=== PATIENT | female | born 1945 | race Caucasian/White ===

== ENCOUNTER 2017-07-15 06:44 | Emergency (ER) | payer MEDICARE, OTHER, SELFPAY ==
[2017-07-15 06:45] VITALS: BP 135/79; PULSE 77; RESP 20; TEMP 36.5; O2SAT 97; BMI 26.4
--- NOTE | 2017-07-15 06:59 | RAD_ITS ---
STUDY: X-RAY CHEST REASON FOR EXAM: Female, 71 years old. Chest pain, cough, asthma attack TECHNIQUE: PA and lateral views of the chest. COMPARISON: 02/12/2017 FINDINGS: There are superimposed monitor leads. There is hyperinflation of the lungs consistent with chronic obstructive lung disease (COPD). Stable mild linear interstitial changes in the lung bases left greater than right. There is no focal parenchymal abnormality. There is no demonstrated pleural abnormality. Normal size heart. Normal mediastinum and leif. Normal visualized pulmonary arteries. There is atherosclerotic calcification of the aortic arch with tortuosity. There is demineralization of the osseous structures. Stable mild loss of vertebral body height lower thoracic spine. Normal visualized ribs, clavicles, and shoulders. There is no demonstrated abnormality of the visualized soft tissue structures of the upper abdomen. RAD/Chest PA and Lateral IMPRESSION: COPD, osteopenia and presumed scarring left base. No acute cardiopulmonary disease. No significant interval change. Electronically Signed: Jennifer Mota MD at 8:03 EDT , Service support ,
--- NOTE | 2017-07-15 06:59 | EKG12_ITS ---
Test Reason : SOB Blood Pressure : / mmHG Vent. Rate : 062 BPM Atrial Rate : 062 BPM P-R Int : 150 ms QRS Dur : 088 ms QT Int : 430 ms P-R-T Axes : 073 044 038 degrees QTc Int : 436 ms Normal sinus rhythm Normal ECG Confirmed by TAMMIE CLAYTON MD ([id number]), news editor CLIVE HICKEY ([id number] on 07/17/2017 12:55:04 PM Referred By: WESTLEY Confirmed By:TAMMIE CLAYTON MD
--- NOTE | 2017-07-15 07:09 | ED.VISSUMM ---
- ER Visit Summary Date of Service: 07/15/17 Chief Complaint: Cough History of Present Illness: The patient is a 71 F with a cough over the past week. The patient has a history of asthma and aspiration pneumonia. She saw her PCP and was started on prednisone. She is also taking rescue inhalers and albuterol nebulizer treatments at home, but she has a continued cough. The cough has been so severe that she had posttussive emesis, and she developed petechial rash around her head and neck after coughing. She has some chest discomfort but no other associated symptoms. Minimal sputum. She did have a fever several days ago. Physical Examination: Vital signs unremarkable. Oxygen 97% on room air. Patient is sitting upright and appears comfortable. She is speaking in full sentences. Head and neck shows a petechial rash. HEENT them otherwise normal. Heart regular rate and rhythm. Lungs clear with good air movement. Test Results: EKG, labs, influenza testing, and chest x-ray pending. Emergency Department Course and Treatment: Patient was treated with Solu-Medrol and DuoNeb while awaiting results. She was placed on a monitor. Chest x-ray showed chronic changes but nothing acute or different from previous. EKG showed sinus rhythm at a rate of 62. No sign of ischemia or infarction. CBC normal. Basic metabolic panel unremarkable. Troponin normal. Influenza test negative. On reassessment, patient is sitting comfortably. Vitals are stable. Vitals are normal. I believe the patient is appropriate for outpatient care. Given her medical history as well as duration of her symptoms, will prescribe doxycycline. Will also prescribe Tessalon Perles. She should continue her prednisone and albuterol treatment at home. Follow-up with her doctor. Call tomorrow. Return for new or worsening symptoms. Patient did request an ultrasound to rule out aspiration pneumonia. She said this was the only way it was diagnosed in the past. I advised her that the x-ray was sufficient at this time given her clinical picture. I do not find an indication for ultrasound. She can follow-up with her PCP or return if worse. Treatment Plan: As above Disposition: Discharged Impression: 1. Bronchitis This note was generated with Bilnaation software. It may contain incorrect words, spelling, and punctuation that were not noted in review of the chart prior to signing ED Disposition - Plan for ED Patient: Chief Complaint: Cough Referrals: Ciesa,Annetta [Primary Care Provider] -
--- NOTE | 2017-07-15 07:12 | ED.DCSUM_ITS ---
- ER Visit Summary Date of Service: 07/15/17 Chief Complaint: Cough History of Present Illness: The patient is a 71 F with a cough over the past week. The patient has a history of asthma and aspiration pneumonia. She saw her PCP and was started on prednisone. She is also taking rescue inhalers and albuterol nebulizer treatments at home, but she has a continued cough. The cough has been so severe that she had posttussive emesis, and she developed petechial rash around her head and neck after coughing. She has some chest discomfort but no other associated symptoms. Minimal sputum. She did have a fever several days ago. Physical Examination: Vital signs unremarkable. Oxygen 97% on room air. Patient is sitting upright and appears comfortable. She is speaking in full sentences. Head and neck shows a petechial rash. HEENT them otherwise normal. Heart regular rate and rhythm. Lungs clear with good air movement. Test Results: EKG, labs, influenza testing, and chest x-ray pending. Emergency Department Course and Treatment: Patient was treated with Solu-Medrol and DuoNeb while awaiting results. She was placed on a monitor. Chest x-ray showed chronic changes but nothing acute or different from previous. EKG showed sinus rhythm at a rate of 62. No sign of ischemia or infarction. CBC normal. Basic metabolic panel unremarkable. Troponin normal. Influenza test negative. On reassessment, patient is sitting comfortably. Vitals are stable. Vitals are normal. I believe the patient is appropriate for outpatient care. Given her medical history as well as duration of her symptoms, will prescribe doxycycline. Will also prescribe Tessalon Perles. She should continue her prednisone and albuterol treatment at home. Follow-up with her doctor. Call tomorrow. Return for new or worsening symptoms. Patient did request an ultrasound to rule out aspiration pneumonia. She said this was the only way it was diagnosed in the past. I advised her that the x- ray was sufficient at this time given her clinical picture. I do not find an indication for ultrasound. She can follow-up with her PCP or return if worse. Treatment Plan: As above Disposition: Discharged Impression: 1. Bronchitis This note was generated with aSmallWorldation software. It may contain incorrect words, spelling, and punctuation that were not noted in review of the chart prior to signing ED Disposition - Plan for ED Patient: Chief Complaint: Cough Referrals: Ciesa,Annetta [Primary Care Provider] -
[2017-07-15 07:15] VITALS: PULSE 68; RESP 20
[2017-07-15] MEDS: Ipratropium/Albuterol Sulfate 3 ML AMPUL.NEB INHALATION (07:17)
[2017-07-15] MEDS: MethylPREDNISolone 125 MG/2 ML Vial IV (07:17)
[2017-07-15 07:19] VITALS: O2SAT 98
[2017-07-15 07:19] LABS: Absolute Lymphocyte Count 2.29 X10^3/ul (0.83-4.51); Basophil# 0.02 X10^3/uL; Basophil% 0.2 % (0-1); Eosinophil# 0.01 X10^3/uL; Eosinophils% 0.1 % (0-5); Hematocrit 39.3 % (37-47); Lymphocyte # 2.29 X10^3/ul (4.0); Lymphocyte % 22.7 % (19-41); Mean Corp Hgb Conc 33.1 g/gl (32-36); Mean Corpuscular Hgb 30.2 pg (27.0-32.0); Mean Corpuscular Volume 91.4 fL (81-99); Mean Platelet Vol. 9.3 fl (6.2-12.0); Monocyte# 0.77 X10^3/uL; Monocyte% 7.6 % (0-10); Neutrophil # 6.95 X10^3/uL (2.7-7.7); POSITIVE COUNT NO; POSITIVE DIFFERENTIAL NO; POSITIVE MORPHOLOGY NO; Platelet Count 242 K/mm3 (150-450); RBC Distribution Width CV 12.8 % (11.6-14.6); RBC Distribution Width SD 42.3 fl (35.1-43.9); White Blood Count 10.1 K/mm3 (4.4-11.0)
[2017-07-15 07:35] LABS: Anion Gap 7 (5-15); BUN 15 mg/dL (7-18); BUN/Creat Ratio 15.3 RATIO (10-20); Calcium,Total 8.6 mg/dL (8.5-10.1); Chloride 105 mmol/L (98-107); Creatinine, Serum 0.98 mg/dL (0.55-1.02); EST Glomerular Filtration Rate 60 mL/min (>60); Est Glom Filt Rate - Afr Amer 72 mL/min (>60); Estimated Creatinine Clearance 46.13 ml/min; Glucose 139 mg/dL (74-106); Potassium 3.7 mmol/L (3.5-5.1); Sodium Level 140 mmol/L (136-145)
--- NOTE | 2017-07-15 08:21 | ED.DEP ---
ED Disposition - Plan for ED Patient: Chief Complaint: Cough Instructions: ED Bronchitis Asthmatic Prescriptions: Benzonatate [Tessalon Perle] 100 mg PO TID PRN PRN #20 cap PRN Reason: Cough Doxycycline Monohydrate 100 mg PO BID #20 cap Referrals: Annetta Anderson [Primary Care Provider] -
[2017-07-15 08:30] VITALS: BP 128/69; PULSE 54; RESP 18; O2SAT 97
== END 2017-07-15 08:30 | disposition home or self-care (01) ==
PROVIDERS: Emergency Provider Emergency Medicine; Family Provider Nurse Practitioner; PCP Nurse Practitioner
DX: J40 Bronchitis, not specified as acute or chronic (principal); R23.3 Spontaneous ecchymoses; J44.9 Chronic obstructive pulmonary disease, unspecified; K21.9 Gastro-esophageal reflux disease without esophagitis; Z87.01 Personal history of pneumonia (recurrent); Z91.09 Other allergy status, other than to drugs and biological substances; Z86.79 Personal history of other diseases of the circulatory system; Z87.891 Personal history of nicotine dependence; Z79.899 Other long term (current) drug therapy
CPT/HCPCS: 71046; 80048; 84484; 85025; 87804; 93005; 94640; 96374; 99284; A4216

== ENCOUNTER → 2017-07-17 14:09 | Outpatient (CLI) | payer MEDICARE, OTHER, SELFPAY ==
[2017-07-23 12:07] LABS: Clam <0.10 kU/L (Class 0); Codfish <0.10 kU/L (Class 0); Corn <0.10 kU/L (Class 0); Egg, White <0.10 kU/L (Class 0); Milk (Cow) <0.10 kU/L (Class 0); Peanut 0.12 kU/L (Class 0/I); SCALLOP <0.10 kU/L (Class 0); Shrimp <0.10 kU/L (Class 0); Soybean <0.10 kU/L (Class 0); Walnut, (Food) <0.10 kU/L (Class 0); Wheat <0.10 kU/L (Class 0)
[2017-07-24 16:14] LABS: SESAME SEED <0.10 kU/L (Class 0)
== END ==
PROVIDERS: Family Provider Nurse Practitioner; PCP Nurse Practitioner; Visit Provider Otolaryngology Otolaryngology/Facial Plastic Surgery
DX: T78.40XA Allergy, unspecified, initial encounter (principal); J45.909 Unspecified asthma, uncomplicated
CPT/HCPCS: 36415; 86003

== ENCOUNTER → 2017-07-25 09:42 | Outpatient (CLI) | payer MEDICARE, OTHER, SELFPAY ==
--- NOTE | 2017-07-25 09:50 | BD_ITS ---
STUDY: DUAL ENERGY X-RAY ABSORPTIOMETRY / DXA REASON FOR EXAM: Female, 71 years old. The patient is postmenopausal. Loss of height of 2 inches. TECHNIQUE: Bone Mineral Density (BMD) measurements of lumbar spine and bilateral hips were obtained. COMPARISON: Comparison is made with prior study dated July 13, 2015. FINDINGS: Lumbar Spine (L1-L4): g/cm2 (0.673) / T-score (-4.1) / Z-score (-2.5) Findings are suggestive of osteoporosis with a high fracture risk. Left Femur Total: g/cm2 (0.661) / T-score (-2.8) / Z-score (-1.3) Left Femoral Neck: g/cm2 (0.6-1) / T-score (-3.0) / Z-score (-1.3) Right Femur Total: g/cm2 (0.686) / T-score (-2.6) / Z-score (-1.1) Right Femoral Neck: g/cm2 (0.625) / T-score (-3.0) / Z-score (-1.3) The T-Scores on the most recent prior examination were: Lumbar Spine (L1-L4): There has been worsening of bone density since the previous examination. Left Femur Total: which represents a worsening of 8.2%. Right Femur Total: which represents a worsening of 5.1%. BD/Dexa Bone Density Study IMPRESSION: The patient is considered osteoporotic as outlined below according to World Shane Organization (WHO) criteria with a high fracture risk. There has been worsening of bone density since the previous examination. Reference Information: The T-score is the number of standard deviations above or below the standard which is normal for young adults at their peak bone mineral density. The World Health Organization (WHO) interprets the T-scores as follows: Above -1 Normal bone density Between -1 and -2.5 Osteopenia Equal to / or below -2.5 Osteoporosis As a practical clinical guideline, osteopenia may be graded as follows: Mild -1 through -1.5 Moderate -1.6 through -2.0 Severe -2.1 through -2.4 The Z-score is the number of standard deviations above or below age-matched controls. A Z-score of less than -1.5 would be considered abnormal. References: 1. NIH Osteoporosis and Related Bone Diseases http://www.osteo.org 2. International Society for Clinical Densitometry http://www.iscd.org 3. National Osteoporosis Foundation http://www.nof.org Electronically Signed: Ghassan Hercules MD at 11:19 EDT Tel [phone], Service support ,
== END ==
PROVIDERS: Family Provider Nurse Practitioner; PCP Nurse Practitioner; Visit Provider Nurse Practitioner
DX: Z78.0 Asymptomatic menopausal state (principal)
CPT/HCPCS: 77080

== ENCOUNTER 2017-08-03 11:10 | Emergency (ER) | payer MEDICARE, OTHER, SELFPAY ==
[2017-08-03 11:11] VITALS: BP 136/84; PULSE 87; RESP 28; TEMP 37.1; O2SAT 100; BMI 23.0
--- NOTE | 2017-08-03 11:35 | RAD_ITS ---
STUDY: X-RAY CHEST REASON FOR EXAM: Female, 71 years old. Weakness and syncope. TECHNIQUE: AP and lateral views of the chest. COMPARISON: Comparison is made with prior study dated July 15, 2017. FINDINGS: EKG electrodes are seen. Hyperinflation. Stable mild increased markings at the left lung base suggestive of linear atelectasis and/or scarring. There is no demonstrated pleural abnormality. Normal size heart. Normal mediastinum and leif. Normal visualized pulmonary arteries. There is atherosclerotic tortuosity of the aortic arch and descending thoracic aorta. There is demineralization of the osseous structures. Normal visualized ribs, clavicles, and shoulders. There is no demonstrated abnormality of the visualized soft tissue structures of the upper abdomen. RAD/Chest PA and Lateral IMPRESSION: Hyperinflation. No acute abnormality is seen. Electronically Signed: Ghassan Hercules MD at 12:34 EDT Tel [phone], Service support ,
--- NOTE | 2017-08-03 11:35 | EKG12_ITS ---
Test Reason : CP Blood Pressure : / mmHG Vent. Rate : 068 BPM Atrial Rate : 068 BPM P-R Int : 132 ms QRS Dur : 088 ms QT Int : 382 ms P-R-T Axes : 078 044 063 degrees QTc Int : 406 ms Normal sinus rhythm Normal ECG Confirmed by MATILDE WARD, TAMMIE ([id number]), pictures editor CLIVE HICKEY ([id number]) on 08/07/2017 1:49:41 PM Referred By: DORIS Confirmed By:TAMMIE CLAYTON MD
[2017-08-03] MEDS: 0.9% Normal Saline 1,000 ML 1000 ML IV (11:59)
[2017-08-03 12:15] LABS: Bacteria 0 SEEN /hpf (None Seen); Mucous, Urine 0 SEEN /hpf (<or=2+); Red Blood Cells-Urine 0 SEEN /hpf (0-5); Squamous Epithelial Cells - UA 0 SEEN /hpf (5-10); White Blood Cells 0 SEEN /hpf (0-5)
[2017-08-03 12:19] LABS: Absolute Lymphocyte Count 4.02 X10^3/ul (0.83-4.51); Absolute Neutrophil Count 6.3 X10^3/uL (2.0-7.7); Basophil# 0.03 X10^3/uL; Basophil% 0.3 % (0-1); Eosinophil# 0.18 X10^3/uL; Eosinophils% 1.5 % (0-5); Hemoglobin 14.1 g/dl (12.0-15.0); Lymphocyte # 4.02 X10^3/ul (4.0); Lymphocyte % 34.4 % (19-41); Mean Corp Hgb Conc 33.6 g/gl (32-36); Mean Corpuscular Volume 92.3 fL (81-99); Mean Platelet Vol. 9.7 fl (6.2-12.0); Monocyte# 1.11 X10^3/uL; Monocyte% 9.5 % (0-10); Neutrophil % 53.8 % (47-70); Platelet Count 224 K/mm3 (150-450); RBC Distribution Width CV 12.9 % (11.6-14.6); RBC Distribution Width SD 42.4 fl (35.1-43.9); Red Blood Count 4.55 M/mm3 (4.2-5.4); White Blood Count 11.7 K/mm3 (4.4-11.0)
[2017-08-03 12:24] LABS: POSITIVE COUNT NO; POSITIVE DIFFERENTIAL NO; POSITIVE MORPHOLOGY NO
[2017-08-03 12:34] LABS: Anion Gap 7 (5-15); BUN 17 mg/dL (7-18); BUN/Creat Ratio 15.9 RATIO (10-20); Chloride 106 mmol/L (98-107); Creatinine, Serum 1.07 mg/dL (0.55-1.02); EST Glomerular Filtration Rate 54 mL/min (>60); Est Glom Filt Rate - Afr Amer 65 mL/min (>60); Estimated Creatinine Clearance 40.47 ml/min; Glucose 85 mg/dL (74-106); Potassium 4.3 mmol/L (3.5-5.1); Sodium Level 143 mmol/L (136-145)
[2017-08-03 12:35] LABS: Color, Urine Yellow (Yellow); Glucose, Dipstick Normal (Normal); Ketone-Dipstick Negative (Negative); Leukocyte Esterase-Dipstick Negative /ul (Negative); Nitrite-Dipstick Negative (Negative); Occult Blood-Urine Negative /ul (Negative); Protein-Dipstick Negative (Negative); Specific Gravity, Urine 1.015 (1.002-1.030); Urine Bilirubin Dipstick Negative (Negative); Urine Clarity Sl. Cloudy (Clear); Urine Urobilinogen Normal (Normal)
--- NOTE | 2017-08-03 12:40 | ED.VISSUMM ---
- ER Visit Summary Date of Service: 08/03/17 Chief Complaint: Weakness History of Present Illness: The patient is a 71 F sees Annetta Anderson and Dr. Garibay. She reports that she has had gradually increasing weakness for the past 4 weeks. States that she has had a cough over the same timeframe. She reports that this is improving and is now productive clear sputum. She just finished doxycycline and prednisone. She reports that she does have shortness of breath that is worsened with walking and is unchanged with laying down. She reports the chest tightness with coughing only. She has no chest pain with exertion. Physical Examination: Vitals: Stable. Afebrile. General: Well-nourished and well-developed. Head: Normocephalic atraumatic. Neck: Supple, no lymphadenopathy. No JVD. Nontender. Cardiovascular: Regular rate and rhythm. No murmurs. Respiratory: No respiratory distress. Clear to auscultation bilaterally. Abdominal: Soft, nontender, nondistended, normal bowel sounds. No guarding, rebound, or peritoneal signs. Back: Nontender. Extremities: Nontender, no edema. Skin: Normal color, no rash. Neurologic: Alert and oriented ?3. Cranial nerves II through XII are intact. Normal strength and sensation. Psych: Depressed affect. Test Results: EKG is sinus at 60 with no acute changes. Troponin is negative. UA is normal. Chem-7 is more for creatinine 1.07. CBC is more for white count 11.7. Chest x-ray shows chronic changes with no infiltrate. Emergency Department Course and Treatment: Patient is resting comfortably and without complaint. Treatment Plan: This time I do not have an explanation for the patient's weakness. I feel that she is a suitable candidate for further outpatient evaluation. She will be discharged instructions to follow-up her primary care physician as soon as possible. Return to the emergency department for any worsening symptoms. Disposition: To home in improved and stable condition. Impression: 1. Weakness, uncertain cause. This note was generated with [employer] dictation software. It may contain incorrect words, spelling, and punctuation that were not noted in review of the chart prior to signing ED Disposition - Plan for ED Patient: Chief Complaint: Weakness Instructions: ED Weakness [facility] Referrals: Annetta Anderson [Primary Care Provider] - As soon as possible
[2017-08-03 13:06] VITALS: BP 138/62; PULSE 60; RESP 20; O2SAT 97
== END 2017-08-03 13:11 | disposition home or self-care (01) ==
PROVIDERS: Emergency Provider Emergency Medicine; Family Provider Nurse Practitioner; PCP Nurse Practitioner
DX: R53.1 Weakness (principal); R05 Cough; R06.00 Dyspnea, unspecified; R07.89 Other chest pain; R51 Headache; J45.909 Unspecified asthma, uncomplicated; K21.9 Gastro-esophageal reflux disease without esophagitis; F41.9 Anxiety disorder, unspecified; F32.9 Major depressive disorder, single episode, unspecified; Z90.49 Acquired absence of other specified parts of digestive tract; Z79.899 Other long term (current) drug therapy
CPT/HCPCS: 71046; 80048; 81001; 84484; 85025; 93005; 96360; 99283; J7030; A4216

== ENCOUNTER → 2018-02-19 10:18 | Outpatient (CLI) | payer MEDICARE, OTHER, SELFPAY ==
--- NOTE | 2018-02-19 10:20 | BI_ITS ---
MAMMOGRAPHY - BILATERAL SCREENING REASON FOR EXAM: Female, 72 years old. Routine annual screening examination. PERTINENT HISTORY: Non-contributory. TECHNIQUE: Digital bilateral breast lara (3D mammographic acquisition) in the CC and MLO projections. 2-D mediolateral oblique (MLO) and craniocaudad (CC) views of both breasts were obtained. CAD: Full Field Digital Mammography with Computer Added Detection was performed. COMPARISON: Comparison is made with prior study dated November 27, 2016 and July 13, 2015. FINDINGS: Breast Composition: There are scattered areas of fibroglandular density. There are no dominant masses or suspicious calcifications. No other significant abnormalities are identified. There has been no significant change since the prior study. BI/SCREENING MAMM (CAD), BILAT IMPRESSION: Stable bilateral screening mammogram. Yearly follow-up mammogram recommended. (A) ASSESSMENT CATEGORY: BIRADS Category 1: Negative. A letter regarding these results will be sent to the patient by the facility within 30 days. Approximately 10% of breast cancers are not detected by mammography. A normal mammogram should not delay biopsy of a clinically suspicious abnormality. [id number] Electronically Signed: Ghassan Hercules MD at 11:18 EDT Tel [phone], Service support ,
== END ==
PROVIDERS: Family Provider Nurse Practitioner; PCP Nurse Practitioner; Visit Provider Nurse Practitioner
DX: Z12.31 Encounter for screening mammogram for malignant neoplasm of breast (principal)
CPT/HCPCS: 77063; 77067

== ENCOUNTER → 2018-04-01 09:32 | Outpatient (CLI) | payer MEDICARE, OTHER, SELFPAY ==
--- NOTE | 2018-04-01 09:38 | VDLE_ITS ---
Reason For Study: LEG PAIN RIGHT LEFT CFV is compressible, spontaneous, phasic, GSV is normal. competent and demonstrates normal CFV is compressible, spontaneous, phasic, augmentation. competent, and demonstrates normal Procedure augmentation. Exam performed in department. FV is compressible, spontaneous, phasic, A preliminary report was called and/or faxed competent and demonstrates normal to Pankaj Anderson. augmentation. POP V is compressible, spontaneous, phasic, competent and demonstrates normal augmentation. T/P Trunk is compressible. PTV is compressible. LT PerV is compressible. Interpretation Summary Deep veins of the left lower extremity are patent and compressible segmentally. There is no evidence of left lower extremity deep vein thrombosis. Valvular competence appears intact within the proximal deep venous system on the left . The left greater saphenous vein appears patent and compressible segmentally. Ordering Physician: Annetta Anderson Referring Physician: Annetta Anderson Performed By: Lay Ramos RVT
== END ==
PROVIDERS: Family Provider Nurse Practitioner; PCP Nurse Practitioner; Referring Provider Nurse Practitioner; Visit Provider Nurse Practitioner
DX: M79.605 Pain in left leg (principal)
CPT/HCPCS: 93971

== ENCOUNTER → 2018-04-19 13:59 | Outpatient (CLI) | payer MEDICARE, OTHER, SELFPAY | PROVIDERS: Family Provider Nurse Practitioner; PCP Nurse Practitioner; Referring Provider Otolaryngology Otolaryngology/Facial Plastic Surgery; Visit Provider Otolaryngology Otolaryngology/Facial Plastic Surgery | DX: R05 Cough (principal) | CPT/HCPCS: 87070; 87077; 87205 ==

== ENCOUNTER → 2018-06-06 06:19 | Outpatient (CLI) | payer MEDICARE, OTHER, SELFPAY ==
--- NOTE | 2018-06-06 06:26 | ECHOD_ITS ---
Reason For Study: CHEST PAIN Procedure This was a 2D Doppler, Color Flow transthoracic echocardiogram. Exam performed in department. Left Ventricle Normal LV size. Left ventricular systolic function is normal. The estimated ejection fraction is 60 %. Stage 2 diastolic dysfunction. No regional wall motion abnormalities noted. Right Ventricle Normal RV size. Normal systolic function. Atria Normal left atrium. Normal right atrium. Mitral Valve Normal mitral valve. Trivial eccentric mitral valve insufficiency. Tricuspid Valve Normal tricuspid valve. Aortic Valve Normal aortic valve. Trisinus/trileaflet aortic valve. Pulmonic Valve Normal pulmonic valve. Great Vessels Normal aortic root. The pulmonary artery is normal size. Normal inferior vena cava. Pericardium/Pleural Trivial pericardial effusion. MMode/2D Measurements & Calculations LVIDd: 4.2 cm IVSd: 1.0 cm Ao root diam: 2.6 cm LVIDs: 2.9 cm LVPWd: 1.1 cm RVDd: 2.6 cm FS: 31.5 % LAV(MOD-bp): 39.2 ml LVAd ap4: 22.5 cm2 SV(MOD-sp4): 39.5 ml LAV(MOD-bp) Indexed: 24.0 ml/m2 EDV(MOD-sp4): 62.8 ml LAV(MOD-sp2): 40.2 ml EDV(sp4-el): 65.0 ml LAV(MOD-sp4): 37.7 ml LVAs ap4: 12.3 cm2 ESV(MOD-sp4): 23.3 ml ESV(sp4-el): 23.1 ml EF(MOD-sp4): 62.9 % EF(sp4-el): 64.5 % SV(sp4-el): 42.0 ml LA A4 area: 15.2 cm2 LA dimension(2D): 4.0 cm RA A4 area: 12.2 cm2 Time Measurements MV dec time: 0.26 sec Doppler Measurements & Calculations MV E max marv: 81.0 cm/sec Lat Peak E' Marv: 10.9 cm/sec Med Peak E' Marv: 7.3 cm/sec MV A max marv: 48.1 cm/sec E/E' lat: 7.4 E/E' med: 11.1 MV E/A: 1.7 Ao V2 max: 120.2 cm/sec LV V1 max: 103.2 cm/sec PA V2 max: 97.8 cm/sec Ao max P.8 mmHg LV V1 max P.3 mmHg TR max marv: 266.3 cm/sec TR max P.5 mmHg Interpretation Summary Normal LV size. Left ventricular systolic function is normal. The estimated ejection fraction is 60 %. Stage 2 diastolic dysfunction. Trivial pericardial effusion. The global longitudinal strain = -22.4 % (normal). Ordering Physician: Yesenia Tse Referring Physician: Yesenia Tse Performed By: Lina Jean RDCS
--- NOTE | 2018-06-06 08:58 | STRESSREP ---
Stress Test Report Exercise myocardial perfusion stress test. 72-year-old lady with a history of chest pain Stress protocol: Resting EKG demonstrates sinus bradycardia with a rate of 55 bpm normal intervals are noted resting blood pressure 120/70 mmHg. The patient exercised according to regular Manuel protocol for total duration of 7 minutes and 30 seconds patient completed 1 minute and 30 seconds of stage III of the Manuel protocol. The maximum heart rate attained was 127 bpm which was 85% of maximum predicted heart rate the maximum workload was 9.3 metabolic equivalents. Patient maintained sinus rhythm throughout the recording. At rest there were no ST or T wave changes noted suggest ischemia at peak exercise upsloping ST changes only were noted with normally the criteria for ischemia. No clinical angina was noted the test was terminated due to shortness of breath. Myocardial perfusion protocol. 11.0 mCi of technetium 99m sestamibi was injected at rest. Patient exercised according to regular Manuel protocol for 7 minutes and 30 seconds attaining 9.3 metabolic equivalents. At peak exercise 36.0 mCi of technetium 99m sestamibi was injected stress images were obtained stress and rest images were reconstructed and compared in the short axis vertical long horizontal long axis. Gated images were also obtained per Perfusion SPECT analysis: Review of the stress images demonstrate normal uptake of tracer noted in all areas of the myocardium. The resting images similarly demonstrate normal uptake of tracer noted in all areas of the myocardium. No areas of reversibility are noted suggest ischemia. Gated SPECT analysis: The gated ejection fraction is noted to be 82%. Conclusion: Normal exercise myocardial perfusion stress test at a high workload. Preserved ejection fraction. No clinical angina noted.
== END ==
PROVIDERS: Family Provider Nurse Practitioner; PCP Nurse Practitioner; Referring Provider Internal Medicine; Visit Provider Internal Medicine
DX: R07.89 Other chest pain (principal); R94.31 Abnormal electrocardiogram [ECG] [EKG]
CPT/HCPCS: 78452; 93017; 93306; A9500; A4216

== ENCOUNTER 2018-07-23 11:14 | Emergency (ER) | payer MEDICARE, OTHER, SELFPAY ==
[2018-07-23 11:16] VITALS: BP 100/36; PULSE 63; RESP 16; TEMP 37.2; O2SAT 97; BMI 25.2
[2018-07-23 11:24] VITALS: BP 108/51; PULSE 63; RESP 16; TEMP 37.2; O2SAT 97
[2018-07-23 11:30] VITALS: O2SAT 98
--- NOTE | 2018-07-23 11:41 | EKG12_ITS ---
Test Reason : SOB Blood Pressure : / mmHG Vent. Rate : 059 BPM Atrial Rate : 059 BPM P-R Int : 142 ms QRS Dur : 078 ms QT Int : 424 ms P-R-T Axes : 079 041 047 degrees QTc Int : 419 ms Sinus bradycardia Otherwise normal ECG Confirmed by DEBRA LAGUERRE ([id number]), editorial writer NINA SAMPSON ([id number]) on 07/26/2018 11:13:48 AM Referred By: PRISCA Confirmed By:DEBRA LAGUERRE
--- NOTE | 2018-07-23 11:42 | RAD_ITS ---
STUDY: X-RAY CHEST REASON FOR EXAM: Female, 72 years old. Shortness of breath. Cough and fever. Chest tightness. TECHNIQUE: PA and lateral views of the chest. COMPARISON: Comparison is made with prior study dated August 03, 2017. FINDINGS: EKG electrodes are seen. Hyperinflation. Scattered calcified granulomas. Blunting of the left costophrenic angle. There is no demonstrated pleural abnormality. Normal size heart. Normal mediastinum and leif. Normal visualized pulmonary arteries. There is atherosclerotic calcification of the aortic arch with tortuosity. There is demineralization of the osseous structures. Normal visualized ribs, clavicles, and shoulders. There is no demonstrated abnormality of the visualized soft tissue structures of the upper abdomen. RAD/Chest PA and Lateral IMPRESSION: Hyperinflation. Blunting of the left costophrenic angle. Electronically Signed: Ghassan Hercules, at 12:41 EDT , Service support ,
--- NOTE | 2018-07-23 11:43 | ED.VISSUMM ---
- ER Visit Summary Date of Service: 07/23/18 Chief Complaint: Shortness of breath History of Present Illness: The patient is a 72 F who presents with shortness of breath that has been getting worse over the past 4 days. Patient states she has a history of pneumonia and thinks she may be developing pneumonia again. Patient states she is coughing up some green sputum. Patient admits to a fever of 100.3 at home. Patient states her breathing is worse with any exertion. Patient states she has tightness in her chest as well. Patient denies any nausea or vomiting. Patient does admit to a sore throat. Physical Examination: Vital signs are stable. Patient is afebrile. Patient is in no acute distress. Oral mucosa is pink and moist. Neck is supple. Trachea is midline. There is no JVD noted. Heart was regular rate and rhythm. Lungs were diminished bilaterally. There is adequate respiratory effort. Abdomen is soft and nontender. Cranial nerves II through XII are intact. There are no focal motor or sensory deficits noted. Test Results: CBC and basic metabolic profile were within normal limits. EKG showed normal sinus rhythm with a rate of 59. There are no acute ST or T wave changes. Chest x-ray shows hyperinflation but no acute cardiopulmonary process. Emergency Department Course and Treatment: Patient has a history of frequent pneumonia and bronchitis. Patient was given a dose of Zithromax here. Patient was given a prescription for Zithromax. Patient was instructed to follow-up with her primary care physician in 5-7 days. Patient understood and was agreeable with the plan. All questions were answered. Disposition: Discharge home Impression: Acute bronchitis This note was generated with [employer] dictation software. It may contain incorrect words, spelling, and punctuation that were not noted in review of the chart prior to signing ED Disposition - Plan for ED Patient: Disposition: Home or Assisted Living Diagnosis: Bronchitis Instructions: ED Upper Resp Infec Abx Tx Prescriptions: Azithromycin [Zithromax] 250 mg PO DAILY #4 tab Referrals: Annetta Anderson, DENICE-C [Primary Care Provider] - 5-7 Days
[2018-07-23 11:59] VITALS: PULSE 64; RESP 22
[2018-07-23] MEDS: Ipratropium/Albuterol Sulfate 3 ML AMPUL.NEB INHALATION (11:59)
[2018-07-23 12:16] LABS: Absolute Lymphocyte Count 2.78 X10^3/ul (0.83-4.51); Absolute Neutrophil Count 4.2 X10^3/uL (2.0-7.7); Basophil# 0.02 X10^3/uL; Basophil% 0.3 % (0-1); Eosinophil# 0.05 X10^3/uL; Eosinophils% 0.6 % (0-5); Hematocrit 42.1 % (37-47); Lymphocyte # 2.78 X10^3/ul (4.0); Mean Corp Hgb Conc 33.3 g/gl (32-36); Mean Corpuscular Hgb 29.7 pg (27.0-32.0); Mean Corpuscular Volume 89.4 fL (81-99); Monocyte# 0.91 X10^3/uL; Monocyte% 11.4 % (0-10); Neutrophil # 4.17 X10^3/uL (2.7-7.7); Neutrophil % 52.4 % (47-70); Platelet Count 208 K/mm3 (150-450); RBC Distribution Width SD 42.5 fl (35.1-43.9); Red Blood Count 4.71 M/mm3 (4.2-5.4)
[2018-07-23 12:19] LABS: POSITIVE COUNT NO; POSITIVE DIFFERENTIAL NO; POSITIVE MORPHOLOGY NO
[2018-07-23 12:26] LABS: Anion Gap 5 (5-15); BUN 14 mg/dL (7-18); BUN/Creat Ratio 13.9 RATIO (10-20); Calcium,Total 8.7 mg/dL (8.5-10.1); Chloride 105 mmol/L (98-107); Creatinine, Serum 1.01 mg/dL (0.55-1.02); EST Glomerular Filtration Rate 57 mL/min (>60); Est Glom Filt Rate - Afr Amer 69 mL/min (>60); Estimated Creatinine Clearance 42.26 ml/min; Glucose 80 mg/dL (74-106); Potassium 4.2 mmol/L (3.5-5.1); Sodium Level 139 mmol/L (136-145)
[2018-07-23] MEDS: Azithromycin 250 MG Tablet 500 MG PO (14:34)
[2018-07-23 14:35] VITALS: BP 120/57; PULSE 70; RESP 14; O2SAT 96
== END 2018-07-23 14:36 | disposition home or self-care (01) ==
PROVIDERS: Emergency Provider Emergency Medicine; Family Provider Nurse Practitioner; PCP Nurse Practitioner
DX: J20.9 Acute bronchitis, unspecified (principal); J45.909 Unspecified asthma, uncomplicated; Z79.899 Other long term (current) drug therapy; Z87.01 Personal history of pneumonia (recurrent); Z87.891 Personal history of nicotine dependence
CPT/HCPCS: 71046; 80048; 85025; 93005; 94640; 99285; A4216

== ENCOUNTER → 2019-02-24 09:36 | Outpatient (CLI) | payer MEDICARE, OTHER, SELFPAY ==
--- NOTE | 2019-02-24 09:39 | BI_ITS ---
MAMMOGRAPHY - BILATERAL SCREENING REASON FOR EXAM: Female, 73 years old. Routine annual screening examination. PERTINENT HISTORY: Non-contributory. TECHNIQUE: Digital bilateral breast stephen (3D mammographic acquisition) in the CC and MLO projections. 2-D mediolateral oblique (MLO) and craniocaudad (CC) views of both breasts were obtained. CAD: Full Field Digital Mammography with Computer Added Detection was performed. COMPARISON: Comparison is made with prior study dated February 19, 2018 and November 27, 2016. FINDINGS: Breast Composition: There are scattered areas of fibroglandular density. There are no dominant masses or suspicious calcifications. No other significant abnormalities are identified. There has been no significant change since the prior study. BI/SCREEN MAMM (CAD) W/STEPHEN BILAT IMPRESSION: Stable bilateral screening mammogram. Yearly follow-up mammogram recommended. (A) ASSESSMENT CATEGORY: BIRADS Category 1: Negative. A letter regarding these results will be sent to the patient by the facility within 30 days. Approximately 10% of breast cancers are not detected by mammography. A normal mammogram should not delay biopsy of a clinically suspicious abnormality. [id number] Electronically Signed: Ghassan Hercules, at 11:08 EST , Service support ,
== END ==
PROVIDERS: Family Provider Nurse Practitioner; PCP Nurse Practitioner; Referring Provider Nurse Practitioner; Visit Provider Nurse Practitioner
DX: Z12.31 Encounter for screening mammogram for malignant neoplasm of breast (principal)
CPT/HCPCS: 77063; 77067

== ENCOUNTER → 2020-03-09 09:02 | Outpatient (CLI) | payer MEDICARE, OTHER, SELFPAY ==
--- NOTE | 2020-03-09 09:05 | BI_ITS ---
MAMMOGRAPHY - BILATERAL SCREENING REASON FOR EXAM: Female, 74 years old. Routine annual screening examination. PERTINENT HISTORY: Non-contributory. TECHNIQUE: Digital bilateral breast stephen (3D mammographic acquisition) in the CC and MLO projections. 2-D mediolateral oblique (MLO) and craniocaudad (CC) views of both breasts were obtained. CAD: Full Field Digital Mammography with Computer Added Detection was performed. COMPARISON: Comparison is made with prior study dated 02/24/2019 and 02/19/2018. FINDINGS: Breast Composition: There are scattered areas of fibroglandular density. There are no dominant masses or suspicious calcifications. Stable benign-appearing bilateral axillary lymph nodes. No other significant abnormalities are identified. There has been no significant change since the prior study. BI/SCREEN MAMM (CAD) W/STEPHEN BILAT IMPRESSION: Stable bilateral screening mammogram. Yearly follow-up mammogram recommended. (A) ASSESSMENT CATEGORY: BIRADS Category 2: Benign. A letter regarding these results will be sent to the patient by the facility within 30 days. Approximately 10% of breast cancers are not detected by mammography. A normal mammogram should not delay biopsy of a clinically suspicious abnormality. [id number] Electronically Signed: Ghassan Hercules, at 10:17 EST , Service support ,
--- NOTE | 2020-03-09 09:21 | BD_ITS ---
STUDY: DUAL ENERGY X-RAY ABSORPTIOMETRY / DXA REASON FOR EXAM: Female, 74 years old. 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 COMPARISON: Comparison is made with prior study dated 07/25/2017. FINDINGS: Lumbar Spine (L1-L4): g/cm2 (0.608) / T-score (-4.6) / Z-score (-2.9) Findings are suggestive of osteoporosis with a high fracture risk. Left Femur Total: g/cm2 (0.662) / T-score (-2.7) / Z-score (-1.1) Left Femoral Neck: g/cm2 (0.608) / T-score (-3.1) / Z-score (-1.3) Right Femur Total: g/cm2 (0.684) / T-score (-2.6) / Z-score (-0.9) Right Femoral Neck: g/cm2 (0.695) / T-score (-2.5) / Z-score (-0.6) The T-Scores on the most recent prior examination were: Lumbar Spine (L1-L4): There has been worsening of bone density since the previous examination. Left Femur Total: which represents an improvement of 0.2%. Right Femur Total: which represents a worsening of 0.3%. BD/Dexa Bone Density Study IMPRESSION: The patient is considered osteoporotic as outlined below according to World Shane Organization (WHO) criteria with a high fracture risk. There has been worsening of bone density since the previous examination. Reference Information: The T-score is the number of standard deviations above or below the standard which is normal for young adults at their peak bone mineral density. The World Health Organization (WHO) interprets the T-scores as follows: Above -1 Normal bone density Between -1 and -2.5 Osteopenia Equal to / or below -2.5 Osteoporosis As a practical clinical guideline, osteopenia may be graded as follows: Mild -1 through -1.5 Moderate -1.6 through -2.0 Severe -2.1 through -2.4 The Z-score is the number of standard deviations above or below age-matched controls. A Z-score of less than -1.5 would be considered abnormal. References: 1. NIH Osteoporosis and Related Bone Diseases www osteo.org 2. International Society for Clinical Densitometry www iscd.org 3. National Osteoporosis Foundation www nof.org Electronically Signed: Ghassan Hercules, at 10:57 EST , Service support ,
== END ==
PROVIDERS: PCP Nurse Practitioner; Referring Provider Nurse Practitioner; Visit Provider Nurse Practitioner
DX: Z12.31 Encounter for screening mammogram for malignant neoplasm of breast (principal); Z78.0 Asymptomatic menopausal state
CPT/HCPCS: 77063; 77067; 77080

== ENCOUNTER → 2020-06-21 09:56 | Outpatient (CLI) | payer MEDICARE, OTHER, SELFPAY ==
--- NOTE | 2020-06-21 10:04 | MRI_ITS ---
STUDY: MRI ORBITS WITH AND WITHOUT CONTRAST REASON FOR EXAM: Female, 74 years old. LEFT 4TH NERVE PALSY -- ATTN ORBITS TECHNIQUE: Standardized fat and water weighted pulse sequences were obtained in all 3 orthogonal planes, pre-and post contrast administration. IV DOTAREM 13ML was administered for the contrast portion of the examination. COMPARISON: 08/09/2011 FINDINGS: Normal bilateral globes. Normal bilateral optic nerve sheath complexes and optic nerves. Normal bilateral intraconal and extraconal spaces. Normal bilateral extraocular muscles. Normal optic chiasm and post-chiasmatic tracts. Normal sella turcica, pituitary gland, infundibular stalk, and hypothalamus. Normal bilateral cavernous sinuses. Normal tectal plate and pineal gland. Normal flow voids within the major intracranial circulation suggesting patency by spin echo criteria. Normal size of the ventricles and extra-axial spaces for the patient''s age. There are a limited number of small white matter hyperintensities, distributed throughout the deep white matter tracts of the cerebral hemispheres, consistent with mild chronic white matter ischemic changes. Normal bilateral basal ganglia. Normal thalami. There is no extra-axial fluid accumulation. Normal midbrain, bharath and medulla. Normal cerebellum. Normal basal cisterns. MRI/Brain W/WO Contrast IMPRESSION: No acute intracranial abnormality or masses. Unremarkable orbits. Electronically Signed: Luis Angel Blue MD at 15:59 EST Tel , Service support ,
[2020-06-21 10:26] LABS: CREATININE FINGERSTICK 0.9 mg/dL (0.55-1.02)
== END ==
PROVIDERS: PCP Nurse Practitioner; Referring Provider Ophthalmology; Visit Provider Ophthalmology
DX: H49.12 Fourth [trochlear] nerve palsy, left eye (principal)
CPT/HCPCS: 70553; A9575

== ENCOUNTER → 2020-07-09 09:47 | Outpatient (CLI) | payer MEDICARE, OTHER, SELFPAY | PROVIDERS: PCP Nurse Practitioner; Visit Provider Ophthalmology | DX: H57.813 Brow ptosis, bilateral (principal); H53.2 Diplopia | CPT/HCPCS: 36415 ==

== ENCOUNTER 2020-07-16 14:29 | Outpatient (RCR) | payer MEDICARE, OTHER, SELFPAY | END 2020-09-28 23:59 | LOC: IMMUN 14:29 | PROVIDERS: PCP Nurse Practitioner; Referring Provider Family Medicine; Visit Provider Family Medicine | DX: Z23 Encounter for immunization (principal) | CPT/HCPCS: 0001A; 0002A; 91300 ==

== ENCOUNTER → 2021-02-02 16:51 | Outpatient (CLI) | payer MEDICARE, OTHER, SELFPAY ==
--- NOTE | 2021-02-02 16:52 | RAD_ITS ---
STUDY: X-RAY CHEST REASON FOR EXAM: Female, 75 years old. cough TECHNIQUE: PA and lateral COMPARISON: 07/23/2018 FINDINGS: The lungs are clear and expanded. There is a subtle nodule or nodular airspace opacity in the right midlung field measuring approximately 9 mm in size likely within the superior segment of the right lower lobe not visualized on prior study.. There is no demonstrated pleural abnormality. Normal size heart. Normal mediastinum and leif. Normal visualized pulmonary arteries. Mildly calcified aortic arch and descending thoracic aorta. Dorsal spine demonstrates mild degenerative change. Normal visualized ribs, clavicles, and shoulders. There is no demonstrated abnormality of the visualized soft tissue structures of the upper abdomen. RAD/Chest PA and Lateral IMPRESSION: Small parenchymal nodule or nodular airspace opacity in the right midlung field. CT recommended to exclude parenchymal nodule. Electronically Signed: Fidel Gerard MD at 17:21 EDT , Service support ,
== END ==
PROVIDERS: PCP Nurse Practitioner; Referring Provider Physician Assistant; Visit Provider Physician Assistant
DX: R05.9 Cough, unspecified (principal)
CPT/HCPCS: 71046

== ENCOUNTER → 2021-02-03 11:17 | Outpatient (CLI) | payer MEDICARE, OTHER, SELFPAY ==
--- NOTE | 2021-02-03 11:22 | CT_ITS ---
STUDY: CT CHEST WITH CONTRAST REASON FOR EXAM: Female, 75 years old. 9mm RML lung nodule RADIATION DOSAGE (If Supplied By Facility): CTDIvol = ( 9.60 ) mGy, DLP = ( 209.80 ) mGycm TECHNIQUE: Transaxial imaging was performed following intravenous administration of IV 100mL Isovue-370. Multiplanar coronal and sagittal images were reformatted. Individualized dose optimization techniques were used for this CT. COMPARISON: None. FINDINGS: Increased linear markings at the lung bases slightly more prominent on the left side suggestive of atelectasis and/or scarring. There is no demonstrated pleural abnormality. Normal heart and pericardium. Normal mediastinum. Normal hilar regions. Normal enhanced pulmonary arteries. There is atherosclerotic calcification of the aortic arch . There are multi-level degenerative changes of the thoracic spine. Healed right rib fractures. There is no demonstrated abnormality of the visualized upper abdomen. CT/Chest WITH Contrast IMPRESSION: Findings suggestive of linear atelectasis and/or scarring at the lung bases. Electronically Signed: Ghassan Hercules MD at 12:09 EDT , Service support ,
[2021-02-03 11:36] LABS: CREATININE FINGERSTICK 0.8 mg/dL (0.55-1.02); EGFR FINGERSTICK > 60.0000 mL/min (>60)
== END ==
PROVIDERS: PCP Nurse Practitioner; Referring Provider Physician Assistant; Visit Provider Physician Assistant
DX: R91.1 Solitary pulmonary nodule (principal)
CPT/HCPCS: 71260; Q9967

== ENCOUNTER 2021-03-24 09:54 | Emergency (ER) | payer MEDICARE, OTHER, SELFPAY ==
[2021-03-24 09:56] VITALS: BP 119/52; PULSE 65; RESP 26; TEMP 35.8; O2SAT 94; BMI 24.9
--- NOTE | 2021-03-24 11:31 | ED.VIS.DYS ---
HPI History of Present Illness Chief Complaint: Shortness of Breath Informant: patient Narrative Narrative: 75-year-old female with a history of asthma presenting to the emergency department with cough and shortness of breath. Patient states that she fell ill approximately 11 days ago. She saw urgent care over the weekend and was prescribed azithromycin. She had taken 3 days of prednisone that she had leftover from prior prescription. She sees Dr. Garibay for pulmonary. She states that her doctors were unable to see her today and they recommended her coming to emergency. She is concerned about pneumonia [facility] Medical History (Updated 03/24/21 @ 14:[address] Ludwig Hodges DO) Asthma GERD (gastroesophageal reflux disease) Nodule of middle lobe of right lung PVD (peripheral vascular disease) Home Medications albuterol sulfate [ProAir HFA] 1 - 2 puff INHALATION Q4H PRN PRN 09/09/13 [History Last Taken 11/04/14 08:00 1 PUFF] buspirone 5 mg PO DAILY PRN PRN 09/09/13 [History Last Taken 11/04/14 17:00 5 MG] escitalopram oxalate [Lexapro] 5 mg PO DAILY 04/22/15 [History Last Taken Unknown] famotidine 20 mg PO BID #30 tab 09/30/16 [Rx Last Taken Unknown] fluticasone furoate-vilanterol [Breo Ellipta Inhaler] 1 ea IH DAILY 08/03/17 [History Last Taken Unknown] amoxicillin-pot clavulanate 875 mg PO Q12H #20 tablet 03/24/21 [Rx Last Taken Unknown] doxycycline monohydrate 100 mg PO BID #20 capsule 03/24/21 [Rx Last Taken Unknown] Allergy/AdvReac Type Severity Reaction Status Date / Time lansoprazole [From Prevacid] Allergy Swelling Verified 03/24/21 09:55 Surgical History History of cholecystectomy Social History (Updated 03/24/21 @ 11:[address] Ludwig Hodges DO) Smoking Status: Former smoker substance use type: does not use ROS ROS ED Constitutional Constitutional ED: Reports fever(s); Denies chills or weight loss Eyes Eyes: Denies change in vision or diplopia ENT ENT ED: Reports rhinorrhea; Denies ear pain or sore throat Cardiovascular Cardiovascular: Denies chest pain, orthopnea, palpitations or racing heartbeat Respiratory/Chest Respiratory/Chest: Reports cough, dyspnea, dyspnea on exertion and sputum; Denies orthopnea Gastrointestinal Gastrointestinal: Denies abdominal pain, diarrhea, nausea or vomiting Genitourinary Genitourinary ED: Denies dysuria, hematuria or urinary frequency Musculoskeletal Musculoskeletal: Denies arthralgias or myalgias Integumentary Denies abscess or rash Neurologic Neurologic: Denies headache(s) or weakness Psychiatric Psychiatric: Denies anxiety, depression, suicidal ideation or suicidal thoughts Endocrine Endocrinology: Denies polydipsia, polyphagia or polyuria Allergic/Immunologic Allergic/Immunologic ED: Denies mouth swelling, tongue swelling or urticaria EXAM Physical Exam Const Vital Signs: 03/24/21 09:56 03/24/21 11:43 03/24/21 11:55 Temperature 96.5 F L 98.4 F Temperature Source Temporal Temporal Pulse Rate 65 64 65 Respiratory Rate 26 H 16 16 Respiratory Effort Short of Breath Respiratory Depth Normal Respiratory Pattern Normal Normal Blood Pressure 119/52 L 107/55 L Blood Pressure Mean 74 72 Pulse Ox 94 95 Oxygen Delivery Method Room Air Room Air 03/24/21 13:27 Temperature Temperature Source Pulse Rate 74 Respiratory Rate 18 Respiratory Effort Respiratory Depth Respiratory Pattern Blood Pressure 105/47 L Blood Pressure Mean 66 Pulse Ox 93 Oxygen Delivery Method Room Air Positive well nourished and well developed General Appearance ED: well developed HEENT Reports normocephalic, head/scalp atraumatic, TM's clear and moist mucous membranes atraumatic Tympanic Membrane ED: Yes TM's clear Eyes PERRL and EOMs intact bilaterally Neck no lymphadenopathy, supple and no JVD Resp normal respiratory effort Resp Narrative: Patient has rhonchi and expiratory wheezes bilaterally Auscultation: diminished lung sounds Cardio regular rate, regular rhythm and no murmurs GI normal to inspection, nondistended, normoactive bowel sounds and non-tender Palpation: soft Back/Spine no CVA tenderness, normal ROM and normal to inspection Extremity normal to inspection General Extremety ED: Negative for edema General Extremity: Negative for edema Neuro oriented x3 and CN's II-XII intact bilaterally Sensorium / Orientation: alert Motor Exam: strength 5/5 throughout Psych mental status grossly normal Mood & Affect: Negative for depressed or tearful Skin no rashes or lesions noted and no wounds MDM MDM MDM Narrative Medical decision making narrative: Patient's white count was slightly elevated at 11.3. My interpretation of the chest x-ray is right sided infiltrate. Patient is not requiring any supplemental oxygen. Patient will be started on Augmentin and doxycycline. She should continue her home nebulizers every 4 hours. Follow-up with primary care if not improving return if worsening or concerns Lab Data Attestation: I reviewed the patient's lab results. Labs: Laboratory Results - last 24 hr 03/24/21 03/24/21 10:05 10:05 WBC 11.3 H RBC 4.23 Hgb 12.6 Hct 38.4 MCV 90.8 MCH 29.8 MCHC 32.8 RDW Std Deviation 43.0 RDW Coeff of Corinne 12.9 Plt Count 272 MPV 10.2 Immature Gran % (Auto) 0.900 Neut % (Auto) 59.4 Lymph % (Auto) 26.0 Ross % (Auto) 12.4 H Eos % (Auto) 0.9 Baso % (Auto) 0.4 Absolute Neuts (auto) 6.7 Absolute Lymphs (auto) 2.93 Nucleated RBC % 0 Sodium 138 Potassium 4.0 Chloride 105 Carbon Dioxide 28.0 Anion Gap 5 BUN 13 Creatinine 0.99 Estim Creat Clear Calc 44.86 Est GFR (MDRD) Af Amer 70 Est GFR (MDRD) Non-Af 58 L BUN/Creatinine Ratio 13.1 Glucose 83 Calcium 9.0 Radiography Diagnostic Testing: Clinical Impression(s) from Imaging Studies Chest X-Ray 03/24/21 11:47 IMPRESSION: Patchy bibasilar infiltrates worse at the right lung base. Electronically Signed: Ghassan Hercules MD at 12:17 EST , Service support , EKG Initial EKG: Attestation: I personally reviewed and interpreted this EKG as follows: Comments: Normal sinus rhythm with a ventricular rate of 65 bpm Discharge Plan Triage Chief Complaint: Shortness of Breath ED Provider: Ludwig Hodges Dx/Rx/DC Orders Clinical Impression: Pneumonia Instructions: ED Pneumonia (Adult) Prescriptions: New doxycycline monohydrate 100 MG capsule 100 mg PO BID Qty: 20 RF: 0 amoxicillin-pot clavulanate [amoxicillin-pot clavulanate] 875 MG tablet 875 mg PO Q12H Qty: 20 RF: 0 No Action buspirone 5 MG tablet 5 mg PO DAILY PRN PRN (Reason: Anxiety) RF: 0 albuterol sulfate [ProAir HFA] 1 PUFF inhaler 1 - 2 puff inhalation Q4H PRN PRN (Reason: Wheezing) RF: 0 escitalopram oxalate [Lexapro] 5 MG tablet 5 mg PO DAILY RF: 0 famotidine 20 MG tablet 20 mg PO BID Qty: 30 RF: 0 Breo Ellipta 1 EACH blister with device 1 ea IH DAILY RF: 0 Primary Care Provider: Annetta Anderson NP Referrals: Annetta Anderson [employer], [employer] [Primary Care Provider] - 3-5 Days if not improving Disposition Disposition: Home, Self Care
[2021-03-24] MEDS: MethylPREDNISolone 125 MG/2 ML Vial IV (11:42)
[2021-03-24 11:43] VITALS: BP 107/55; PULSE 64; RESP 16; TEMP 36.9; O2SAT 95
[2021-03-24 11:44] LABS: Absolute Lymphocyte Count 2.93 X10^3/uL (0.83-4.51); Absolute Neutrophil Count 6.7 X10^3/uL (2.0-7.7); Basophil# 0.04 X10^3/uL; Basophil% 0.4 % (0-1); Eosinophils% 0.9 % (0-5); Hematocrit 38.4 % (37-47); Hemoglobin 12.6 g/dL (12.0-15.0); Lymphocyte # 2.93 X10^3/ul (0.83-4.51); Mean Corp Hgb Conc 32.8 g/dL (32-36); Mean Corpuscular Hgb 29.8 pg (27.0-32.0); Mean Corpuscular Volume 90.8 fL (81-99); Mean Platelet Vol. 10.2 fl (6.2-12.0); Monocyte% 12.4 % (0-10); NRBC Flagged by Analyzer 0 % (0-5); Neutrophil % 59.4 % (47-70); Platelet Count 272 K/mm3 (150-450); RBC Distribution Width CV 12.9 % (11.6-14.6); Red Blood Count 4.23 M/mm3 (4.2-5.4); White Blood Count 11.3 K/mm3 (4.4-11.0)
--- NOTE | 2021-03-24 11:47 | RAD_ITS ---
STUDY: X-RAY CHEST REASON FOR EXAM: Female, 75 years old. One week history of shortness of breath and productive cough. TECHNIQUE: Single AP portable view of the chest. COMPARISON: Comparison is made with prior study dated 02/02/2021. FINDINGS: EKG electrodes are seen. Patchy bibasilar infiltrates likely worse on the right side. There is no demonstrated pleural abnormality. Normal size heart. Normal mediastinum and leif. Normal visualized pulmonary arteries. There is atherosclerotic calcification of the aortic arch with tortuosity. Normal visualized thoracic spine. Normal visualized ribs, clavicles, and shoulders. There is no demonstrated abnormality of the visualized soft tissue structures of the upper abdomen. RAD/Chest 1 View (Portable) IMPRESSION: Patchy bibasilar infiltrates worse at the right lung base. Electronically Signed: Ghassan Hercules MD at 12:17 EST , Service support ,
[2021-03-24] MEDS: Ipratropium/Albuterol Sulfate 3 ML AMPUL.NEB INHALATION (11:54)
[2021-03-24] MEDS: Albuterol 2.5 MG/3 ML VIAL.NEB. INHALATION (11:54)
[2021-03-24 11:55] VITALS: PULSE 65; RESP 16
[2021-03-24 11:57] LABS: Anion Gap 5 (5-15); BUN 13 mg/dL (7-18); BUN/Creat Ratio 13.1 RATIO (10-20); Chloride 105 mmol/L (98-107); Creatinine, Serum 0.99 mg/dL (0.55-1.02); EST Glomerular Filtration Rate 58 mL/min (>60); Est Glom Filt Rate - Afr Amer 70 mL/min (>60); Estimated Creatinine Clearance 44.86 ml/min; Glucose 83 mg/dL (74-106); Sodium Level 138 mmol/L (136-145)
[2021-03-24 13:27] VITALS: BP 105/47; PULSE 74; RESP 18; O2SAT 93
== END 2021-03-24 14:14 | disposition home or self-care (01) ==
PROVIDERS: Emergency Provider Emergency Medicine; PCP Nurse Practitioner
DX: J18.9 Pneumonia, unspecified organism (principal); I73.9 Peripheral vascular disease, unspecified; K21.9 Gastro-esophageal reflux disease without esophagitis; J45.909 Unspecified asthma, uncomplicated; Z79.899 Other long term (current) drug therapy; Z87.891 Personal history of nicotine dependence
CPT/HCPCS: 71045; 80048; 85025; 87426; 87804; 93005; 94640; 96374; 99285

== ENCOUNTER 2021-05-06 03:36 | Emergency (ER) | payer MEDICARE, OTHER, SELFPAY ==
[2021-05-06 03:37] VITALS: BP 134/60; PULSE 60; PULSE 61; RESP 16; RESP 18; TEMP 36.3; O2SAT 98; O2SAT 99; BMI 23.3
--- NOTE | 2021-05-06 03:42 | EKG12_ITS ---
Test Reason : SYNCOPE Blood Pressure : / mmHG Vent. Rate : 060 BPM Atrial Rate : 060 BPM P-R Int : 144 ms QRS Dur : 086 ms QT Int : 398 ms P-R-T Axes : 074 029 052 degrees QTc Int : 398 ms Normal sinus rhythm Low voltage QRS Confirmed by MARISSA WARD, MARJAN ([id number]), design editor NINA SAMPSON ([id number]) on 05/09/2021 11:32:45 AM Referred By: TAMIKO Confirmed By:MARJAN ANN MD
--- NOTE | 2021-05-06 04:04 | CT_ITS ---
HISTORY: head injury seen to be, neck pain TECHNIQUE: Helically acquired images were obtained of the cervical spine. 2-D reformatted images were reviewed. A radiation dose optimization technique was used for the scan. # of images incl. paperwork: [id number]. IV contrast dosage and agent: None. COMPARISON: None. FINDINGS: VERTEBRAE: No fracture identified. Vertebral body heights are maintained. No suspicious osseous lesion identified. ALIGNMENT: No significant anterior or posterior subluxation. Slight straightening of cervical lordosis likely chronic and/or positional in nature. INTERVERTEBRAL DISCS: Mild degenerative disc space narrowing at C3-4 and C5-6. No significant spinal canal stenosis. SOFT TISSUES: No prevertebral soft tissue thickening. Small amount of scattered intravenous gas likely secondary to recent line placement and/or venous cannulation. LUNG APICES: No acute findings. CT/Spine Cervical without Contras IMPRESSION: No evidence of acute cervical spinal injury. Individualized dose optimization techniques were used for this CT. at 0526 Reported and signed by: Yoan Pope MD Electronically Signed: Yoan Pope MD at 5:25 EST Tel , Service support ,
--- NOTE | 2021-05-06 04:04 | CT_ITS ---
HISTORY: Head injury, syncope, hit forehead, abrasions EXAMINATION: CT Head or Brain W/O Contrast Injection TECHNIQUE: Multiple axial images were obtained of the brain without intravenous contrast. A radiation dose optimization technique was used for this scan. IV Contrast dosage and agent: None. COMPARISON: Brain MRI from 06/21/20 FINDINGS: BRAIN PARENCHYMA: No intra- or extra-axial hemorrhage. No evidence of acute major territorial infarct. No intracranial mass or mass effect. There is mild, chronic hypoattenuation of the deep cerebral white matter. Chronic cerebral involutional changes also noted. CSF SPACES: Prominent cerebral sulci secondary to involutional changes. No hydrocephalus. Basal cisterns are patent. Intracranial atherosclerotic calcifications. CALVARIUM, SKULL BASE, PARANASAL SINUSES AND MASTOID AIR CELLS: Left frontal scalp swelling. No calvarial fracture. No acute findings within paranasal sinuses. Mastoid air cells are well pneumatized. ORBITS: No acute findings. CT/Brain/Head without Contrast IMPRESSION: Left frontal scalp swelling with no calvarial fracture or acute intracranial abnormality. Chronic involutional and white matter changes. Individualized dose optimization techniques were used for this CT. at 0529 Reported and signed by: Yoan Pope MD Electronically Signed: Yoan Pope MD at 5:28 EST Tel , Service support ,
[2021-05-06 04:12] LABS: Absolute Lymphocyte Count 3.85 X10^3/uL (0.83-4.51); Absolute Neutrophil Count 6.7 X10^3/uL (2.0-7.7); Basophil# 0.04 X10^3/uL; Basophil% 0.3 % (0-1); Eosinophil# 0.18 X10^3/uL; Eosinophils% 1.4 % (0-5); Hematocrit 38.8 % (37-47); Hemoglobin 12.6 g/dL (12.0-15.0); Lymphocyte # 3.85 X10^3/ul (0.83-4.51); Lymphocyte % 30.4 % (19-41); Mean Corp Hgb Conc 32.5 g/dL (32-36); Mean Corpuscular Hgb 29.7 pg (27.0-32.0); Mean Corpuscular Volume 91.5 fL (81-99); Mean Platelet Vol. 10.2 fl (6.2-12.0); Monocyte# 1.74 X10^3/uL; Monocyte% 13.7 % (0-10); NRBC Flagged by Analyzer 0 % (0-5); Neutrophil # 6.66 X10^3/uL (2.7-7.7); Neutrophil % 52.7 % (47-70); POSITIVE DIFFERENTIAL YES; Platelet Count 237 K/mm3 (150-450); RBC Distribution Width CV 13.7 % (11.6-14.6); RBC Distribution Width SD 46.4 fl (35.1-43.9); Red Blood Count 4.24 M/mm3 (4.2-5.4); White Blood Count 12.7 K/mm3 (4.4-11.0)
--- NOTE | 2021-05-06 04:13 | EDS_ITS ---
HPI History of Present Illness Chief Complaint: Syncope Narrative Narrative: Patient is a 71-year-old female who had pneumonia with a collapsed lung back at the end of February and early March. She has been at home and states that over the last 1 to 2 days she has been having increased generalized weakness and fatigue with mild cough. She states this evening she was in her recliner when she got up to go to the bathroom and then the next thing she remembers is waking up on the floor. She denied any chest pain or palpitations prior to the presumed syncopal event. She denies any blood thinner use. She denies any fevers chills diarrhea dysuria or abdominal pain. Patient does state that her tested positive for COVID just 4 days ago. [facility] Medical History Asthma GERD (gastroesophageal reflux disease) Nodule of middle lobe of right lung PVD (peripheral vascular disease) Home Medications albuterol sulfate [ProAir HFA] 1 - 2 puff INHALATION Q4H PRN PRN 09/09/13 [History Last Taken 11/04/14 08:00 1 PUFF] buspirone 5 mg PO DAILY PRN PRN 09/09/13 [History Last Taken 11/04/14 17:00 5 MG] escitalopram oxalate [Lexapro] 5 mg PO DAILY 04/22/15 [History Last Taken Unknown] famotidine 20 mg PO BID #30 tab 09/30/16 [Rx Last Taken Unknown] fluticasone furoate-vilanterol [Breo Ellipta Inhaler] 1 ea IH DAILY 08/03/17 [History Last Taken Unknown] Allergy/AdvReac Type Severity Reaction Status Date / Time lansoprazole [From Prevacid] Allergy Swelling Verified 03/24/21 09:55 Surgical History History of cholecystectomy Social History (Updated 03/24/21 @ 11:[address] Ludwig Hodges DO) Smoking Status: Former smoker substance use type: does not use ROS ROS ED Constitutional Constitutional ED: Denies chills or fever(s) ENT ENT ED: Reports rhinorrhea; Denies sore throat Cardiovascular Cardiovascular: Denies chest pain or palpitations Respiratory/Chest Respiratory/Chest: Reports cough; Denies dyspnea Gastrointestinal Gastrointestinal: Denies abdominal pain, diarrhea, nausea or vomiting Genitourinary Genitourinary ED: Denies dysuria Musculoskeletal Musculoskeletal: Reports myalgias Integumentary Denies Abrasions or rash Neurologic Neurologic: Reports weakness; Denies headache(s) Hematologic/Lymphatic Hematologic/Lymphatic: Denies easy bleeding or easy bruising EXAM Physical Exam Const Vital Signs: 05/06/21 03:37 05/06/21 03:42 05/06/21 05:01 Temperature 97.3 F L Temperature Source Temporal Pulse Rate 61 68 Respiratory Rate 16 14 Respiratory Pattern Normal Blood Pressure 134/60 H 124/57 H Blood Pressure Mean 84 79 Pulse Ox 98 98 Oxygen Delivery Method Room Air Room Air 05/06/21 06:19 Temperature Temperature Source Pulse Rate 70 Respiratory Rate 14 Respiratory Pattern Blood Pressure 110/56 L Blood Pressure Mean 74 Pulse Ox 93 Oxygen Delivery Method Room Air Positive well nourished and well developed General Appearance ED: well developed HEENT Reports dry mucous membranes HEENT Narrative: Cobblestoning the posterior pharynx consistent with sinus drainage but no airway edema or compromise. There is a 1 x 2 area of ecchymosis/hematoma to the left frontal portion of the scalp consistent with fall. However no signs of depressed or basilar skull fracture Mouth ED: Yes dry mucous membranes Mouth: dry mucous membranes Eyes PERRL and EOMs intact bilaterally Eyes Narrative: No hyphema Neck Neck Narrative: C-collar in place there is no bony deformity or step-off of the cervical spine but there is mild midline pain with palpation Chest Wall palpation of chest normal Chest Narrative: No bony deformity or crepitance Resp normal respiratory effort and clear to auscultation bilaterally Resp Narrative: Breath sounds are diminished throughout but overall clear to auscultation with no signs of distress Cardio regular rate and regular rhythm Rate: other Other Details: Radial pulses are plus 2 out of 4 bilaterally are equal and symmetric GI normal to inspection, nondistended, normoactive bowel sounds, non-tender, non- distended and no masses GI Narrative: No voluntary guarding or rigidity no pulsatile mass Auscultation: normoactive bowel sounds Palpation: soft Back/Spine Back/Spine Narrative: No bony deformity or step-off of the thoracic or lumbar spine no midline pain with palpation Extremity normal to inspection Extremity Narrative: Pelvis is stable there is no shortening or external rotation of either lower extremity. Patient is able to lift both arms and legs without difficulty/pain Neuro oriented x3 and CN's II-XII intact bilaterally Sensorium / Orientation: alert Psych Psych Narrative: Patient has a depressed/flat affect Skin Skin Narrative: There is increased and there is the ecchymosis/hematoma to the left frontal portion of the scalp as documented above MDM MDM MDM Narrative Medical decision making narrative: Patient presented to the ER with reports of what sounds like a syncopal event most likely orthostatic in nature. On arrival vitals are stable she has no respiratory distress and she does have signs of trauma but no obvious depressed or basilar skull fracture changes or focal neurologic event. Based on her syncopal event and weakness as well as COVID exposure a basic work-up was obtained. Patient's white count is elevated but she just finished a prednisone taper and otherwise her COVID test is positive consistent with exposure but the remainder of the labs display no clinically significant findings. The patient's images of her head spine chest and pelvis revealed no acute traumatic changes. There is questionable lung mass but patient knows of this and is scheduled to have a CT scan in a few days to further differentiate what that lesion is and therefore I do not feel there is need for an emergent CT scan or further imaging studies this evening. The patient was ambulated and is able to walk with a steady gait and as she is not hypoxic or having signs of cardiac damage or acute kidney injury there is no need for admission and she can be discharged home. Lab Data Attestation: I reviewed the patient's lab results. Labs: Laboratory Results - last 24 hr 05/06/21 05/06/21 05/06/21 03:40 03:40 05:45 WBC 12.7 H RBC 4.24 Hgb 12.6 Hct 38.8 MCV 91.5 MCH 29.7 MCHC 32.5 RDW Std Deviation 46.4 H RDW Coeff of Corinne 13.7 Plt Count 237 MPV 10.2 Immature Gran % (Auto) 1.500 H Neut % (Auto) 52.7 Lymph % (Auto) 30.4 [place] % (Auto) 13.7 H Eos % (Auto) 1.4 Baso % (Auto) 0.3 Absolute Neuts (auto) 6.7 Absolute Lymphs (auto) 3.85 Nucleated RBC % 0 Diff Path Review May foll Sodium 138 Potassium 3.6 Chloride 104 Carbon Dioxide 26.0 Anion Gap 8 BUN 17 Creatinine 1.05 H Estim Creat Clear Calc 42.30 Est GFR (MDRD) Af Amer 66 Est GFR (MDRD) Non-Af 54 L BUN/Creatinine Ratio 16.2 Glucose 97 Calcium 8.6 Magnesium 2.2 Troponin I High Sens 8 Urine Color Yellow Urine Clarity Clear Urine pH 7.0 Ur Specific [place] 1.010 Urine Protein Negative Urine Glucose (UA) Normal Urine Ketones Negative Urine Occult Blood Negative Urine Nitrite Negative Urine Bilirubin Negative Urine Urobilinogen Normal Ur Leukocyte Esterase Negative Urine RBC 0 SEEN Urine WBC 0 SEEN Ur Squamous Epith Cells 0 SEEN Urine Bacteria 0 SEEN Urine Mucus 0 SEEN Radiography Diagnostic Testing: Clinical Impression(s) from Imaging Studies Brain CT 05/06/21 04:04 IMPRESSION: Left frontal scalp swelling with no calvarial fracture or acute intracranial abnormality. Chronic involutional and white matter changes. Individualized dose optimization techniques were used for this CT. at 0529 Reported and signed by: Yoan Pope MD Electronically Signed: Yoan Pope MD at 5:28 EST Tel , Service support , Cervical Spine CT 05/06/21 04:04 IMPRESSION: No evidence of acute cervical spinal injury. Individualized dose optimization techniques were used for this CT. at 0526 Reported and signed by: Yoan Pope MD Electronically Signed: Yoan Pope MD at 5:25 EST Tel , Service support , Chest X-Ray 05/06/21 04:50 IMPRESSION: Bibasilar linear scarring and/or atelectasis. Possible small patchy airspace opacity within left lower lung. Differential includes infiltrate/pneumonia, pulmonary contusion, scarring, small neoplasm. Recommend follow-up PA and lateral chest x-ray in a few weeks to reassess. at 0537 Reported and signed by: Yoan Pope MD Electronically Signed: Yoan Pope MD at 5:36 EST Tel , Service support , Pelvis X-Ray 05/06/21 04:50 IMPRESSION: No acute findings in the pelvis. Electronically Signed: Memo Ronquillo MD at 5:36 EST Tel , Service support , Discharge Plan Triage Chief Complaint: Syncope ED Provider: Edward Rainey Dx/Rx/DC Orders Clinical Impression: COVID-19, Syncope, Closed head injury Instructions: Coronavirus Disease 2019 (COVID-19): Caring for Yourself or Others, What Is Syncope? Prescriptions: No Action buspirone 5 MG tablet 5 mg PO DAILY PRN PRN (Reason: Anxiety) RF: 0 albuterol sulfate [ProAir HFA] 1 PUFF inhaler 1 - 2 puff inhalation Q4H PRN PRN (Reason: Wheezing) RF: 0 escitalopram oxalate [Lexapro] 5 MG tablet 5 mg PO DAILY RF: 0 famotidine 20 MG tablet 20 mg PO BID Qty: 30 RF: 0 Breo Ellipta 1 EACH blister with device 1 ea IH DAILY RF: 0 Primary Care Provider: Annetta Anderson NP Referrals: Annetta Anderson DIESEL SERVICE APPRENTICE, DIESEL SERVICE APPRENTICE-C [Primary Care Provider] - Activity Restrictions/Additional Instructions: Please turn to the hospital for your monoclonal antibody infusion as directed Disposition Disposition: Home, Self Care
[2021-05-06] MEDS: dexAMETHasone 10 MG/ML Vial IV (04:17)
[2021-05-06 04:26] LABS: Anion Gap 8 (5-15); BUN 17 mg/dL (7-18); BUN/Creat Ratio 16.2 RATIO (10-20); Calcium,Total 8.6 mg/dL (8.5-10.1); Chloride 104 mmol/L (98-107); Creatinine, Serum 1.05 mg/dL (0.55-1.02); EST Glomerular Filtration Rate 54 mL/min (>60); Est Glom Filt Rate - Afr Amer 66 mL/min (>60); Glucose 97 mg/dL (74-106); Magnesium 2.2 mg/dL (1.6-2.6); Potassium 3.6 mmol/L (3.5-5.1); Sodium Level 138 mmol/L (136-145); Troponin-I HS 8 pg/mL (3.0-54.0)
[2021-05-06] MEDS: Ondansetron 4 MG/2 ML Vial IV (04:29)
[2021-05-06 04:30] LABS: Differential Indicated SCAN CRITERIA MET
--- NOTE | 2021-05-06 04:50 | RAD_ITS ---
HISTORY: cough, syncope, status post fall EXAMINATION/TECHNIQUE: XR Chest 1 View AP view COMPARISON: AP chest x-ray from 03/24/21 FINDINGS: LINES/DEVICES: traffic monitor specialist leads. LUNGS: No pulmonary edema. Linear opacities within bilateral lower lungs. Small hazy patchy opacity within lateral lingular region and left lower lung. No sizable pleural effusion. No pneumothorax detected. MEDIASTINUM AND CARDIOVASCULAR STRUCTURES: Heart size within normal limits for imaging technique. Atherosclerotic calcifications along the aorta. BONES AND SOFT TISSUES: Skeletal degenerative changes. RAD/Chest 1 View (Portable) IMPRESSION: Bibasilar linear scarring and/or atelectasis. Possible small patchy airspace opacity within left lower lung. Differential includes infiltrate/pneumonia, pulmonary contusion, scarring, small neoplasm. Recommend follow-up PA and lateral chest x-ray in a few weeks to reassess. at 0537 Reported and signed by: Yoan Pope MD Electronically Signed: Yoan Pope MD at 5:36 EST Tel , Service support ,
--- NOTE | 2021-05-06 04:50 | RAD_ITS ---
EXAM: XR Pelvis, 1 or 2 Views CLINICAL INDICATION: 75 years old, Female; fall TECHNIQUE: Frontal view of the pelvis. This report was created using [employer] report generation technology. COMPARISON: None. FINDINGS: Bones/joints: Unremarkable. No displaced fracture. No destructive or sclerotic lesions. Note that overlapping bowel shadows may however obscure fine detail. Sacroiliac joints are unremarkable. No widening of the pubic symphysis. The articular structures are unremarkable. Soft tissues: Surgical clips left pelvis. No soft tissue swelling or gas. RAD/Pelvis 1 or 2 Views IMPRESSION: No acute findings in the pelvis. Electronically Signed: Memo Ronquillo MD at 5:36 EST Tel , Service support ,
[2021-05-06 05:01] VITALS: BP 124/57; PULSE 68; RESP 14; O2SAT 98
[2021-05-06 05:59] LABS: Bacteria 0 SEEN /hpf (None Seen); Mucous, Urine 0 SEEN /hpf (<or=2+); Red Blood Cells-Urine 0 SEEN /hpf (0-5); Squamous Epithelial Cells - UA 0 SEEN /hpf (5-10); White Blood Cells 0 SEEN /hpf (0-5)
[2021-05-06 06:07] LABS: Color, Urine Yellow (Yellow); Glucose, Dipstick Normal (Normal); Ketone-Dipstick Negative (Negative); Leukocyte Esterase-Dipstick Negative /ul (Negative); Nitrite-Dipstick Negative (Negative); Occult Blood-Urine Negative /ul (Negative); Protein-Dipstick Negative (Negative); Urine Bilirubin Dipstick Negative (Negative); Urine Clarity Clear (Clear); Urine Urobilinogen Normal (Normal)
[2021-05-06 06:19] VITALS: BP 110/56; PULSE 70; RESP 14; O2SAT 93
[2021-05-06 06:50] VITALS: BP 110/56; PULSE 70; RESP 14; O2SAT 96
[2021-05-06 13:09] LABS: Pathologist Review Reviewed
== END 2021-05-06 08:38 | disposition home or self-care (01) ==
PROVIDERS: Emergency Provider Emergency Medicine; PCP Nurse Practitioner; Visit Provider Emergency Medicine
DX: U07.1 COVID-19 (principal); R55 Syncope and collapse; S09.90XA Unspecified injury of head, initial encounter; F32.A Depression, unspecified; K21.9 Gastro-esophageal reflux disease without esophagitis; Z87.891 Personal history of nicotine dependence; X58.XXXA Exposure to other specified factors, initial encounter; Z79.899 Other long term (current) drug therapy
CPT/HCPCS: 70450; 71045; 72125; 72170; 80048; 81001; 83735; 84484; 85025; 87426; 93005; 96361; 96374; 96375; 99285; J7040; A4216; J2405

== ENCOUNTER 2021-05-14 09:23 | Outpatient (CLI) | payer MEDICARE, OTHER, SELFPAY ==
[2021-05-14 09:49] VITALS: BP 128/54; PULSE 71; RESP 16; TEMP 36.9; O2SAT 100; BMI 23.3
[2021-05-14] MEDS: 0.9% Saline Lock 10 ML Syringe IV (09:52)
[2021-05-14 10:24] VITALS: BP 125/50; PULSE 59; RESP 16; TEMP 37; O2SAT 100
[2021-05-14 11:20] VITALS: BP 114/52; PULSE 58; RESP 16; TEMP 36.9; O2SAT 99
== END 2021-05-14 23:59 | disposition home or self-care (01) ==
LOC: MS3OUT 09:23 → MS3 09:24
PROVIDERS: PCP Nurse Practitioner; Referring Provider Emergency Medicine; Visit Provider Emergency Medicine
DX: Z23 Encounter for immunization (principal); U07.1 COVID-19
CPT/HCPCS: J7050; M0245; Q0245; A4216

== ENCOUNTER 2021-05-16 15:10 | Outpatient (CLI) | payer MEDICARE, OTHER, SELFPAY ==
--- NOTE | 2021-05-16 15:18 | CT_ITS ---
STUDY: CT CHEST WITHOUT CONTRAST REASON FOR EXAM: Female, 75 years old. Pulmonary nodule RADIATION DOSAGE (If Supplied By Facility): CTDIvol = ( 7.14 ) mGy, DLP = ( 228.38 ) mGycm TECHNIQUE: Transaxial imaging was performed without the administration of intravenous contrast material. Multiplanar coronal and sagittal images were reformatted. Individualized dose optimization techniques were used for this CT. COMPARISON: 02/03/2021 FINDINGS: Lung windows show the lungs to be mildly hyperexpanded. Previously described linear atelectasis/scarring in the left lower lobe is unchanged. However, since the previous study, there is been development of multiple areas of air space opacifications in both lung anderson, predominantly in the periphery without evidence of effusions. These findings are suggestive of Covid pneumonia, but could also be seen with multifocal pneumonitis. Soft tissue windows show normal-appearing thyroid gland. No suspicious adenopathy. No pleural or pericardial effusions. There are punctate coronary artery calcifications. Bony structures show degenerative change. Limited cuts through the upper abdomen do not show a suspicious solid organ abnormality. CT/Chest without Contrast IMPRESSION: Stable atelectasis/fibrotic scarring in the left lung base. New scattered airspace opacifications predominately in the periphery of both lung anderson, differential as described above. No demonstrated effusions Calcified coronary vessels No suspicious adenopathy Degenerative bony changes Electronically Signed: Cortes Aguilar MD at 15:56 EST , Service support ,
--- NOTE | 2021-05-16 15:43 | BI_ITS ---
MAMMOGRAPHY - BILATERAL SCREENING REASON FOR EXAM: Female, 75 years old. Routine annual screening examination. PERTINENT HISTORY: Non-contributory. TECHNIQUE: Digital bilateral breast stephen (3D mammographic acquisition) in the CC and MLO projections. 2-D mediolateral oblique (MLO) and craniocaudad (CC) views of both breasts were obtained. CAD: Full Field Digital Mammography with Computer Added Detection was performed. COMPARISON: Comparison is made with prior study dated 03/09/2020 and 02/24/2019. FINDINGS: Breast Composition: There are scattered areas of fibroglandular density. There are no dominant masses or suspicious calcifications. No other significant abnormalities are identified. There has been no significant change since the prior study. BI/SCRN MAMM (CAD)W/STEPHEN BILAT IMPRESSION: Stable bilateral screening mammogram. Yearly follow-up mammogram recommended. (A) ASSESSMENT CATEGORY: BIRADS Category 1: Negative. A letter regarding these results will be sent to the patient by the facility within 30 days. Approximately 10% of breast cancers are not detected by mammography. A normal mammogram should not delay biopsy of a clinically suspicious abnormality. [id number] Electronically Signed: Ghassan Hercules MD at 20:32 EST , Service support ,
== END 2021-05-16 23:59 | disposition short-term general hospital (02) ==
LOC: CT 15:14
PROVIDERS: PCP Nurse Practitioner; Referring Provider Nurse Practitioner; Visit Provider Nurse Practitioner
DX: Z12.31 Encounter for screening mammogram for malignant neoplasm of breast (principal); R91.1 Solitary pulmonary nodule
CPT/HCPCS: 71250; 77063; 77067

== ENCOUNTER → 2021-08-15 | Outpatient (CLI) | payer MEDICARE, OTHER, SELFPAY ==
--- NOTE | 2021-08-15 11:49 | RAD_ITS ---
INDICATION: mild persistent asthma, cough variant asthma EXAMINATION/TECHNIQUE: X-RAY - XR Chest 2 Views COMPARISON: Chest radiograph from 05/06/2021, 03/24/2021. FINDINGS: LINES/DEVICES: None. Mildly hyperinflated lungs. Streaky perihilar opacities and peribronchial cuffing. No focal consolidations, sizable pleural effusion, or sizable pneumothorax. Heart size is normal. Stable multilevel degenerative changes with mild height loss of lower thoracic vertebral bodies. No acute findings in the bones or soft tissues. RAD/Chest PA and Lateral IMPRESSION: Findings suggestive of small airways disease. Otherwise, no focal consolidations, sizable pleural effusion, or sizable pneumothorax. Electronically Signed: Baljinder Alvarez, at 12:27 EDT ,
== END | disposition home or self-care (01) ==
PROVIDERS: Referring Provider Internal Medicine Pulmonary Disease; Visit Provider Internal Medicine Pulmonary Disease
DX: J45.30 Mild persistent asthma, uncomplicated (principal); J45.991 Cough variant asthma
CPT/HCPCS: 71046

== ENCOUNTER → 2021-10-07 | Outpatient (CLI) | payer MEDICARE, OTHER, SELFPAY ==
--- NOTE | 2021-10-07 | BON_PTH ---
PATIENT: TIFFANY URIBE LOC: [facility] U#:[id number] AGE/SX: 75/F ROOM: RE10/07/[address]: Dr. Fidel Ramos DO : 1945 BED: DIS: 10/07/2021 SPEC #: [id number] RECD: 10/07/21 14:59 STATUS: JOSE REFeng #: [id number] CECILE: 10/07/21 00:[address]: Fidel Ramos DEPT: SURGICAL PATHOLOGY RECD BY: Myke Carias ENTERED: 10/10/21 08:48 SP TYPE: Bone OTHR DR: No Primary Care Phys [facility] Tissues: Vertebra, NOS Procedures: Decalcification bone/plaque Surgery Specimen Level V HEADER OPERATION: L5 kyphoplasty PRE-OP DIAGNOSIS: Wedge compression fracture left T11-12, spinal stenosis lumbar region, deformity L5 vertebral body TISSUE SUBMITTED: L5 vertebral body MICROSCOPIC DIAGNOSIS L5 vertebral body, bone core biopsy: Consistent with organizing fracture site. AM:del 10/11/2021 MICROSCOPIC DESCRIPTION Slides are reviewed. GROSS DESCRIPTION Received in fixative is one container labeled with the patient's name and designated L5 vertebral body. The specimen consists of an elongated piece of bone measuring 1 cm in length and 0.2 cm in diameter. The specimen is totally submitted in one cassette after decalcification. / SJ:del TC:5 CPT: 09036, [id number]
== END | disposition home or self-care (01) ==
LOC: LABSPEC 15:19
PROVIDERS: Referring Provider Orthopaedic Surgery; Visit Provider Orthopaedic Surgery
DX: S22.080A Wedge compression fracture of T11-T12 vertebra, initial encounter for closed fracture (principal); M48.061 Spinal stenosis, lumbar region without neurogenic claudication
CPT/HCPCS: 88305; 88307; 88311

== ENCOUNTER 2021-10-28 15:11 | Emergency (ER) | payer MEDICARE, OTHER, SELFPAY ==
[2021-10-28 15:13] VITALS: BP 120/55; PULSE 73; RESP 18; TEMP 36.8; O2SAT 98; BMI 24.7
[2021-10-28 15:34] LABS: Bacteria 0 SEEN /hpf (None Seen); Mucous, Urine 0 SEEN /hpf (<or=2+); Red Blood Cells-Urine 0 SEEN /hpf (0-5); Squamous Epithelial Cells - UA 0 SEEN /hpf (5-10); White Blood Cells 0 SEEN /hpf (0-5)
[2021-10-28 15:42] LABS: Absolute Lymphocyte Count 3.69 X10^3/uL (0.83-4.51); Absolute Neutrophil Count 7.8 X10^3/uL (2.0-7.7); Basophil# 0.06 X10^3/uL; Basophil% 0.5 % (0-1); Eosinophil# 0.07 X10^3/uL; Eosinophils% 0.6 % (0-5); Hemoglobin 13.6 g/dL (12.0-15.0); Lymphocyte # 3.69 X10^3/ul (0.83-4.51); Lymphocyte % 29.1 % (19-41); Mean Corpuscular Hgb 31.2 pg (27.0-32.0); Mean Corpuscular Volume 91.7 fL (81-99); Mean Platelet Vol. 10.2 fl (6.2-12.0); Monocyte# 1.03 X10^3/uL; Monocyte% 8.1 % (0-10); NRBC Flagged by Analyzer 0 % (0-5); Neutrophil # 7.77 X10^3/uL (2.7-7.7); Neutrophil % 61.2 % (47-70); Platelet Count 266 K/mm3 (150-450); RBC Distribution Width CV 12.8 % (11.6-14.6); RBC Distribution Width SD 43.2 fl (35.1-43.9); Red Blood Count 4.36 M/mm3 (4.2-5.4); White Blood Count 12.7 K/mm3 (4.4-11.0)
[2021-10-28 15:46] LABS: Color, Urine Yellow (Yellow); Glucose, Dipstick Normal (Normal); Ketone-Dipstick Negative (Negative); Leukocyte Esterase-Dipstick Negative /ul (Negative); Nitrite-Dipstick Negative (Negative); Occult Blood-Urine Negative /ul (Negative); Protein-Dipstick Negative (Negative); Specific Gravity, Urine 1.005 (1.002-1.030); Urine Bilirubin Dipstick Negative (Negative); Urine Clarity Sl. Cloudy (Clear); Urine Urobilinogen Normal (Normal); Urine pH 6.5 (5.0 - 8.0)
[2021-10-28 15:52] LABS: Anion Gap 9 (5-15); BUN 16 mg/dL (7-18); Calcium,Total 9.5 mg/dL (8.5-10.1); Chloride 100 mmol/L (98-107); Creatinine, Serum 1.07 mg/dL (0.55-1.02); EST Glomerular Filtration Rate 53 mL/min (>60); Est Glom Filt Rate - Afr Amer 64 mL/min (>60); Estimated Creatinine Clearance 38.16 ml/min; Glucose 116 mg/dL (74-106); Potassium 3.8 mmol/L (3.5-5.1); Sodium Level 135 mmol/L (136-145)
--- NOTE | 2021-10-28 16:04 | CT_ITS ---
EXAM: CT ABDOMEN AND PELVIS WITH INTRAVENOUS CONTRAST CLINICAL INDICATION: lower abdominal pain, constipation TECHNIQUE: Helically acquired images were obtained of the abdomen and pelvis with intravenous contrast. This CT exam was performed using one or more of the following dose reduction techniques: automated exposure control, adjustment of the mA and/or kV according to patient size, and/or use of iterative reconstruction technique. This report was created using [employer] report generation technology. CONTRAST: IV 100mL [id number]-300 COMPARISON: 09/26/2016 FINDINGS: LOWER THORAX: Unremarkable. Lung bases are clear. No cardiomegaly. No significant pericardial effusion. ABDOMEN: LIVER: Unremarkable. Homogeneous. No focal mass. GALLBLADDER AND BILE DUCTS: Patient is status post cholecystectomy. No intra- or extrahepatic biliary ductal dilation. PANCREAS: Unremarkable. No focal cystic or solid mass. SPLEEN: Unremarkable. Normal size without focal cystic or solid mass. ADRENALS: Unremarkable. No nodules. KIDNEYS AND URETERS: There is a simple cyst in the right kidney. No follow-up imaging is necessary. Normal renal size and position. No hydronephrosis. STOMACH AND BOWEL: There is moderate stool in proximal colon may represent early constipation. No stomach or bowel distention. No focal inflammatory change. PELVIS: APPENDIX: No evidence of acute appendicitis. BLADDER: Unremarkable. REPRODUCTIVE: Unremarkable as visualized. No mass. ABDOMEN and PELVIS: INTRAPERITONEAL SPACE: There are surgical clips in the left hemipelvis. No ascites or other fluid collection. No free air. BONES/JOINTS: Unremarkable. No suspicious lytic or blastic abnormality. SOFT TISSUES: Unremarkable. No discrete abdominal or pelvic wall hernia. VASCULATURE: Unremarkable. Abdominal aorta is non-dilated. LYMPH NODES: Unremarkable. No enlarged lymph nodes. CT/Abdomen/Pelvis W IV Cont ONLY IMPRESSION: Moderate stool proximal colon which may represent early constipation. No other abnormalities are identified. Electronically Signed: Wayne Lawrence MD at 16:53 EDT ,
--- NOTE | 2021-10-28 16:05 | ED.VIS.GI ---
HPI HPI - GI History of Present Illness Chief Complaint: Abd Pain Narrative Narrative: 75-year-old female past medical history of diverticulosis/diverticulitis, depression and anxiety, presents with lower abdominal pain and constipation that she has had since Sunday. She states she usually has a bowel movement daily. Her symptoms began Sunday, 4 days ago, when she has not had a bowel movement and she is having pain that is dull and achy along with sharp and stabbing in the bilateral lower quadrants. She states that she feels bloated. She denies any prior past abdominal surgeries. She may be slightly nauseated but no vomiting. She states she is belching more. She has tried laxatives and suppositories. She states suppositories usually work for her, but she has not had a bowel movement. Her primary care physician wrote her for Shelley. She was taking tramadol which she thinks constipated her more. She presents via EMS because of the continued lower quadrant abdominal pain and constipation. [facility] Medical History Asthma GERD (gastroesophageal reflux disease) Nodule of middle lobe of right lung PVD (peripheral vascular disease) Home Medications albuterol sulfate 90 mcg/actuation aerosol inhaler (ProAir HFA) 1 - 2 puff inhalation Q4H PRN PRN Wheezing 09/09/13 [History Last Taken 11/04/14 08:00 1 PUFF] buspirone 5 mg tablet 5 mg PO DAILY PRN PRN Anxiety 09/09/13 [History Last Taken 11/04/14 17:00 5 MG] escitalopram oxalate 5 mg tablet (Lexapro) 5 mg PO DAILY 04/22/15 [History Last Taken Unknown] famotidine 20 mg tablet 20 mg PO BID #30 tabs 09/30/16 [Rx Last Taken Unknown] fluticasone furoate 100 mcg-vilanterol 25 mcg/dose inhalation powder (Breo Ellipta) 1 ea IH DAILY 08/03/17 [History Last Taken Unknown] Allergy/AdvReac Type Severity Reaction Status Date / Time lansoprazole [From Prevacid] Allergy Swelling Verified 10/28/21 15:15 Surgical History History of cholecystectomy Social History Smoking Status: Former smoker substance use type: does not use ROS ROS ED ROS Narrative Constitutional: No fever, no chills. HEENT: No sore throat. No neck pain. No loss of vision. No rhinorrhea. Cardiovascular: No chest pain. No palpitations. No pedal edema. Respiratory: No cough, no shortness of breath. Abdominal: Bilateral lower quadrant abdominal pain. Mild nausea. No vomiting. Belching more. Constipation. Abdominal bloating. Genitourinary: No dysuria. No hematuria. Musculoskeletal: No myalgias. No arthralgias. Neurologic: No headaches. No dizziness. No lightheadedness. Skin: No rash. No change in color. Psychiatric: History of depression. None currently. No anxiety. EXAM Physical Exam Narrative Exam Narrative: Afebrile. Vital signs noted. HEENT: Normocephalic. Atraumatic. PERRL, EOMI. Neck soft and supple. No point tenderness or step off. Cardiovascular: Regular rate and rhythm. No murmurs, rubs, or gallops appreciated. Respiratory: No tachypnea. Lungs clear to auscultation bilaterally. Gastrointestinal: Abdomen soft, with mild tenderness to palpation bilateral lower quadrants with normoactive bowel sounds. No rebound or guarding. Neurological: Awake. Alert. Nonfocal, nonlateralizing. Skin: No rash. Normal color. No pallor. Musculoskeletal: No pedal edema. Full range of motion extremities. Const Vital Signs: 10/28/21 15:13 Temperature 98.3 F Temperature Source Temporal Pulse Rate 73 Respiratory Rate 18 Blood Pressure 120/55 L Blood Pressure Mean 76 Pulse Ox 98 Oxygen Delivery Method Room Air MDM MDM MDM Narrative Medical decision making narrative: Nursing protocol started in triage. She has slightly elevated white count of 12.7, but this appears to be her baseline leukocytosis. Hemoglobin normal at 13.6 with hematocrit normal at 40. Platelet count normal at 266. BMP shows sodium of 135 and a creatinine of 1.07. Urinalysis is negative for infection or ketones. With suspicion of diverticulitis, CT of the abdomen pelvis with IV contrast will be obtained. She was also bolused normal saline 1 L intravenously. CBC shows elevated white count of 12.7 which I think is nonspecific and appears to have been elevated in the past at 12.7 and 11. Hemoglobin stable at 13.6. Sodium slightly low at 135, creatinine of 1.07 with a BUN of 16. Urinalysis negative for ketones or infection even on microanalysis. CT of the abdomen and pelvis shows a moderate amount of stool in the proximal colon but no evidence of inflammatory change. At this point in time, I do feel that she can be discharged safely home. She was told to take meae-zxb-cwnbiph MiraLAX as needed for her constipation. I do not want her to be written for Bentyl or anything that would slow down her transit of stool as she is already having constipation. Return instructions to the emergency department were reviewed. Disposition is discharged home in stable condition. Lab Data Attestation: I reviewed the patient's lab results. Labs: Laboratory Results - last 24 hr 10/28/21 10/28/21 10/28/21 12:52 15:05 15:05 WBC 12.7 H RBC 4.36 Hgb 13.6 Hct 40.0 MCV 91.7 MCH 31.2 MCHC 34.0 RDW Std Deviation 43.2 RDW Coeff of Corinne 12.8 Plt Count 266 MPV 10.2 Immature Gran % (Auto) 0.500 Neut % (Auto) 61.2 Lymph % (Auto) 29.1 [place] % (Auto) 8.1 Eos % (Auto) 0.6 Baso % (Auto) 0.5 Absolute Neuts (auto) 7.8 H Absolute Lymphs (auto) 3.69 Nucleated RBC % 0 Sodium 135 L Potassium 3.8 Chloride 100 Carbon Dioxide 26.0 Anion Gap 9 BUN 16 Creatinine 1.07 H Estim Creat Clear Calc 38.16 Est GFR (MDRD) Af Amer 64 Est GFR (MDRD) Non-Af 53 L BUN/Creatinine Ratio 15.0 Glucose 116 H Calcium 9.5 Urine Color Yellow Urine Clarity Sl. Cloudy Urine pH 6.5 Ur Specific [place] 1.005 Urine Protein Negative Urine Glucose (UA) Normal Urine Ketones Negative Urine Occult Blood Negative Urine Nitrite Negative Urine Bilirubin Negative Urine Urobilinogen Normal Ur Leukocyte Esterase Negative Urine RBC 0 SEEN Urine WBC 0 SEEN Ur Squamous Epith Cells 0 SEEN Urine Bacteria 0 SEEN Urine Mucus 0 SEEN Radiography Diagnostic Testing: Clinical Impression(s) from Imaging Studies Abdomen/Pelvis CT 10/28/21 16:04 IMPRESSION: Moderate stool proximal colon which may represent early constipation. No other abnormalities are identified. Electronically Signed: Wayne Lawrence MD at 16:53 EDT , Discharge Plan Triage Chief Complaint: Abd Pain ED Provider: Enrique Carreon Dx/Rx/DC Orders Clinical Impression: Constipation, Abdominal pain Instructions: ED Abdominal Pain Unkn Cause Fem, ED Constipation (Adult) Prescriptions: No Action buspirone 5 MG tablet 5 mg PO DAILY PRN PRN (Reason: Anxiety) Label Comments: depression albuterol sulfate [ProAir HFA] 1 PUFF inhaler 1 - 2 puff inhalation Q4H PRN PRN (Reason: Wheezing) Label Comments: breathing escitalopram oxalate [Lexapro] 5 MG tablet 5 mg PO DAILY Label Comments: mental health famotidine 20 MG tablet 20 mg PO BID Qty: 30 0RF Label Comments: acid reflux Breo Ellipta 1 EACH blister with device 1 ea IH DAILY Primary Care Provider: Elma White Referrals: Care Physician,No Primary [NON-STAFF] - Activity Restrictions/Additional Instructions: Your CT scan shows a moderate stool burden and early constipation. Take MiraLAX as directed as a gentle laxative. Follow-up with your primary care physician as soon as possible. Disposition Disposition: Home, Self Care
[2021-10-28] MEDS: 0.9% Normal Saline 1,000 ML 1000 ML IV (16:35)
[2021-10-28 17:56] VITALS: BP 141/74; PULSE 71; RESP 16; O2SAT 98
== END 2021-10-28 17:58 | disposition home or self-care (01) ==
PROVIDERS: Emergency Provider Emergency Medicine; PCP Nurse Practitioner Family; Visit Provider Emergency Medicine
DX: K59.00 Constipation, unspecified (principal); I73.9 Peripheral vascular disease, unspecified; F41.9 Anxiety disorder, unspecified; Z87.891 Personal history of nicotine dependence; J45.909 Unspecified asthma, uncomplicated; Z79.899 Other long term (current) drug therapy; K21.9 Gastro-esophageal reflux disease without esophagitis; Z87.19 Personal history of other diseases of the digestive system; F32.A Depression, unspecified
CPT/HCPCS: 74177; 80048; 81001; 85025; 96360; 99285; J7030; Q9967

== ENCOUNTER 2021-10-30 13:31 | Emergency (ER) | payer MEDICARE, OTHER, SELFPAY ==
[2021-10-30 13:32] VITALS: BP 130/57; PULSE 71; RESP 16; TEMP 36.8; O2SAT 99; BMI 24.5
--- NOTE | 2021-10-30 13:46 | RAD_ITS ---
STUDY: XR Abdomen 1 View 10/30/2021 1:52 PM REASON FOR EXAM: Female, 76 years old. ABDOMINAL PAIN constipation TECHNIQUE: XR Abdomen 1 View COMPARISON: CT done [address] chest of 05/16/2021 FINDINGS: Kyphoplasty changes at L5. Stable compression deformity of L5, L4, L3, L2, T11 and T12. However, these deformities are new since the prior CT chest. There is an unremarkable bowel gas pattern. There is no demonstrated free abdominal air. The visualized liver, spleen and kidneys are grossly normal in size and morphology. Normal soft tissue structures. Normal visualized osseous structures. RAD/Abdomen Single View IMPRESSION: There are no acute findings. Stable compression deformity of L5, L4, L3, L2, T11 and T12. However, these deformities are new since the prior CT chest. Electronically Signed: Connor Gifford MD at 14:22 EDT ,
[2021-10-30] MEDS: Ondansetron ODT 4 MG Tablet PO (14:10)
[2021-10-30 14:29] VITALS: RESP 16
--- NOTE | 2021-10-30 14:29 | EX.ED.DYSGE1 ---
HPI History of Present Illness Chief Complaint: Constipation Informant: patient and spouse/S.O. Narrative Narrative: 76-year-old female presenting to the emergency department with constipation. Patient states her last bowel movement was Sunday. She has tried numerous wryq-atw-btytjtn medicines including Colace MiraLAX a bottle of mag citrate enemas and suppositories and nothing has seemed to work. She was seen in the emergency department on Sunday night had a CT scan that showed that most of her stool was in the proximal bowel. She states that she is still having flatus. Her notes that he hears her stomach gurgling. No fevers. The patient recently underwent kyphoplasty. She was taking tramadol but is no longer. 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 PVD (peripheral vascular disease) Home Medications albuterol sulfate 90 mcg/actuation aerosol inhaler (ProAir HFA) 1 - 2 puff inhalation Q4H PRN PRN Wheezing 09/09/13 [History Last Taken 11/04/14 08:00 1 PUFF] buspirone 5 mg tablet 5 mg PO DAILY PRN PRN Anxiety 09/09/13 [History Last Taken 11/04/14 17:00 5 MG] escitalopram oxalate 5 mg tablet (Lexapro) 5 mg PO DAILY 04/22/15 [History Last Taken Unknown] famotidine 20 mg tablet 20 mg PO BID #30 tabs 09/30/16 [Rx Last Taken Unknown] fluticasone furoate 100 mcg-vilanterol 25 mcg/dose inhalation powder (Breo Ellipta) 1 ea IH DAILY 08/03/17 [History Last Taken Unknown] Allergy/AdvReac Type Severity Reaction Status Date / Time lansoprazole [From Prevacid] Allergy Swelling Verified 10/30/21 13:31 Surgical History History of cholecystectomy Social History Smoking Status: Former smoker substance use type: does not use ROS ROS ED Constitutional Constitutional ED: Denies chills or weight loss Eyes Eyes: Denies change in vision or diplopia ENT ENT ED: Denies ear pain, rhinorrhea or sore throat Cardiovascular Cardiovascular: Denies chest pain, orthopnea, palpitations or racing heartbeat Respiratory/Chest Respiratory/Chest: Denies cough, dyspnea or orthopnea Gastrointestinal Gastrointestinal: Reports constipation; Denies abdominal pain, diarrhea, nausea or vomiting Genitourinary Genitourinary ED: Denies dysuria, hematuria or urinary frequency Musculoskeletal Musculoskeletal: Denies arthralgias or myalgias Integumentary Denies abscess or rash Neurologic Neurologic: Denies headache(s) or weakness Psychiatric Psychiatric: Denies anxiety, depression, suicidal ideation or suicidal thoughts Endocrine Endocrinology: Denies polydipsia, polyphagia or polyuria Allergic/Immunologic Allergic/Immunologic ED: Denies mouth swelling, tongue swelling or urticaria EXAM Physical Exam Const Vital Signs: 10/30/21 13:32 Temperature 98.2 F Temperature Source Temporal Pulse Rate 71 Respiratory Rate 16 Blood Pressure 130/57 H Blood Pressure Mean 81 Pulse Ox 99 Oxygen Delivery Method Room Air Positive well nourished and well developed General Appearance ED: well developed HEENT Reports normocephalic, head/scalp atraumatic and moist mucous membranes Eyes PERRL and EOMs intact bilaterally Neck no lymphadenopathy, supple and no JVD Resp normal respiratory effort and clear to auscultation bilaterally Cardio regular rate, regular rhythm and no murmurs GI GI Narrative: Diffuse tenderness to palpation. The abdomen feels mildly distended. Normal active bowel sounds. Inspection: abdominal distention Auscultation: normoactive bowel sounds Palpation: soft Back/Spine no CVA tenderness and normal ROM Extremity normal to inspection General Extremety ED: Negative for edema General Extremity: Negative for edema Neuro oriented x3 and CN's II-XII intact bilaterally Sensorium / Orientation: alert Motor Exam: strength 5/5 throughout Psych mental status grossly normal Mood & Affect: Negative for depressed or tearful Skin no rashes or lesions noted and no wounds MDM MDM MDM Narrative Medical decision making narrative: My impression of the KUB is nonobstructive gas pattern. Moderate stool in the left descending colon. Patient took 1 bottle of magnesium citrate today and came in. I recommend that she drink another bottle and possibly a third bottle tomorrow she still has not yet gone. We talked about massage walking water intake and heat. Return if worsening or concerns Radiography Diagnostic Testing: Clinical Impression(s) from Imaging Studies KUB X-Ray 10/30/21 13:46 IMPRESSION: There are no acute findings. Stable compression deformity of L5, L4, L3, L2, T11 and T12. However, these deformities are new since the prior CT chest. Electronically Signed: Connor Gifford MD at 14:22 EDT Reading Location ID and State: [facility] / [place] , Service support , Discharge Plan Triage Chief Complaint: Constipation ED Provider: Ludwig Hodges Dx/Rx/DC Orders Prescriptions: No Action buspirone 5 MG tablet 5 mg PO DAILY PRN PRN (Reason: Anxiety) Label Comments: depression albuterol sulfate [ProAir HFA] 1 PUFF inhaler 1 - 2 puff inhalation Q4H PRN PRN (Reason: Wheezing) Label Comments: breathing escitalopram oxalate [Lexapro] 5 MG tablet 5 mg PO DAILY Label Comments: mental health famotidine 20 MG tablet 20 mg PO BID Qty: 30 0RF Label Comments: acid reflux Breo Ellipta 1 EACH blister with device 1 ea IH DAILY Primary Care Provider: Elma White Referrals: Elma White, [employer] [Primary Care Provider] -
== END 2021-10-30 14:40 | disposition home or self-care (01) ==
PROVIDERS: Emergency Provider Emergency Medicine; PCP Nurse Practitioner Family; Visit Provider Emergency Medicine
DX: K59.00 Constipation, unspecified (principal); I73.9 Peripheral vascular disease, unspecified; Z87.891 Personal history of nicotine dependence; K21.9 Gastro-esophageal reflux disease without esophagitis; J45.909 Unspecified asthma, uncomplicated; Z79.899 Other long term (current) drug therapy
CPT/HCPCS: 74018; 99283

== ENCOUNTER 2021-12-01 19:23 | Emergency (ER) | payer MEDICARE, OTHER, SELFPAY ==
[2021-12-01 19:23] VITALS: BP 108/79; PULSE 83; RESP 15; TEMP 37.9; O2SAT 96; BMI 23.9
--- NOTE | 2021-12-01 19:39 | EX.ED.DYSGE1 ---
HPI History of Present Illness Chief Complaint: Cold Sx Informant: patient Onset/Context/Timing Onset: Days Context: Gradual Onset Current Severity: Moderate Maximum Severity: Moderate Narrative Narrative: Patient presents secondary to URI symptoms and fever. She states that Sunday, Sunday, and Sunday of this week she had mild URI symptoms. Last evening, Sunday evening, patient had worsening of her symptoms. Today she is had significant congestion with mild cough productive of clear sputum. T-max is 102. She called her ENT to be evaluated and they told her she needed a COVID test before they would see her. 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 PVD (peripheral vascular disease) Home Medications albuterol sulfate 90 mcg/actuation aerosol inhaler (ProAir HFA) 1 - 2 puff inhalation Q4H PRN PRN Wheezing 09/09/13 [History Last Taken 11/04/14 08:00 1 PUFF] buspirone 5 mg tablet 5 mg PO DAILY PRN PRN Anxiety 09/09/13 [History Last Taken 11/04/14 17:00 5 MG] escitalopram oxalate 5 mg tablet (Lexapro) 5 mg PO DAILY 04/22/15 [History Last Taken Unknown] famotidine 20 mg tablet 20 mg PO BID #30 tabs 09/30/16 [Rx Last Taken Unknown] fluticasone furoate 100 mcg-vilanterol 25 mcg/dose inhalation powder (Breo Ellipta) 1 ea IH DAILY 08/03/17 [History Last Taken Unknown] nirmatrelvir 300 mg (150 mg x2)-ritonavir 100 mg tablet,dose pack(EUA) (Paxlovid) See Rx Instructions PO .COMPLEX #30 tabs 12/01/21 [Rx Last Taken Unknown] Allergy/AdvReac Type Severity Reaction Status Date / Time lansoprazole [From Prevacid] Allergy Swelling Verified 10/30/21 13:31 Surgical History History of cholecystectomy Social History Smoking Status: Former smoker substance use type: does not use ROS ROS ED Constitutional Constitutional ED: Reports fever(s); Denies chills Eyes Eyes: Denies change in vision or discharge from eye(s) ENT ENT ED: Denies discharge from eye(s), rhinorrhea or sore throat Cardiovascular Cardiovascular: Denies chest pain or palpitations Respiratory/Chest Respiratory/Chest: Denies cough or dyspnea Gastrointestinal Gastrointestinal: Denies abdominal pain, diarrhea, nausea or vomiting Genitourinary Genitourinary ED: Denies difficulty urinating or dysuria Musculoskeletal Musculoskeletal: Reports myalgias; Denies back pain or extremity pain Integumentary Denies Abrasions or rash Neurologic Neurologic: Denies headache(s) or weakness Psychiatric Psychiatric: Denies anxiety or depression Allergic/Immunologic Allergic/Immunologic ED: Denies lip swelling or urticaria EXAM Physical Exam Const Vital Signs: 12/01/21 19:23 12/01/21 19:44 Temperature 100.3 F H Temperature Source Temporal Pulse Rate 83 Respiratory Rate 15 Respiratory Effort Normal Non-Labored Respiratory Pattern Normal Blood Pressure 108/79 Blood Pressure Mean 88 Pulse Ox 96 Oxygen Delivery Method Room Air Positive well nourished and well developed General Appearance ED: well developed HEENT Reports normocephalic and head/scalp atraumatic Eyes PERRL and EOMs intact bilaterally Neck supple Chest Wall inspection of chest normal and palpation of chest normal Resp normal respiratory effort and clear to auscultation bilaterally Cardio regular rate and regular rhythm GI normal to inspection, nondistended, normoactive bowel sounds Palpation: soft Extremity normal to inspection Neuro oriented x3 and no sensory deficits noted Sensorium / Orientation: alert Motor Exam: strength 5/5 throughout Psych mental status grossly normal Skin no rashes or lesions noted MDM MDM MDM Narrative Medical decision making narrative: Patient given Tylenol. Chest x-ray obtained along with lab work and swab for COVID/influenza. Lab Data Attestation: I reviewed the patient's lab results. Labs: Laboratory Results - last 24 hr 12/01/21 12/01/21 19:45 19:45 WBC 11.7 H RBC 4.32 Hgb 13.2 Hct 40.4 MCV 93.5 MCH 30.6 MCHC 32.7 RDW Std Deviation 44.0 H RDW Coeff of Corinne 12.8 Plt Count 232 MPV 9.5 Immature Gran % (Auto) 0.500 Neut % (Auto) 72.8 H Lymph % (Auto) 13.5 L [place] % (Auto) 11.8 H Eos % (Auto) 1.0 Baso % (Auto) 0.4 Absolute Neuts (auto) 8.5 H Absolute Lymphs (auto) 1.58 Nucleated RBC % 0 Sodium 140 Potassium 3.8 Chloride 107 Carbon Dioxide 27.0 Anion Gap 6 BUN 17 Creatinine 0.94 Estim Creat Clear Calc 42.78 Est GFR (MDRD) Af Amer 75 Est GFR (MDRD) Non-Af 62 BUN/Creatinine Ratio 18.1 Glucose 127 H Calcium 8.9 Influenza: Negative COVID: Positive Radiography Chest X-Ray - ED: 1 View, Read by ED Physician and - (Questional lower lobe infiltrate versus scar tissue.) Diagnostic Testing: Clinical Impression(s) from Imaging Studies Chest X-Ray 12/01/21 19:50 IMPRESSION: 1. Left lower lobe linear opacities most likely representing pneumonia with similar appearance compared with 10/28/2021. Pneumonia cannot be completely excluded. Follow-up imaging to document resolution is recommended. Electronically Signed: Ryan Espinoza DO at 20:22 EDT , Treatment and Re-Evaluation Narrative: On repeat evaluation patient resting comfortably. Test results discussed with her. Lab work reveals a mild leukocytosis of 11.7 with no left shift. Chemistry studies unremarkable. COVID test is positive. Chest x-ray reveals lower lobe linear opacities which may represent pneumonia, however this is similar in appearance compared to 1 month ago. At the patient does have a mild pneumonia here this is likely viral. With the fact that it is not changed over the last month this may be scar tissue from her last round of COVID. Patient will be written for Paxlovid. Return instructions provided. She has a pulse ox monitor at home to watch her oxygen levels. Discharge Plan Triage Chief Complaint: Cold Sx ED Provider: Jamila Torres Dx/Rx/DC Orders Clinical Impression: COVID-19 Instructions: Coronavirus Disease 2019 (COVID-19): Overview, Coronavirus Disease 2019 (COVID-19): Caring for Yourself or Others Prescriptions: New Paxlovid (EUA) 300 mg (150 mg x 2)-100 mg tablets,dose pack See Rx Instructions .ROUTE .COMPLEX Qty: 30 0RF Rx Instructions: take TWO 150 mg tablets of nirmatrelvir with ONE 100 mg tablet of ritonavir twice daily for 5 days No Action buspirone 5 MG tablet 5 mg PO DAILY PRN PRN (Reason: Anxiety) Label Comments: depression albuterol sulfate [ProAir HFA] 1 PUFF inhaler 1 - 2 puff inhalation Q4H PRN PRN (Reason: Wheezing) Label Comments: breathing escitalopram oxalate [Lexapro] 5 MG tablet 5 mg PO DAILY Label Comments: mental health famotidine 20 MG tablet 20 mg PO BID Qty: 30 0RF Label Comments: acid reflux fluticasone furoate-vilanterol [Breo Ellipta] 1 EACH blister with device 1 ea IH DAILY Primary Care Provider: Elma White Referrals: Elma White, [employer] [Primary Care Provider] - 1-2 Weeks Disposition Disposition: Home, Self Care
[2021-12-01] MEDS: Acetaminophen 500 MG Tablet 1000 MG PO (19:47)
--- NOTE | 2021-12-01 19:50 | RAD_ITS ---
INDICATION: cough,fever EXAMINATION/TECHNIQUE: X-RAY - XR Chest 1 View COMPARISON: CT abdomen and pelvis 11/09/2021. FINDINGS: LINES/DEVICES: None. LUNGS: Symmetric normal lung volumes. Linear opacity left lung base appears similar to comparison CT abdomen and most likely representing atelectasis however airspace-filling process such as pneumonia is not completely excluded. Recommend follow-up following treatment to ensure resolution. No nodule or mass. No pleural effusion or pneumothorax. MEDIASTINUM AND CARDIOVASCULAR STRUCTURES: Normal size and contour of the cardiomediastinal silhouette. No evidence of pulmonary vascular congestion. BONES AND SOFT TISSUES: No fracture or focal osseous lesion. RAD/Chest 1 View (Portable) IMPRESSION: 1. Left lower lobe linear opacities most likely representing pneumonia with similar appearance compared with 10/28/2021. Pneumonia cannot be completely excluded. Follow-up imaging to document resolution is recommended. Electronically Signed: Ryan Espinoza DO at 20:22 EDT ,
[2021-12-01 19:58] LABS: Absolute Lymphocyte Count 1.58 X10^3/uL (0.83-4.51); Absolute Neutrophil Count 8.5 X10^3/uL (2.0-7.7); Basophil# 0.05 X10^3/uL; Basophil% 0.4 % (0-1); Eosinophil# 0.12 X10^3/uL; Hematocrit 40.4 % (37-47); Hemoglobin 13.2 g/dL (12.0-15.0); Lymphocyte # 1.58 X10^3/ul (0.83-4.51); Lymphocyte % 13.5 % (19-41); Mean Corp Hgb Conc 32.7 g/dL (32-36); Mean Corpuscular Hgb 30.6 pg (27.0-32.0); Mean Corpuscular Volume 93.5 fL (81-99); Mean Platelet Vol. 9.5 fl (6.2-12.0); Monocyte# 1.38 X10^3/uL; Monocyte% 11.8 % (0-10); NRBC Flagged by Analyzer 0 % (0-5); Neutrophil # 8.54 X10^3/uL (2.7-7.7); Neutrophil % 72.8 % (47-70); Platelet Count 232 K/mm3 (150-450); RBC Distribution Width CV 12.8 % (11.6-14.6); Red Blood Count 4.32 M/mm3 (4.2-5.4); White Blood Count 11.7 K/mm3 (4.4-11.0)
[2021-12-01 20:12] LABS: Anion Gap 6 (5-15); BUN 17 mg/dL (7-18); BUN/Creat Ratio 18.1 RATIO (10-20); Calcium,Total 8.9 mg/dL (8.5-10.1); Chloride 107 mmol/L (98-107); Creatinine, Serum 0.94 mg/dL (0.55-1.02); EST Glomerular Filtration Rate 62 mL/min (>60); Est Glom Filt Rate - Afr Amer 75 mL/min (>60); Estimated Creatinine Clearance 42.78 ml/min; Glucose 127 mg/dL (74-106); Potassium 3.8 mmol/L (3.5-5.1); Sodium Level 140 mmol/L (136-145)
[2021-12-01 20:42] VITALS: PULSE 99; RESP 15; O2SAT 97
== END 2021-12-01 20:43 | disposition home or self-care (01) ==
PROVIDERS: Emergency Provider Emergency Medicine; PCP Nurse Practitioner Family; Visit Provider Emergency Medicine
DX: U07.1 COVID-19 (principal); I73.9 Peripheral vascular disease, unspecified; Z87.891 Personal history of nicotine dependence; J45.909 Unspecified asthma, uncomplicated; K21.9 Gastro-esophageal reflux disease without esophagitis; Z79.899 Other long term (current) drug therapy
CPT/HCPCS: 71045; 80048; 85025; 87428; 99283; A4216

== ENCOUNTER 2022-03-01 13:19 | Emergency (ER) | payer MEDICARE, OTHER, SELFPAY ==
[2022-03-01] VITALS (7 sets, daily range): BP systolic 115–141; BP diastolic 72–79; PULSE 63–78; RESP 14–17; TEMP 37.2; O2SAT 96–99; BMI 24.7
--- NOTE | 2022-03-01 14:39 | EKG12_ITS ---
Test Reason : CP Blood Pressure : / mmHG Vent. Rate : 071 BPM Atrial Rate : 071 BPM P-R Int : 154 ms QRS Dur : 076 ms QT Int : 380 ms P-R-T Axes : 069 002 029 degrees QTc Int : 412 ms Normal sinus rhythm Normal ECG Confirmed by LUIS ALBERTO WARD, BRENDAN ([id number]), pictures editor NINA SAMPSON ([id number]) on 03/07/2022 9:31:40 A M Referred By: MADISON Confirmed By:ALEXANDER SAHU MD
--- NOTE | 2022-03-01 14:41 | RAD_ITS ---
STUDY: X-RAY CHEST REASON FOR EXAM: Female, 76 years old. Chest pain TECHNIQUE: Single AP portable view of the chest. COMPARISON: Comparison is made with prior study 12/01/2021. FINDINGS: EKG electrodes are seen. Hyperinflation. Persistent increased markings at the lung bases worse at the left lung base suggestive of a scarring and/or atelectasis. There is no demonstrated pleural abnormality. Normal size heart. Normal mediastinum and leif. Normal visualized pulmonary arteries. There is atherosclerotic tortuosity of the aortic arch and descending thoracic aorta. There are diffuse degenerative changes of the visualized thoracic spine. Normal visualized ribs, clavicles, and shoulders. There is no demonstrated abnormality of the visualized soft tissue structures of the upper abdomen. RAD/Chest 1 View (Portable) IMPRESSION: Persistent increased markings at the lung bases worse at the left lung base suggestive of bibasilar atelectasis. Electronically Signed: Ghassan Hercules MD at 15:02 EST ,
[2022-03-01 14:51] LABS: Absolute Lymphocyte Count 3.84 X10^3/uL (0.83-4.51); Absolute Neutrophil Count 6.2 X10^3/uL (2.0-7.7); Basophil# 0.04 X10^3/uL; Basophil% 0.3 % (0-1); Eosinophil# 0.14 X10^3/uL; Eosinophils% 1.2 % (0-5); Hemoglobin 13.4 g/dL (12.0-15.0); Lymphocyte # 3.84 X10^3/ul (0.83-4.51); Lymphocyte % 33.6 % (19-41); Mean Corp Hgb Conc 31.9 g/dL (32-36); Mean Corpuscular Hgb 29.8 pg (27.0-32.0); Mean Corpuscular Volume 93.5 fL (81-99); Mean Platelet Vol. 10.5 fl (6.2-12.0); Monocyte# 1.17 X10^3/uL; Monocyte% 10.2 % (0-10); NRBC Flagged by Analyzer 0 % (0-5); Neutrophil # 6.19 X10^3/uL (2.7-7.7); Neutrophil % 54.3 % (47-70); Platelet Count 310 K/mm3 (150-450); RBC Distribution Width CV 13.2 % (11.6-14.6); RBC Distribution Width SD 45.4 fl (35.1-43.9); Red Blood Count 4.49 M/mm3 (4.2-5.4); White Blood Count 11.4 K/mm3 (4.4-11.0)
--- NOTE | 2022-03-01 15:01 | EDS_ITS ---
HPI History of Present Illness Chief Complaint: Chest Pain Detail of Chief Complaint: Bilateral rib cage pain wrapping around and radiating to the front. Informant: patient Onset/Context/Timing Onset: Days Activity at onset: gradual Timing: Continuous Quality: Positive for Aching and Pain; Negative for Indigestion, Pressure, Sharp, Stabbing or Tightness Location: Right Chest and Left Chest Current Severity: Mild Maximum Severity: Mild Worsened By: Movement of Arm and Movement of Torso; Not Worsened By Nothing, Exertion, Eating, Palpation, Breathing or Coughing Relieved By: Remaining Still Associated Symptoms: Negative for Nausea, Vomiting, Diaphoresis, Dyspnea, Cough, Fever, Lightheadedness, Acid Reflux or Palpitations Narrative Narrative: 76-year-old female history of prior TIA, osteoporosis, compression fracture movement, asthma. No history of DVT or PE risk factors. States on Sunday morning she awoke and noticed that she had pain radiating from both red lateral rib cages into the front of her chest. It comes and goes. It is worse with movement or movement of her arms. She denies being short of breath. No radiation to her neck or jaw. No nausea or diaphoresis. Its not exertional. She denies any falls or trauma. No hemoptysis. No leg pain or swelling. 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 PVD (peripheral vascular disease) Home Medications albuterol sulfate 90 mcg/actuation aerosol inhaler (ProAir HFA) 1 - 2 puff inhalation Q4H PRN PRN Wheezing 09/09/13 [History Last Taken 11/04/14 08:00 1 PUFF] buspirone 5 mg tablet 5 mg PO DAILY PRN PRN Anxiety 09/09/13 [History Last Taken 11/04/14 17:00 5 MG] escitalopram oxalate 5 mg tablet (Lexapro) 5 mg PO DAILY 04/22/15 [History Last Taken Unknown] famotidine 20 mg tablet 20 mg PO BID #30 tabs 09/30/16 [Rx Last Taken Unknown] fluticasone furoate 100 mcg-vilanterol 25 mcg/dose inhalation powder (Breo Ellipta) 1 ea IH DAILY 08/03/17 [History Last Taken Unknown] nirmatrelvir 300 mg (150 mg x2)-ritonavir 100 mg tablet,dose pack(EUA) (Paxlovid) See Rx Instructions PO .COMPLEX #30 tabs 12/01/21 [Rx Last Taken Unknown] Allergy/AdvReac Type Severity Reaction Status Date / Time lansoprazole [From Prevacid] Allergy Swelling Verified 03/01/22 13:20 Surgical History History of cholecystectomy Social History Smoking Status: Former smoker substance use type: does not use ROS ROS ED ROS Narrative Denies recent illness. Review of Systems ROS Unobtainable: Denies due to encephalopathy Constitutional Constitutional ED: Denies chills, fever(s) or subjective Eyes Eyes: Reports none; Denies blurry vision or change in vision ENT ENT ED: Denies ear pain or rhinorrhea Cardiovascular Cardiovascular: Reports as per HPI and chest pain; Denies palpitations or racing heartbeat Respiratory/Chest Respiratory/Chest: Denies cough, dyspnea or dyspnea on exertion Gastrointestinal Gastrointestinal: Denies abdominal pain, constipation, diarrhea or melena Genitourinary Genitourinary ED: Denies dysuria or hematuria Musculoskeletal Musculoskeletal: Reports back pain; Denies arthralgias Integumentary Denies abscess or Abrasions Neurologic Neurologic: Denies headache(s) Psychiatric Psychiatric: Denies anxiety Endocrine Endocrinology: Denies cold intolerance Hematologic/Lymphatic Hematologic/Lymphatic: Denies easy bleeding or easy bruising Allergic/Immunologic Allergic/Immunologic ED: Denies mouth swelling or tongue swelling EXAM Physical Exam Narrative Exam Narrative: 26 female no acute distress vital signs stable afebrile. Exam unremarkable. H EENT exam unremarkable. Lungs clear. Heart regular rate and rhythm no murmur. Chest wall mild discomfort. Worse if she rotates around her rib cage or lifts her arms. No ecchymosis or bruising. No subcu air or crepitance. This does appear to be musculoskeletal. Abdomen soft nontender. Moving all 4 extremities. 5/5 laboratory engineer strength. Dorsi plantarflexion intact. Calves are nontender without edema. Equal symmetrical radial pulses. She has mild reproducible tenderness to her upper back. Neurologically she is awake alert with no focal motor deficits. Const Vital Signs: 03/01/22 13:20 03/01/22 13:34 03/01/22 13:34 Temperature 98.9 F Temperature Source Temporal Pulse Rate 78 69 Respiratory Rate 16 16 Respiratory Effort Normal Blood Pressure 128/79 H Blood Pressure Mean 95 Pulse Ox 99 98 Oxygen Delivery Method Room Air Room Air 03/01/22 14:53 03/01/22 15:46 03/01/22 16:45 Temperature Temperature Source Pulse Rate 63 66 73 Respiratory Rate 16 17 14 Respiratory Effort Blood Pressure 138/75 H 141/72 H Blood Pressure Mean 96 95 Pulse Ox 98 96 97 Oxygen Delivery Method Room Air Room Air Room Air 03/01/22 17:31 Temperature Temperature Source Pulse Rate 72 Respiratory Rate 15 Respiratory Effort Blood Pressure Blood Pressure Mean Pulse Ox 98 Oxygen Delivery Method Room Air Positive well nourished and well developed; Negative for obese, cachectic, contractures or unkempt General Appearance ED: well developed and NAD; Negative for unkempt, cachectic, contractures or pallor Nutritional Appearance: Negative for cachectic or obese HEENT Reports moist mucous membranes; Denies dry mucous membranes normocephalic and atraumatic; Negative for trauma or tenderness Mouth ED: No dry mucous membranes Mouth: No dry mucous membranes Eyes PERRL and EOMs intact bilaterally General Eye ED: Negative for pale conjunctiva, scleral icterus or other Neck no lymphadenopathy, supple and no JVD General: Negative for tenderness Chest Wall inspection of chest normal and palpation of chest normal Chest: Negative for tenderness or other Resp normal respiratory effort and clear to auscultation bilaterally Effort and Inspection: Negative for respiratory distress Auscultation: Negative for rales, rhonchi or wheezes Cardio regular rate, regular rhythm, S1 normal heart sound, S2 normal heart sound and no murmurs Rate: Negative for bradycardia or tachycardic Rhythm: Negative for abnormal rhythm Peripheral Pulses: pulses 2+ throughout GI normal to inspection, nondistended, normoactive bowel sounds, soft to palpation, non-tender, non-distended and no masses; Negative for hepatosplenomegaly Auscultation: Negative for hyperactive bowel sounds Palpation: Negative for splenomegaly, mass or other Back/Spine no CVA tenderness and no thoracic nor lumbar tenderness General Back: Negative for CVA tenderness Cervical Spine: Negative for cervical spine tenderness Extremity normal to inspection General Extremety ED: Negative for edema, pulses abnormal or tenderness General Extremity: Negative for edema or pulses abnormal Neuro oriented x3 and CN's II-XII intact bilaterally Sensorium / Orientation: awake, alert, oriented to person and oriented to place; Negative for oriented to time, confused, lethargic or stuporous Motor Exam: strength 5/5 throughout; Negative for general weakness or strength abnormal Psych mental status grossly normal Appearance: Negative for unkempt Attitude: No agitated Mood & Affect: Negative for depressed, anxious or tearful Skin no rashes or lesions noted and no wounds General Skin Exam: Negative for jaundice or pallor Rashes: No rashes noted Trauma: Negative for abrasion or laceration MDM MDM MDM Narrative Medical decision making narrative: 76-year-old female with reproducible what appears to be musculoskeletal pain. Nonexertional. She has no shortness of breath. It is worse with palpation or movement of her torso is her upper arms. No reason of a DVT or PE or risk factors. She will undergo cardiac work-up. Clinically considered musculoskeletal etiology. She took Tylenol at home and does not want a thing else for pain. Repeat exam patient doing well at 630. We went over all of her test results. Her and her are comfortable with her being discharged home. Clinically this is noncardiac I do not think she needs a second troponin. Lab Data Attestation: I reviewed the patient's lab results. Lab results narrative: CBC shows white count 1.4. H&H 13.4 and 42. Chemistries unremarkable gap of 2 normal BUN and creatinine. Glucose 86. Troponin 5. Chest x-ray shows chronic changes no acute process. Labs: Laboratory Results - last 24 hr 03/01/22 03/01/22 13:21 13:21 WBC 11.4 H RBC 4.49 Hgb 13.4 Hct 42.0 MCV 93.5 MCH 29.8 MCHC 31.9 L RDW Std Deviation 45.4 H RDW Coeff of Corinne 13.2 Plt Count 310 MPV 10.5 Immature Gran % (Auto) 0.400 Neut % (Auto) 54.3 Lymph % (Auto) 33.6 [place] % (Auto) 10.2 H Eos % (Auto) 1.2 Baso % (Auto) 0.3 Absolute Neuts (auto) 6.2 Absolute Lymphs (auto) 3.84 Nucleated RBC % 0 Sodium 142 Potassium 4.1 Chloride 107 Carbon Dioxide 33.0 H Anion Gap 2 L BUN 12 Creatinine 0.98 Estim Creat Clear Calc 41.03 Est GFR (MDRD) Af Amer 71 Est GFR (MDRD) Non-Af 59 L BUN/Creatinine Ratio 12.2 Glucose 86 Calcium 9.5 Troponin I High Sens 5 Radiography Chest X-Ray - ED: 1 View, Read by ED Physician, Heart, Lungs, Mediastinum, Bony Structures, No Acute Disease and Chronic Changes Diagnostic Testing: Clinical Impression(s) from Imaging Studies Chest X-Ray 03/01/22 14:41 IMPRESSION: Persistent increased markings at the lung bases worse at the left lung base suggestive of bibasilar atelectasis. Electronically Signed: Ghassan Hercules MD at 15:02 EST , Chest x-ray, portable, single view has densities both lower lungs which is most likely atelectasis because this was seen on prior chest x-ray. She is absent Mariann no pneumonia symptoms. There is no fractured ribs seen. Normal cardiac silhouette mediastinum. No pneumothoraces. Interpreted by myself. Rhythm Strip Rhythm Strip: Sinus Rhythm Rate: 71 Ectopy: None EKG Initial EKG: Attestation: I personally reviewed and interpreted this EKG as follows: Interpretation: Sinus Rhythm, No Acute Injury Pattern, Sinus Bradycardia and Sinus Tachycardia Comments: Normal sinus rhythm rate of 71 no acute signs of WI or ischemia. Unchanged from prior EKG from April. Prior EKG tracings: available for review Prior: Unchanged Discharge Plan Triage Chief Complaint: Chest Pain ED Provider: Hamlet Nieves Dx/Rx/DC Orders Clinical Impression: Acute chest wall pain, History of TIAs, History of vertebral compression fracture Instructions: ED Chest Wall Strain Prescriptions: No Action buspirone 5 MG tablet 5 mg PO DAILY PRN PRN (Reason: Anxiety) Label Comments: depression albuterol sulfate [ProAir HFA] 1 PUFF inhaler 1 - 2 puff inhalation Q4H PRN PRN (Reason: Wheezing) Label Comments: breathing escitalopram oxalate [Lexapro] 5 MG tablet 5 mg PO DAILY Label Comments: mental health famotidine 20 MG tablet 20 mg PO BID Qty: 30 0RF Label Comments: acid reflux fluticasone furoate-vilanterol [Breo Ellipta] 1 EACH blister with device 1 ea IH DAILY Paxlovid (EUA) 300 mg (150 mg x 2)-100 mg tablets,dose pack See Rx Instructions .ROUTE .COMPLEX Qty: 30 0RF Rx Instructions: take TWO 150 mg tablets of nirmatrelvir with ONE 100 mg tablet of ritonavir twice daily for 5 days Primary Care Provider: Elma White Referrals: Elma White, [employer] CLAIMS ASSISTANT-C [Primary Care Provider] - 10-14 Days if not better Activity Restrictions/Additional Instructions: Motrin or ibuprofen and Tylenol for pain. This should progressively start feeling better. Follow-up if not improving. Disposition Disposition: Home, Self Care
[2022-03-01 15:06] LABS: Anion Gap 2 (5-15); BUN 12 mg/dL (7-18); BUN/Creat Ratio 12.2 RATIO (10-20); Calcium,Total 9.5 mg/dL (8.5-10.1); Chloride 107 mmol/L (98-107); Creatinine, Serum 0.98 mg/dL (0.55-1.02); EST Glomerular Filtration Rate 59 mL/min (>60); Est Glom Filt Rate - Afr Amer 71 mL/min (>60); Estimated Creatinine Clearance 41.03 ml/min; Glucose 86 mg/dL (74-106); Potassium 4.1 mmol/L (3.5-5.1); Sodium Level 142 mmol/L (136-145); Troponin-I HS 5 pg/mL (3.0-54.0)
== END 2022-03-01 18:46 | disposition home or self-care (01) ==
PROVIDERS: Emergency Provider Emergency Medicine; PCP Nurse Practitioner Family; Visit Provider Emergency Medicine
DX: R07.89 Other chest pain (principal); R07.81 Pleurodynia; Z86.73 Personal history of transient ischemic attack (TIA), and cerebral infarction without residual deficits; Z87.891 Personal history of nicotine dependence
CPT/HCPCS: 71045; 80048; 84484; 85025; 93005; 99284

== ENCOUNTER 2022-03-20 10:10 | Emergency (ER) | payer MEDICARE, OTHER, SELFPAY ==
[2022-03-20 10:11] VITALS: BP 116/49; PULSE 85; RESP 18; TEMP 36.9; O2SAT 95; BMI 25.3
--- NOTE | 2022-03-20 10:22 | EDS_ITS ---
HPI History of Present Illness Chief Complaint: Cold Sx Informant: patient Onset/Context/Timing Onset: Days (3 days) Context: Gradual Onset Current Severity: Mild Maximum Severity: Moderate Narrative Narrative: Patient presents with URI symptoms for the past 3 days. She states Sunday morning she got sick with mild cold symptoms. Overnight symptoms seem to have settled into her chest. She had temperature of 100 this morning. She reports nausea but no vomiting or diarrhea. No abdominal pain. No urinary symptoms. She is bringing up sputum but has not checked the color. 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 PVD (peripheral vascular disease) Home Medications albuterol sulfate 90 mcg/actuation aerosol inhaler (ProAir HFA) 1 - 2 puff inhalation Q4H PRN PRN Wheezing 09/09/13 [History Last Taken 11/04/14 08:00 1 PUFF] buspirone 5 mg tablet 5 mg PO DAILY PRN PRN Anxiety 09/09/13 [History Last Taken 11/04/14 17:00 5 MG] escitalopram oxalate 5 mg tablet (Lexapro) 5 mg PO DAILY 04/22/15 [History Last Taken Unknown] famotidine 20 mg tablet 20 mg PO BID #30 tabs 09/30/16 [Rx Last Taken Unknown] fluticasone furoate 100 mcg-vilanterol 25 mcg/dose inhalation powder (Breo Ellipta) 1 ea IH DAILY 08/03/17 [History Last Taken Unknown] nirmatrelvir 300 mg (150 mg x2)-ritonavir 100 mg tablet,dose pack(EUA) (Paxlovid) See Rx Instructions PO .COMPLEX #30 tabs 12/01/21 [Rx Last Taken Unknown] oseltamivir 75 mg capsule (Tamiflu) 75 mg PO BID 5 days #10 caps 03/20/22 [Rx Last Taken Unknown] Allergy/AdvReac Type Severity Reaction Status Date / Time lansoprazole [From Prevacid] Allergy Swelling Verified 03/20/22 10:13 meloxicam AdvReac Other Verified 03/20/22 10:13 Surgical History History of cholecystectomy Social History Smoking Status: Former smoker substance use type: does not use ROS ROS ED Constitutional Constitutional ED: Reports fever(s); Denies chills Eyes Eyes: Denies change in vision or discharge from eye(s) ENT ENT ED: Reports sore throat and other Details: Congestion ; Denies discharge from eye(s) or rhinorrhea Cardiovascular Cardiovascular: Denies chest pain or palpitations Respiratory/Chest Respiratory/Chest: Reports cough Gastrointestinal Gastrointestinal: Reports nausea; Denies abdominal pain, diarrhea or vomiting Genitourinary Genitourinary ED: Denies difficulty urinating or dysuria Musculoskeletal Musculoskeletal: Reports myalgias; Denies back pain or extremity pain Integumentary Denies Abrasions or rash Neurologic Neurologic: Denies headache(s) or weakness Allergic/Immunologic Allergic/Immunologic ED: Denies lip swelling or urticaria EXAM Physical Exam Const Vital Signs: 03/20/22 10:11 03/20/22 10:31 Temperature 98.4 F Temperature Source Temporal Pulse Rate 85 Respiratory Rate 18 Respiratory Effort Normal Blood Pressure 116/49 L Blood Pressure Mean 71 Pulse Ox 95 Oxygen Delivery Method Room Air Positive well nourished and well developed General Appearance ED: well developed HEENT Reports normocephalic and head/scalp atraumatic HEENT Narrative: 2+ tonsils, symmetric. Uvula midline Eyes PERRL and EOMs intact bilaterally Neck supple Chest Wall inspection of chest normal and palpation of chest normal Resp normal respiratory effort and clear to auscultation bilaterally Cardio regular rate and regular rhythm GI normal to inspection, nondistended, normoactive bowel sounds and non-tender Palpation: soft Extremity normal to inspection Neuro oriented x3 and no sensory deficits noted Sensorium / Orientation: alert Motor Exam: strength 5/5 throughout Psych mental status grossly normal Skin no rashes or lesions noted MDM MDM MDM Narrative Medical decision making narrative: Lab for COVID and influenza sent. Portable chest x-ray obtained. Radiography Chest X-Ray - ED: 1 View, Read by ED Physician and Chronic Changes (Mild atelectasis left lung base. No focal infiltrate.) Diagnostic Testing: Clinical Impression(s) from Imaging Studies Chest X-Ray 03/20/22 10:35 IMPRESSION: Mild degree of persistent increased markings at the lung bases as described. Further follow-up recommended. Electronically Signed: Ghassan Hercules MD at 11:11 EST , Treatment and Re-Evaluation Narrative: Chest x-ray per my interpretation reveals mild atelectasis at the left base but no infiltrate. Radiology interpretation is reviewed. COVID test is negative. Flu test returns positive for influenza A. Test results are discussed with the patient. I will write her for Tamiflu. Return instructions provided. Discharge Plan Triage Chief Complaint: Cold Sx Other Complaint: Fever ED Provider: Jamila Torres Dx/Rx/DC Orders Clinical Impression: Influenza A Instructions: ED Influenza (Adult) Prescriptions: New oseltamivir [Tamiflu] 75 mg capsule 75 mg PO BID 5 Days Qty: 10 0RF No Action buspirone 5 MG tablet 5 mg PO DAILY PRN PRN (Reason: Anxiety) Label Comments: depression albuterol sulfate [ProAir HFA] 1 PUFF inhaler 1 - 2 puff inhalation Q4H PRN PRN (Reason: Wheezing) Label Comments: breathing escitalopram oxalate [Lexapro] 5 MG tablet 5 mg PO DAILY Label Comments: mental health famotidine 20 MG tablet 20 mg PO BID Qty: 30 0RF Label Comments: acid reflux fluticasone furoate-vilanterol [Breo Ellipta] 1 EACH blister with device 1 ea IH DAILY Paxlovid (EUA) 300 mg (150 mg x 2)-100 mg tablets,dose pack See Rx Instructions .ROUTE .COMPLEX Qty: 30 0RF Rx Instructions: take TWO 150 mg tablets of nirmatrelvir with ONE 100 mg tablet of ritonavir twice daily for 5 days Primary Care Provider: Elma White Referrals: Elma White, DENICE-C [Primary Care Provider] - 1-2 Weeks Disposition Disposition: Home, Self Care
--- NOTE | 2022-03-20 10:35 | RAD_ITS ---
STUDY: X-RAY CHEST REASON FOR EXAM: Female, 76 years old. Cough and chest congestion for 2 days. Fever. TECHNIQUE: Single AP portable view of the chest. COMPARISON: Comparison is made with prior study dated 03/01/2022. FINDINGS: Persistent increased markings at the lung bases worse on the left side as compared to prior study although there has been mild improvement. There is no demonstrated pleural abnormality. Normal size heart. Normal mediastinum and leif. Normal visualized pulmonary arteries. There is atherosclerotic calcification of the aortic arch with tortuosity. There are degenerative changes of the visualized thoracic spine. Normal visualized ribs, clavicles, and shoulders. There is no demonstrated abnormality of the visualized soft tissue structures of the upper abdomen. RAD/Chest 1 View (Portable) IMPRESSION: Mild degree of persistent increased markings at the lung bases as described. Further follow-up recommended. Electronically Signed: Ghassan Hercules MD at 11:11 [facility] ,
[2022-03-20 11:23] VITALS: BP 139/81; PULSE 79; RESP 16; O2SAT 95
== END 2022-03-20 11:24 | disposition home or self-care (01) ==
PROVIDERS: Emergency Provider Emergency Medicine; PCP Nurse Practitioner Family; Visit Provider Emergency Medicine
DX: J10.1 Influenza due to other identified influenza virus with other respiratory manifestations (principal); Z87.891 Personal history of nicotine dependence
CPT/HCPCS: 71045; 87428; 99282

== ENCOUNTER 2022-04-06 09:30 | Outpatient (RCR) | payer MEDICARE, OTHER, SELFPAY ==
--- NOTE | 2022-03-07 11:44 | HP.PTEVAL_ITS ---
Patient's Visit Information MANOLO URIBE is a 76 year old F referred to Physical Therapy by Dr. Fidel Orozco MD with a diagnosis of LUMBOSACRAL SPONDYLOSIS, STENOSIS, RADICULITIS AND DDD. Date of Evaluation: 03/07/22 Physical Therapist: Kylah Jones, PT, Cert MDT - Visit Plan Frequency: 2-3x /Week Duration: 4-6 Weeks Plan: AQUATIC THERAPY FOR PAIN RELEIF, POSTURE CORRECTION/STRENGTHENING, INSTRUCTION IN APPROPRIATE BODY MECHANICS AND ACTIVITY MODIFICATIONS. UPPER BODY STRENGTHENING. DLS STARTING WITH A NEUTRAL SPINE PROGRESSING ROM TOLERATED. JODIE LE ROM, STRETCHING AND STRENGTHENING. HEP INSTRUCTION. - Subjective Work/Leisure: RETIRED. LIVES WITH WHOM IS IN GOOD HEALTH. Present symptoms: UPPER, MID AND LOW BACK PAIN. L GREAT TOE NUMBNESS. RIB PAIN JODIE. Present since: SPRING 2021. Pain Scale: WORST 4/10, LEAST 2-3/10. Currently: 2/10. Is it getting better, worse or staying the same: GETTING BETTER WITH THE SHOTS. Commenced as a result of: LIFTING ITEMS IN THE SPRING CAUSED A FRACTURE IN L5. Symptoms at onset: LOW BACK PAIN. Worse: BENDING OVER, MAKING THE BED, ANY KIND OF LIFTING. Better: HEATING PAD, ICE, ANTI- INFLAMMATORY. Disturbed sleep: YES. Previous history/Previous treatment: CHIROPRACTIC IN THE PAST. NO BACK SURGERY. NO BACK INJECTIONS PRIOR TO 2021. Treatment this episode: PRESCRIPTION MEDICATION, VERTEBRAL PLASTY L5 BY DR. HOLGUIN SUMMER 2021. KAILASH X 1 SINCE THE VERTEBRALPLASTY AND MULTIPLE JODIE HIP INJECTIONS. Coughing/sneezing/straining: NEGATIVE. Gait: PRETTY GOOD. MORE STRAIGHT UP SINCE INJECTIONS. NO AD'S. NO LIMPING. BEING CAREFUL. Bowel or Bladder Dysfunction: NO. Accidents: NO. Unexplained weight loss: NO. Imaging: NONE SINCE PROCEEDURES. PMH/Recent major surgery: OSTEOPOROSIS, ASTHMA, ALLERGIES, R ROTATOR REPAIR, DEPRESSION, REFLUX. - Objective Sitting/Standing Posture: POOR. FH. RSH'S. INCREASED KYPHOSIS. NO RELEVENT LATERAL SHIFT. Active Correction of posture: WORSE. Other Observations: INDEP GAIT INTO PT WITHOUT AD OR LOB. INDEP SIT TO STAND WITHOUT UE ASSIST. Sensory deficit: JODIE LE LIGHT TOUCH SENSATION IS GROSSLY INTACT AND SYMMETRICAL. ROM deficit: JODIE HIP FLEXOR, HS AND CALF TIGHTNESS. JODIE UE ROM WFL BUT ABOUT 25% DEFICIT JODIE SHLD ER. Motor deficit: JODIE UE'S AND LE'S WFL BUT SHLDS GRADED 4-/5 AND HIPS 4/5. Dural Signs: POSITIVE JODIE LE'S. Lumbar mvmt loss: flex - MIN. ext - JAISON. R SG - JAISON. L SG - JAISON. PATIENT C/O INCRASED PAIN IN UPPER AND LOWER BACK WITH LUMBAR ROM TESTING INTO EXT AND JODIE SG. THORACIC MVMT LOSS: R ROT- JAISON. L ROT - JAISON. PATIENT C/O INCREASED MID BACK PAIN WITH JODIE THORACIC ROTATION TESTING. Core strength: POOR. Palpation: TENDERNESS WITH PALPATION OF LUMBAR SPINE AND JODIE HIPS. PATIENT DENIES INCREASED PAIN WITH PALPATION OF TH ORACIC SPINE OR RIB AREAS BUT THESE ARE AREAS SHE DOES HAVE PAIN. TREATMENT: NEUROMUSCULAR REEDUCATION - RETRAINING OF MVMT AND POSTURE FOR SITTING, LYING AND STANDING ACTIVITIES. - Balance/Special Test Scores Oswestry Low Back Score: 11 - Goals Goal 1:: DECREASE C/O SPINE AND RIB PAIN. Goal Time Frame: 4-6 Weeks Goal 2:: IMPROVE LIFTING, STANDING, TRAVEL AND HOMEMAKING FUNCTION. Goal Time Frame: 4-6 Weeks Goal 3:: INSTRUCT IN PROPHYLAXIS Goal Time Frame: 4-6 Weeks - Anticipated Interventions Patient/Client Instruction: Educate patient on: Condition, Plan of Care, Risk Factors For the Purpose of:: To improve self management Therapeutic Exercise to Include: Strength training, Body mechanics, Postural training, Flexibilty training, Neuromotor development, In an aquatic setting, Dynamic Lumbar Stabilization, Scapular Strength/Stabilization For the Purpose of:: To decrease pain, To increase ROM, To improve muscle performance and motor function, To increase tolerance to activity/condition/position, To improve ability of physical actions for home/community/work/leisure Thank you for the opportunity to evaluate your patient. For Medicare and Medicare HMO plans, please review the plan of care and approve it. It will need to be FAXED BACK to us at [phone] for Medicare purposes. For Medicare only, by signing this I certify the plan of care. Please let me know if there are questions or concerns regarding this plan of care. Physician Signature: Date:
--- NOTE | 2022-04-06 10:01 | HP.PTDCSUM ---
It has been my pleasure to treat MANOLO URIBE referred by Dr. Fidel Orozco MD, with the diagnosis of LUMBOSACRAL SPONDYLOSIS, STENOSIS, RADICULITIS AND DDD for a total of 4 visit(s). Discharge Date: Please see the following information for a summary of their discharge status. Subjective: PATIENT REPORTS SHE HAS HAD TO MISS THERAPY DUE TO DEALING WITH THE FLU. SHE REPORTS HER BACK FEELS GOOD AFTER THE SHOTS AND THE WATER EX SESSIONS. PATIENT REPORTS SHE CANCELLED HER FOLLOW UP WITH DR. GREEN BECAUSE OF HER BUSY HOLIDAY SEASON AND SHE PLANS TO FOLLOW UP WITH HIM SOMETIME IN THE NEW YEAR. SHE REPORTS HER UPPER BACK AND RIB PAIN IS GONE. STATES SHE JUST HAS SOME BACK TIGHTNESS IN GENERAL WITH DAILY ACTIVITIES AND IT IS GETTING BETTER. STATES SHE REALLY LIKES THE WATER EX BUT WANTS TO STOP DUE TO THE WEATHER AND ILLNESS. PATIENT REPORTS SHE PULLED A MUSCLE IN HER RIGHT RIB AREA SUNDAY COUGHING AND IT IS GETTING BETTER. STATES IT HAS HAPPENED BEFORE. low back Pain Intensity (Out of 10): 2 % Improvement: 80 Objective/Function: PATIENT WAS SEEN TODAY FOR RE-ASSESSMENT OF PROGRESS TOWARD THE SET PT GOALS AND THE NEED FOR FURTHER PHYSICAL THERAPY VS READINESS FOR DISCHARGE. UPON EXAM TODAY: Dural Signs: POSITIVE JODIE LE'S. Lumbar mvmt loss: flex - NIL. ext - MOD TO JAISON. R SG - MOD. L SG - MOD TO JAISON. PATIENT DENIES INCRASED PAIN IN UPPER, MIDDLE AND LOWER BACK WITH LUMBAR ROM TESTING ALL PLANES TODAY. THORACIC MVMT LOSS: R ROT- MOD. L ROT - MOD. PATIENT DENIES INCREASED MID BACK PAIN WITH JODIE THORACIC ROTATION TESTING. PALPATION: NO ACUTE SPINE OR RIB TENDERNESS WITH PALPATION TODAY. INSTRUCTED PATIENT IN GENTLE JODIE LE SUPINE SKTC AND LTR X 10, 2-3 TIMES A DAY TOLERATED. ALSO INSTRUCTED PATIENT TO CONTACT HER DOCTOR IF HER R RIB PAIN DOESN'T GET BETTER OR GETS WORSE. Goal 1:: DECREASE C/O SPINE AND RIB PAIN. Goal Progress: Goal Met Goal 2:: IMPROVE LIFTING, STANDING, TRAVEL AND HOMEMAKING FUNCTION. Goal Progress: Goal Met Goal 3:: INSTRUCT IN PROPHYLAXIS Goal Progress: Goal Met Plan: D/C TO [facility]. PATIENT AGREEABLE. If there are questions or concerns regarding this patient's physical therapy, please feel free to call me at [phone]. Thank you for the referral of this patient. Sincerely, Kylah Jones, PT, Cert MDT Balance/Gait/Functional tests - Balance/Special Test Scores Oswestry Low Back Score: 6
== END 2022-04-06 10:51 | disposition home or self-care (01) ==
LOC: PT 09:30
PROVIDERS: PCP Nurse Practitioner Family; Referring Provider Anesthesiology Pain Medicine; Visit Provider Anesthesiology Pain Medicine
DX: M51.37 Other intervertebral disc degeneration, lumbosacral region (principal); M54.17 Radiculopathy, lumbosacral region; M48.07 Spinal stenosis, lumbosacral region; M47.817 Spondylosis without myelopathy or radiculopathy, lumbosacral region
CPT/HCPCS: 97110; 97112; 97113; 97162; 97164

== ENCOUNTER → 2022-04-12 | Outpatient (CLI) | payer MEDICARE, OTHER, SELFPAY ==
--- NOTE | 2022-04-12 08:56 | RAD_ITS ---
STUDY: X-RAY - THORACIC SPINE REASON FOR EXAM: Female, 76 years old. BACK PAIN TECHNIQUE: XR Spine Thoracic Min 4 Views COMPARISON: None FINDINGS: Normal kyphosis of the thoracic spine. There is no substantial scoliosis. There is demineralization of the thoracic spine with endplate spondylosis. There is multilevel disc space narrowing of the thoracic spine. There are compression deformities of the spine. These are age-indeterminate. MRI could further evaluate if of concern. The soft tissue structures are unremarkable. RAD/Thoracic Spine Min 4 Views IMPRESSION: There are degenerative changes as noted above.There are compression deformities of the spine. These are age-indeterminate. MRI could further evaluate if of concern. Electronically Signed: Connor Gifford MD at 20:04 EST ,
== END | disposition home or self-care (01) ==
LOC: RAD 08:52
PROVIDERS: PCP Nurse Practitioner Family; Referring Provider Anesthesiology Pain Medicine; Visit Provider Anesthesiology Pain Medicine
DX: M51.34 Other intervertebral disc degeneration, thoracic region (principal); M47.814 Spondylosis without myelopathy or radiculopathy, thoracic region
CPT/HCPCS: 72074

== ENCOUNTER → 2022-04-26 | Outpatient (CLI) | payer MEDICARE, OTHER, SELFPAY ==
--- NOTE | 2022-04-26 08:10 | MRI_ITS ---
ACR Level 3 findings have been noted. An addendum which confirms receipt of the report will follow. STUDY: MRI THORACIC SPINE WITHOUT CONTRAST REASON FOR EXAM: Female, 76 years old. ACUTE FX TECHNIQUE: Standardized fat and water weighted pulse sequences were obtained in the sagittal and axial planes. COMPARISON: X-ray of the thoracic spine dated April 12, 2022. CT of the chest dated May 16, 2021 FINDINGS: Normal kyphosis of the thoracic spine. There is no substantial scoliosis. There are chronic compression deformities of the T4, T11, and T12 vertebral bodies with moderate to significant loss of height from 50% to vertebral plana deformities. There are also chronic compression deformities of the L1 and L2 vertebral bodies. An acute compression fracture of the T7 vertebral body is present with 50-60% loss of height, diffuse edema, and only minimal posterior cortical retropulsion. Small bilateral pleural effusions are partially visualized. A moderate size simple cyst is seen in the midpole of the right kidney which does not require any additional imaging. The spinal ligaments are intact. No epidural fluid collections are present. T1-2, T2-3, T3-4, T4-5, T5-6, T6-7, T7-8, T8-9, T9-10, T10-11, T11-12: Disc desiccation with mild disc space narrowing and endplate spurring is present at all visualized levels. Mild posterior annular bulging and shallow midline disc protrusion is present at the T7-T8 level resulting in mild central canal stenosis. Normal central canal at the remaining levels. Normal bilateral intervertebral neural foramina at all levels. No visualized nerve root compression or cord compression. Normal visualized thoracic cord. No cord edema or syrinx formation or other lesions are present. Normal conus medullaris that terminates at the L1 level. The soft tissue structures are unremarkable. MRI/Spine Thoracic (Routine) IMPRESSION: 1. Acute compression fracture of the T7 vertebral body with 50-60% loss of height and only minimal posterior cortical retropulsion 2. Chronic compression deformities of the T4, T11, T12, L1, and L2 vertebral bodies. 3. Multilevel degenerative changes of the thoracic spine. Electronically Signed: Abdirizak Cooper MD at 12:52 EST ,
== END | disposition home or self-care (01) ==
LOC: MRI 07:58
PROVIDERS: PCP Nurse Practitioner Family; Referring Provider Anesthesiology Pain Medicine; Visit Provider Anesthesiology Pain Medicine
DX: M48.54XA Collapsed vertebra, not elsewhere classified, thoracic region, initial encounter for fracture (principal); N28.1 Cyst of kidney, acquired; J90 Pleural effusion, not elsewhere classified; M47.814 Spondylosis without myelopathy or radiculopathy, thoracic region; M51.24 Other intervertebral disc displacement, thoracic region; M48.04 Spinal stenosis, thoracic region; R29.890 Loss of height; M51.34 Other intervertebral disc degeneration, thoracic region; M54.14 Radiculopathy, thoracic region
CPT/HCPCS: 72146

== ENCOUNTER → 2022-04-27 | Outpatient (CLI) | payer MEDICARE, OTHER, SELFPAY ==
[2022-04-27 08:06] LABS: Bacteria 0 SEEN /hpf (None Seen); Mucous, Urine 0 SEEN /hpf (<or=2+); Red Blood Cells-Urine 0 SEEN /hpf (0-5)
[2022-04-27 08:45] LABS: Absolute Lymphocyte Count 2.54 X10^3/uL (0.83-4.51); Absolute Neutrophil Count 5.9 X10^3/uL (2.0-7.7); Basophil# 0.04 X10^3/uL; Basophil% 0.4 % (0-1); Eosinophil# 0.36 X10^3/uL; Eosinophils% 3.6 % (0-5); Hematocrit 41.6 % (37-47); Hemoglobin 13.1 g/dL (12.0-15.0); Lymphocyte # 2.54 X10^3/ul (0.83-4.51); Mean Corp Hgb Conc 31.5 g/dL (32-36); Mean Corpuscular Hgb 29.6 pg (27.0-32.0); Mean Corpuscular Volume 93.9 fL (81-99); Mean Platelet Vol. 9.1 fl (6.2-12.0); Monocyte# 1.21 X10^3/uL; Monocyte% 11.9 % (0-10); NRBC Flagged by Analyzer 0 % (0-5); Neutrophil # 5.92 X10^3/uL (2.7-7.7); Neutrophil % 58.4 % (47-70); Platelet Count 307 K/mm3 (150-450); RBC Distribution Width CV 13.2 % (11.6-14.6); RBC Distribution Width SD 45.1 fl (35.1-43.9); Red Blood Count 4.43 M/mm3 (4.2-5.4); White Blood Count 10.1 K/mm3 (4.4-11.0)
[2022-04-27 08:50] LABS: Color, Urine Yellow (Yellow); Glucose, Dipstick Normal (Normal); Ketone-Dipstick Negative (Negative); Leukocyte Esterase-Dipstick 100 /ul (Negative); Nitrite-Dipstick Negative (Negative); Occult Blood-Urine 10 /ul (Negative); Protein-Dipstick Negative (Negative); Urine Bilirubin Dipstick Negative (Negative); Urine Clarity Clear (Clear); Urine Urobilinogen Normal (Normal)
[2022-04-27 08:59] LABS: Squamous Epithelial Cells - UA 5-10 SEEN /hpf (5-10)
[2022-04-27 09:01] LABS: White Blood Cells 0-5 SEEN /hpf (0-5)
[2022-04-27 09:15] LABS: Vitamin D,25 Hydroxy 49.4 ng/mL
[2022-04-27 09:22] LABS: Microalbumin,Random Urine 7.7 mg/L (NO RANGE EST.); Microalbumin:Creatinine Ratio 7.7 mg/g CRE (<30 mg/g CRE)
[2022-04-27 09:23] LABS: ALB/GLOB Ratio 0.7 RATIO (0.9-2.4); AST(SGOT) 30 U/L (15-37); Alanine Aminotransfer ALT/SGPT 69 U/L (13-56); Albumin, Serum 2.9 g/dL (3.2-5.0); Alkaline Phosphatase 83 U/L (45-117); Anion Gap 6 (5-15); BUN 14 mg/dL (7-18); BUN/Creat Ratio 13.9 RATIO (10-20); Chloride 104 mmol/L (98-107); Cholesterol 221 mg/dL (200); Creatinine, Serum 1.01 mg/dL (0.55-1.02); EST Glomerular Filtration Rate 57 mL/min (>60); Est Glom Filt Rate - Afr Amer 69 mL/min (>60); Globulin 4.4 g/dL (2.2-4.2); Glucose 86 mg/dL (74-106); High Density Lipoprotein 69 mg/dL; Potassium 4.3 mmol/L (3.5-5.1); Protein, Total 7.3 g/dL (6.4-8.2); Sodium Level 139 mmol/L (136-145); Thyroid Stim Hormone (TSH) 1.05 uIU/mL (0.358-3.74); Triglycerides 112 mg/dL; Very Low Density Lipoprotein 22 mg/dL (5-40)
== END | disposition home or self-care (01) ==
LOC: LAB 08:01
PROVIDERS: PCP Nurse Practitioner Family; Referring Provider Nurse Practitioner Family; Visit Provider Nurse Practitioner Family
DX: E55.9 Vitamin D deficiency, unspecified (principal); N18.31 Chronic kidney disease, stage 3a; K21.9 Gastro-esophageal reflux disease without esophagitis; E78.00 Pure hypercholesterolemia, unspecified
CPT/HCPCS: 36415; 80053; 80061; 81001; 82043; 82306; 82570; 84443; 85025

== ENCOUNTER → 2022-05-02 | Outpatient (CLI) | payer MEDICARE, OTHER, SELFPAY ==
--- NOTE | 2022-05-02 12:00 | BONBX_PTH ---
PATIENT: TIFFANY URIBE LOC: [facility] U#:[id number] AGE/SX: 76/F ROOM: RE05/02/[address]: Dr. Fidel Orozco MD : [id number] BED: DIS: 05/02/2022 SPEC #: [id number] RECD: 05/02/22 14:56 STATUS: JOSE REFeng #: [id number] CECILE: 05/02/22 12:[address]: Fidel Orozco DEPT: SURGICAL PATHOLOGY RECD BY: Susana Shepherd ENTERED: 05/03/22 07:37 SP TYPE: Bone OTHR DR: Elma White, DENICE-Brad [facility] [place] Tissues: Vertebra, NOS Procedures: Decalcification bone/plaque Surgery Specimen Level V HEADER OPERATION: Kyphoplasty T7 PRE-OP DIAGNOSIS: Fracture T7 TISSUE SUBMITTED: Body of T7 MICROSCOPIC DIAGNOSIS Body of T7, bone biopsy: Organizing fracture callus. AM:del 05/04/2022 MICROSCOPIC DESCRIPTION Slides are reviewed. GROSS DESCRIPTION Received in fixative is one container labeled with the patient's name and designated bone T7. The specimen consists of multiple irregular fragments of cui gritty tissue that in aggregate measure 0.7 x 0.2 x 0.1 cm. The specimen is totally submitted in one cassette after decalcification. / AM:del 05/03/2022 TC:5 CPT: 85509, 81544
== END | disposition home or self-care (01) ==
LOC: LABSPEC 15:12
PROVIDERS: PCP Nurse Practitioner Family; Visit Provider Anesthesiology Pain Medicine
DX: S22.069A Unspecified fracture of T7-T8 vertebra, initial encounter for closed fracture (principal)
CPT/HCPCS: 88307; 88311

== ENCOUNTER → 2022-05-16 | Outpatient (CLI) | payer MEDICARE, OTHER, SELFPAY ==
--- NOTE | 2022-05-16 08:18 | BD_ITS ---
STUDY: DUAL ENERGY X-RAY ABSORPTIOMETRY / DXA REASON FOR EXAM: Female, 76 years old. M810 TECHNIQUE: Bone Mineral Density (BMD) measurements of lumbar spine and bilateral hips were obtained. COMPARISON: Comparison is made with prior study dated 03/09/2020. FINDINGS: Lumbar Spine (L1-L4): g/cm2 (0.560) / T-score (-4.4) / Z-score (-2.0) Findings are suggestive of osteoporosis with a high fracture risk. Left Femur Total: g/cm2 (0.581) / T-score (-3.0) / Z-score (-1.2) Left Femoral Neck: g/cm2 (0.414) / T-score (-3.9) / Z-score (-1.8) Right Femur Total: g/cm2 (0.584) / T-score (-2.9) / Z-score (-1.1) Right Femoral Neck: g/cm2 (0.409) / T-score (-4.0) / Z-score (-1.9) The T-Scores on the most recent prior examination were: Lumbar Spine (L1-L4): There has been worsening of bone density since the previous examination. Left Femur Total: which represents a worsening of 4.1%. Right Femur Total: which represents a worsening of 6.8%. BD/Dexa Bone Density Study IMPRESSION: The patient is considered osteoporotic as outlined below according to World Shane Organization (WHO) criteria with a high fracture risk. There has been worsening of bone density since the previous examination. Reference Information: The T-score is the number of standard deviations above or below the standard which is normal for young adults at their peak bone mineral density. The World Health Organization (WHO) interprets the T-scores as follows: Above -1 Normal bone density Between -1 and -2.5 Osteopenia Equal to / or below -2.5 Osteoporosis As a practical clinical guideline, osteopenia may be graded as follows: Mild -1 through -1.5 Moderate -1.6 through -2.0 Severe -2.1 through -2.4 The Z-score is the number of standard deviations above or below age-matched controls. A Z-score of less than -1.5 would be considered abnormal. References: 1. NIH Osteoporosis and Related Bone Diseases www osteo.org 2. International Society for Clinical Densitometry www iscd.org 3. National Osteoporosis Foundation www nof.org Electronically Signed: Ghassan Hercules MD at 8:05 EST ,
== END | disposition home or self-care (01) ==
PROVIDERS: PCP Nurse Practitioner Family; Visit Provider Nurse Practitioner Family
DX: M81.0 Age-related osteoporosis without current pathological fracture (principal); M85.80 Other specified disorders of bone density and structure, unspecified site
CPT/HCPCS: 77080

== ENCOUNTER → 2022-06-09 | Outpatient (CLI) | payer MEDICARE, OTHER, SELFPAY ==
[2022-06-09 10:39] VITALS: BP 129/53; PULSE 71; RESP 16; TEMP 36.1; O2SAT 98; BMI 25.4
[2022-06-09] MEDS: 0.9% NaCl Peripheral Flush Adult/Peds IV ×2 (10:54→11:21)
[2022-06-09] MEDS: Zoledronic Acid 5 MG 100 ML 300 MG IV (10:54)
[2022-06-09 11:25] VITALS: BP 121/59; PULSE 56; RESP 16; TEMP 36.1; O2SAT 100
== END | disposition home or self-care (01) ==
PROVIDERS: PCP Nurse Practitioner Family; Referring Provider Nurse Practitioner Family; Visit Provider Nurse Practitioner Family
DX: M81.0 Age-related osteoporosis without current pathological fracture (principal)
CPT/HCPCS: 96365; 96361; A4216; J3489

== ENCOUNTER → 2022-07-31 | Outpatient (CLI) | payer MEDICARE, OTHER, SELFPAY ==
--- NOTE | 2022-07-31 09:31 | BI_ITS ---
MAMMOGRAPHY - BILATERAL SCREENING 3-D TOMOSYNTHESIS REASON FOR EXAM: Female, 76 years old. SCREENING PERTINENT HISTORY: No significant family history. TECHNIQUE: 2-D mammograms and 3-D Tomosynthesis of the breast (s) were performed. CAD was performed. COMPARISON: 05/16/2021 FINDINGS: The breast composition is composed of scattered fibroglandular density. Scattered benign calcifications are seen. No dense spiculated masses or suspicious microcalcifications are identified. No architectural distortion is identified. There is no skin thickening or retraction. There has been no significant change since the prior study. BI/SCRN MAMM (CAD)W/STEPHEN BILAT IMPRESSION: No mammographic signs of malignancy. Routine yearly mammograms recommended. ASSESSMENT CATEGORY: BIRADS Category 1: Negative. A letter regarding these results will be sent to the patient by the facility within 30 days. FOLLOW UP RECOMMENDATION: Yearly follow up mammogram recommended. (A) Approximately 10% of breast cancers are not detected by mammography. A normal mammogram should not delay biopsy of a clinically suspicious abnormality. Electronically Signed: Cortes Aguilar MD at 10:28 EDT ,
== END | disposition home or self-care (01) ==
LOC: OPBI 09:30
PROVIDERS: PCP Nurse Practitioner Family; Visit Provider Nurse Practitioner Family
DX: Z12.31 Encounter for screening mammogram for malignant neoplasm of breast (principal)
CPT/HCPCS: 77063; 77067

== ENCOUNTER 2022-08-23 09:00 | Outpatient (RCR) | payer MEDICARE, OTHER, SELFPAY ==
--- NOTE | 2022-06-05 11:26 | HP.PTEVAL_ITS ---
Patient's Visit Information TIFFANY URIBE is a 76 year old F referred to Physical Therapy by Dr. Fidel Orozco MD with a diagnosis of OSTEOPOROSIS, LUMBAR RADICULITIS, STENOSIS AND SPONDYLOSIS. Date of Evaluation: 06/05/22 Physical Therapist: Kylah Jones PT, Cert MDT - Visit Plan Frequency: 2-3x /Week Duration: 4-6 Weeks Plan: *VERY OSTEOPOROTIC WITH 2 RECENT VERTEBRAL FX'S AND VERTEBRALPLASTY PROCEEDURES*. POSTURE CORRECTION/STRENGTHENING, INSTRUCTION IN APPROPRIATE BODY MECHANICS AND ACTIVITY MODIFICATIONS. DLS STARTING WITH A NEUTRAL SPINE PROGRESSING ROM TOLERATED. JODIE UE AND LE ROM, STRETCHING AND STRENGTHENING. HEP INSTRUCTION. - Subjective Work/Leisure: RETIRED. LIVES WITH WHOM IS IN GOOD HEALTH. Present symptoms: PATIENT REPORTS HER LOWER BACK HAS BEEN TAKENT CARE OF AND FEELS GREAT SINCE THE SHOTS BUT HER PAIN NOW IS IN HER MIDDLE BACK AND PAIN RADIATES INTO HER RIBS JODIE. L GREAT TOE NUMBNESS. Present since: SPRING 2021 LOW BACK L5. NEW T7 FX SOMETIME MAR 2022. Pain Scale: WORST 2-3/10, LEAST 1-2/10. Currently: 2/10. Is it getting better, worse or staying the same: STAYING THE SAME. Commenced as a result of: LIFTING ITEMS IN THE SPRING CAUSED A FRACTURE IN L5. NEW FRACTURE HAPPENED FOR NO APPARENT REASON OTHER THAN COUGHING FOR 4 WKS. Symptoms at onset: BACK AND JODIE SIDE PAIN - SEVERE. Worse: BENDING OVER, MAKING THE BED, ANY KIND OF LIFTING. TRYING TO STAND AND WALK STRAIGHT UP TALL. Better: HEATING PAD, ICE, GABAPENTIN, BEING UP AND AROUND IN APPARTMENT. BEING IN RECLINER. Disturbed sleep: NO Previous history/Previous treatment: CHIROPRACTIC IN THE PAST. NO BACK SURGERY. NO BACK INJECTIONS PRIOR TO 2021. PRESCRIPTION MEDICATION, VERTEBRAL PLASTY L5 BY DR. HOLGUIN SUMMER 2021. KAILASH X 1 SINCE THE VERTEBRALPLASTY AND MULTIPLE JODIE HIP INJECTIONS. T-[address] GREEN MAY 02, 2022. Coughing/sneezing/straining: POSITIVE Gait: PRETTY GOOD. NO AD'S. NO LIMPING. BEING CAREFUL. Bowel or Bladder Dysfunction: NO. Accidents: NO. Unexplained weight loss: NO. Imaging: MRI APR 26 2022. VILLALTA DENISITY TEST BY ARABELLA FELDMAN CNP. PMH/Recent major surgery: OSTEOPOROSIS, ASTHMA, ALLERGIES, R ROTATOR REPAIR, DEPRESSION, REFLUX. OTHER: PATIENT REPORTS SHE WAS ONLY ABLE TO DO ABOUT 2 AQUATIC THERAPY SESSIONS BEFORE GETTING SICK. STATES SHE GOT REALLY CHILLED GETTING OUT OF THE POOL AND WANTS TO DO LAND THIS TIME. STATES HER DOCTOR REALLY WANTS HER TO DO PT. PATENT REPORTS SHE IS GOING MEDICINE FOR HER OSTEOPOROSIS - INTRAVENOUSLY - PENDING SOON. STATES HER BONE DENSITY SHOWED WORSENING FROM LAST TEST TO THIS ONE. PATIENT REPORTS SHE DOES NOT EX BUT USE TO WALK DAILY 20-30 MINUTES OUTSIDE WHEN WEATHER WAS GOOD. - Objective Sitting/Standing Posture: POOR. FH. RSH'S. INCREASED KYPHOSIS. NO RELEVENT LATERAL SHIFT. Active Correction of posture: WORSE. Other Observations: INDEP GAIT INTO PT WITHOUT AD OR LOB. INDEP SIT TO STAND WITHOUT UE ASSIST. Sensory deficit: JODIE LE LIGHT TOUCH SENSATION IS GROSSLY INTACT AND SYMMETRICAL. ROM deficit: JODIE HIP FLEXOR, HS AND CALF TIGHTNESS. JODIE UE ROM WFL BUT ABOUT 25% DEFICIT JODIE SHLD ER. Motor deficit: JODIE UE'S AND LE'S WFL BUT SHLDS GRADED 4-/5 AND HIPS 4/5. Dural Signs: POSITIVE JODIE LE'S L > R. Lumbar mvmt loss: flex - NIL. ext - JAISON R SG - JAISON L SG - JAISON. PATIENT DENIES INCRASED PAIN IN UPPER, MIDDLE AND LOWER BACK WITH LUMBAR ROM TESTING ALL PLANES TODAY. THORACIC MVMT LOSS: R ROT- MOD. L ROT - MOD. PATIENT DENIES INCREASED MID BACK PAIN WITH JODIE THORACIC ROTATION TESTING. PALPATION: MILD MID THORACIC AND JODIE THORACIC PARASPINAL TENDERNESS WITH LIGHT PALPATION TODAY. NO TENDERNESS WITH LIGHT RIB PALPAATION. Core strength: POOR. TREATMENT: INSTRUCTED PATIENT IN WALKING PROGRAM WHEN ABLE OUTSIDE OR ON TREADMIL. - Balance/Special Test Scores Oswestry Low Back Score: 14 30 Second Chair Rise Test Seconds: 6 - Goals Goal 1:: DECREASE C/O MID BACK AND RIB AREA PAIN Goal Time Frame: 4-6 Weeks Goal 2:: IMPROVE PERSONAL CARE, LIFTING, WALKING, STANDING, TRAVEL AND HOMEMAKING FUNCTION Goal Time Frame: 4-6 Weeks Goal 3:: INSTRUCT IN PROPHYLAXIS Goal Time Frame: 4-6 Weeks - Anticipated Interventions Patient/Client Instruction: Educate patient on: Condition, Plan of Care, Risk Factors For the Purpose of:: To improve self management Therapeutic Exercise to Include: Strength training, Body mechanics, Postural training, Flexibilty training, Neuromotor development, In an aquatic setting, Dynamic Lumbar Stabilization For the Purpose of:: To decrease pain, To increase ROM, To improve muscle performance and motor function, To increase tolerance to acti vity/condition/position, To improve ability of physical actions for home/community/work/leisure Thank you for the opportunity to evaluate your patient. For Medicare and Medicare HMO plans, please review the plan of care and approve it. It will need to be FAXED BACK to us at [phone] for Medicare purposes. For Medicare only, by signing this I certify the plan of care. Please let me know if there are questions or concerns regarding this plan of care. Physician Signature: Date:
--- NOTE | 2022-07-20 14:45 | HP.PT.NRP ---
MANOLO URIBE was seen in my office for initial evaluation on 06/05/22. The following Plan of Care was established for this patient: Initial Frequency: 2-3x /Week Initial Duration: 4-6 Weeks Patient/Client Instruction: Educate patient on: Condition, Plan of Care, Risk Factors For the Purpose of:: To improve self management Therapeutic Exercise to Include: Strength training, Body mechanics, Postural training, Flexibilty training, Neuromotor development, In an aquatic setting, Dynamic Lumbar Stabilization For the Purpose of:: To decrease pain, To increase ROM, To improve muscle performance and motor function, To increase tolerance to activity/condition/position, To improve ability of physical actions for home/community/work/leisure This patient was last seen in our office 06/19/22. Pertinent comments regarding their Physical therapy will appear below: This patient has not returned to Physical Therapy and is appropriate to return to MD for further follow-up as needed. At this point I will be discontinuing this patient from physical therapy. I would be happy to see this patient again in the future if found appropriate by the physician. Thank you! Kylah Jones, PT, Cert MDT Balance/Gait/Functional tests - Balance/Special Test Scores Oswestry Low Back Score: 14 30 Second Chair Rise Test Seconds: 6
--- NOTE | 2022-07-26 08:32 | HP.PTREVAL_ITS ---
Dr. Fidel Orozco MD, It has been my pleasure to treat MANOLO URIBE over the last 6 visits for OSTEOPOROSIS, LUMBAR RADICULITIS, STENOSIS AND SPONDYLOSIS. Please see the progress note below for an update on the physical therapy plan of care! Subjective: PATIENT REPORTS SHE WASN'T RECOVERING VERY WELL FROM FLARE UP AFTER WORKING AT [id number]. PATIENT REPORTS EVERYTHING IN THERAPY WAS FEELING GOOD AND HELPFUL UNTIL THE FLARE UP. PATIENT REPORTS FOLLOW UP WITH DR. GEREN WITH R SIDE PAIN AND HAD NERVE BLOCK June WITH BENEFIT. June FOLLOW UP WITH DR. GREEN - TOLD HER TO RESUME PT. STATES SHE DID HAVE THE intravenous TREATMENT FOR OSTEOPOROSIS AT [facility] 06/09/22. Objective/Function: PATIENT WAS SEEN TODAY FOR RE-ASSESSMENT OF PROGRESS TOWARD THE SET PT GOALS AND THE NEED FOR FURTHER PHYSICAL THERAPY VS READINESS FOR DISCHARGE. UPON EXAM TODAY PATIENT APPEARS TO BE A GOOD CANDIDATE TO RESUME PT. INDEP GAIT INTO PT WITHOUT AD OR LOB. INDEP SIT TO STAND WITHOUT UE ASSIST. Sensory deficit: JODIE LE LIGHT TOUCH SENSATION IS GROSSLY INTACT AND SYMMETRICAL. ROM deficit: JODIE HIP FLEXOR, HS AND CALF TIGHTNESS. JODIE UE ROM WFL BUT ABOUT 25% DEFICIT JODIE SHLD ER. Motor deficit: JODIE UE'S AND LE'S WFL BUT SHLDS GRADED 4-/5 AND HIPS 4/5. Dural Signs: POSITIVE JODIE LE'S L > R. Lumbar mvmt loss: flex - NIL. ext - JAISON R SG - JAISON L SG - JAISON. PATIENT C/O SLIGHT INCRASED PAIN IN MIDDLE BACK WITH THORACIC/LUMBAR ROM TESTING ALL PLANES TODAY. THORACIC MVMT LOSS: R ROT- MOD. L ROT - MOD. PALPATION: MILD MID THORACIC AND JODIE THORACIC PARASPINAL TENDERNESS WITH LIGHT PALPATION TODAY. Core strength: POOR Plan Plan: *VERY OSTEOPOROTIC WITH 2 RECENT VERTEBRAL FX'S AND VERTEBRALPLASTY PROCEEDURES*. RESUME PT 2-3 TIMES A WK X 9-10 VISITS. PATIENT AGREEABLE. POSTURE CORRECTION/STRENGTHENING, INSTRUCTION IN APPROPRIATE BODY MECHANICS AND ACTIVITY MODIFICATIONS. DLS STARTING WITH A NEUTRAL SPINE PROGRESSING ROM TOLERATED. JODIE UE AND LE ROM, STRETCHING AND STRENGTHENING. HEP INSTRUCTION. Balance/Gait/Functional tests - Balance/Special Test Scores Oswestry Low Back Score: 12 30 Second Chair Rise Test Seconds: 5 Goals Goal 1:: DECREASE C/O MID BACK AND RIB AREA PAIN Goal Time Frame: 4-6 Weeks Goal 2:: IMPROVE PERSONAL CARE, LIFTING, WALKING, STANDING, TRAVEL AND HOMEMAKING FUNCTION Goal Time Frame: 4-6 Weeks Goal 3:: INSTRUCT IN PROPHYLAXIS Goal Time Frame: 4-6 Weeks Anticipated Interventions Patient/Client Instruction: Educate patient on: Condition, Plan of Care, Risk Factors For the Purpose of:: To improve self management Therapeutic Exercise to Include: Strength training, Body mechanics, Postural training, Flexibilty training, Neuromotor development, In an aquatic setting, Dynamic Lumbar Stabilization For the Purpose of:: To decrease pain, To increase ROM, To improve muscle performance and motor function, To increase tolerance to activity/condition/position, To improve ability of physical actions for home/community/work/leisure Please do not hesitate to contact me at [phone] by phone or if you have questions or concerns regarding this new plan of care! Sincerely, Kylah Jones PT, Cert MDT
--- NOTE | 2022-08-23 09:29 | HP.PTDCSUM ---
It has been my pleasure to treat MANOLO URIBE referred by Dr. Fidel Orozco MD, with the diagnosis of OSTEOPOROSIS, LUMBAR RADICULITIS, STENOSIS AND SPONDYLOSIS for a total of 9 visit(s). Discharge Date: Please see the following information for a summary of their discharge status. Subjective: THE EX'S FEEL REALLY GOOD TODAY AND I AM PLANNING TO KEEP THEM GOING AT HOME. BENDING AND LIGHT LIFTING IS DEFINATELY BETTER. THINGS LIKE LIFTING LAUNDRY BASKETS IS BETTER. PATIENT REPORTS SHE IS REALLY GRATEFUL FOR EVERYTHING SHE HAS BEEN TAUGHT. FOLLOW UP WITH DR. GREEN PENDING SUNDAY. Bilateral Back Pain Intensity (Out of 10): 1 % Improvement: 95 Objective/Function: PATIENT WAS SEEN TODAY FOR RE-ASSESSMENT OF PROGRESS TOWARD THE SET PT GOALS AND THE NEED FOR FURTHER PHYSICAL THERAPY VS READINESS FOR DISCHARGE. ALL GOALS HAVE BEEN MET AND PATIENT IS APPROPRIATE FOR DISCHARGE TO [facility]. PATIENT IS AGREEABLE. UPON EXAM TODAY: INDEP GAIT INTO PT WITHOUT AD OR LOB. INDEP SIT TO STAND WITHOUT UE ASSIST. Sensory deficit: JODIE LE LIGHT TOUCH SENSATION IS GROSSLY INTACT AND SYMMETRICAL. ROM deficit: JODIE HIP FLEXOR, HS AND CALF TIGHTNESS. JODIE UE ROM WFL BUT ABOUT 25% DEFICIT JODIE SHLD ER. Motor deficit: JODIE UE'S AND LE'S WFL BUT SHLDS GRADED 4-/5 AND HIPS 4/5. Dural Signs: NEGATIVE JODIE LE'S. Lumbar mvmt loss: flex - NIL. ext - JAISON R SG - JAISON L SG - JAISON. PATIENT DENIES PAIN WITH ROM TESTING TODAY. THORACIC MVMT LOSS: R ROT- MOD. L ROT - MOD. AGAIN PATIENT DENIES PAIN WITH THORACIC ROM TESTING. PALPATION: NO C/O TENDERNESS WITH PALPATION OF LUMBAR OR THORACIC SPINE TODAY. Goal 1:: DECREASE C/O MID BACK AND RIB AREA PAIN Goal Progress: Goal Met Goal 2:: IMPROVE PERSONAL CARE, LIFTING, WALKING, STANDING, TRAVEL AND HOMEMAKING FUNCTION Goal Progress: Goal Met Goal 3:: INSTRUCT IN PROPHYLAXIS Goal Progress: Goal Met Plan: D/C TO [facility]. PATIENT AGREEABLE. If there are questions or concerns regarding this patient's physical therapy, please feel free to call me at [phone]. Thank you for the referral of this patient. Sincerely, Kylah Jones, PT, Cert MDT Balance/Gait/Functional tests - Balance/Special Test Scores Oswestry Low Back Score: 8 30 Second Chair Rise Test Seconds: 8
== END 2022-08-23 19:00 | disposition home or self-care (01) ==
LOC: PT 09:00
PROVIDERS: PCP Nurse Practitioner Family; Referring Provider Anesthesiology Pain Medicine; Visit Provider Anesthesiology Pain Medicine
DX: M51.37 Other intervertebral disc degeneration, lumbosacral region (principal); M48.07 Spinal stenosis, lumbosacral region; M47.27 Other spondylosis with radiculopathy, lumbosacral region
CPT/HCPCS: 97110; 97162; 97164

== ENCOUNTER 2022-09-29 13:06 | Emergency (ER) | payer MEDICARE, OTHER, SELFPAY ==
[2022-09-29 13:07] VITALS: BP 141/63; PULSE 69; RESP 16; TEMP 36.6; O2SAT 97; BMI 25.0
[2022-09-29 14:03] VITALS: PULSE 71; O2SAT 98
[2022-09-29 14:27] VITALS: BP 126/64; PULSE 70; RESP 20; O2SAT 100
--- NOTE | 2022-09-29 14:29 | EKG12_ITS ---
Test Reason : SOB Blood Pressure : / mmHG Vent. Rate : 066 BPM Atrial Rate : 066 BPM P-R Int : 152 ms QRS Dur : 090 ms QT Int : 428 ms P-R-T Axes : 064 005 030 degrees QTc Int : 448 ms Normal sinus rhythm Normal ECG Confirmed by MATILDE WARD, TAMMIE ([id number]), photo editor NINA SAMPSON ([id number]) on 10/02/2022 1:37:34 PM Referred By: Confirmed By:TAMMIE CLAYTON MD
--- NOTE | 2022-09-29 14:36 | EDS_ITS ---
HPI <UNA Orlando - Last Filed: 09/29/22 17:32> History of Present Illness Chief Complaint: Shortness of Breath Narrative Narrative: Patient presenting today with shortness of breath on exertion that she has had for the last several days. She reports a history of asthma and feels like her chest is tight when she tries to take a deep breath or cough. She did a nebulized breathing treatment before arrival and reports that it did help her symptoms. She denies any fever, chills, chest pain. PFS <UNA Orlando - Last Filed: 09/29/22 17:32> [facility] Medical History Age related osteoporosis Asthma Constipation Former smoker GERD (gastroesophageal reflux disease) Nodule of middle lobe of right lung PVD (peripheral vascular disease) Home Medications albuterol sulfate 90 mcg/actuation aerosol inhaler (ProAir HFA) 1 - 2 puff inhalation Q4H PRN PRN Wheezing 09/09/13 [History Last Taken 11/04/14 08:00 1 PUFF] buspirone 5 mg tablet 5 mg PO DAILY PRN PRN Anxiety 09/09/13 [History Last Taken 11/04/14 17:00 5 MG] escitalopram oxalate 5 mg tablet (Lexapro) 5 mg PO DAILY 04/22/15 [History Last Taken Unknown] fluticasone furoate 100 mcg-vilanterol 25 mcg/dose inhalation powder (Breo Ellipta) 1 ea IH DAILY 08/03/17 [History Last Taken Unknown] azithromycin 250 mg tablet See Rx Instructions PO .COMPLEX #6 tabs 08/18/22 [Rx Last Taken Unknown] benzonatate 100 mg capsule 200 mg PO TID PRN cough #30 caps 08/18/22 [Rx Last Taken Unknown] benzonatate 200 mg capsule 200 mg PO TID PRN 08/18/22 [History Last Taken Unknown] cetirizine 10 mg capsule (Zyrtec) 10 mg PO DAILY PRN 08/18/22 [History Last Taken Unknown] guaifenesin 600 mg tablet, extended release 12 hr (Mucinex) 600 mg PO Q12H PRN 08/18/22 [History Last Taken Unknown] omeprazole 20 mg capsule,delayed release 20 mg PO DAILY 08/18/22 [History Last Taken Unknown] budesonide 0.5 mg/2 mL suspension for nebulization 0.5 mg (2 mL) inhalation BID #60 mL 09/29/22 [Rx Last Taken Unknown] Allergy/AdvReac Type Severity Reaction Status Date / Time lansoprazole [From Prevacid] Allergy Swelling Verified 09/29/22 13:09 meloxicam AdvReac Other Verified 09/29/22 13:09 Surgical History History of cholecystectomy Social History Smoking Status: Former smoker substance use type: does not use ROS <UNA Orlando - Last Filed: 09/29/22 17:32> ROS ED Constitutional Constitutional ED: Denies chills or fever(s) ENT ENT ED: Denies rhinorrhea or sore throat Cardiovascular Cardiovascular: Denies chest pain Respiratory/Chest Respiratory/Chest: Reports dyspnea on exertion and wheezing; Denies cough or tachypnea Gastrointestinal Gastrointestinal: Denies abdominal pain, constipation, diarrhea, nausea or vomiting Musculoskeletal Musculoskeletal: Denies arthralgias or myalgias Integumentary Denies abscess, Abrasions or rash Neurologic Neurologic: Denies weakness EXAM <UNA Orlando - Last Filed: 09/29/22 17:32> Physical Exam Const Vital Signs: 09/29/22 13:07 09/29/22 14:03 09/29/22 14:27 Temperature 98 F Temperature Source Temporal Pulse Rate 69 71 Respiratory Rate 16 Respiratory Effort Normal Non-Labored Respiratory Depth Normal Respiratory Pattern Normal Blood Pressure 141/63 H Blood Pressure Mean 89 Pulse Ox 97 98 Oxygen Delivery Method Room Air Room Air 09/29/22 14:27 09/29/22 14:50 09/29/22 16:03 Temperature Temperature Source Pulse Rate 70 70 Respiratory Rate 20 H 18 Respiratory Effort Respiratory Depth Respiratory Pattern Blood Pressure 126/64 H Blood Pressure Mean 84 Pulse Ox 100 95 Oxygen Delivery Method Room Air Room Air Positive well nourished, well developed and no apparent distress General Appearance ED: well developed HEENT Reports normocephalic and head/scalp atraumatic Mouth ED: Yes moist mucous membranes normal Eyes PERRL and EOMs intact bilaterally Neck full ROM and supple Chest Wall inspection of chest normal Resp normal respiratory effort and clear to auscultation bilaterally Cardio regular rate and regular rhythm GI soft to palpation, non-tender, non-distended and no masses Back/Spine normal ROM and normal to inspection Extremity normal to inspection and full ROM Neuro oriented x3, CN's II-XII intact bilaterally, moves all extremities, no focal motor deficits and no sensory deficits noted Sensorium / Orientation: awake and alert Psych mental status grossly normal and thought process normal Skin no rashes or lesions noted and no wounds <Dr. Josh Dwyer DO - Last Filed: 09/29/22 22:31> Physical Exam Const Vital Signs: 09/29/22 13:07 09/29/22 14:03 09/29/22 14:27 Temperature 98 F Temperature Source Temporal Pulse Rate 69 71 Respiratory Rate 16 Respiratory Effort Normal Non-Labored Respiratory Depth Normal Respiratory Pattern Normal Blood Pressure 141/63 H Blood Pressure Mean 89 Pulse Ox 97 98 Oxygen Delivery Method Room Air Room Air 09/29/22 14:27 09/29/22 14:50 09/29/22 16:03 Temperature Temperature Source Pulse Rate 70 70 Respiratory Rate 20 H 18 Respiratory Effort Respiratory Depth Respiratory Pattern Blood Pressure 126/64 H Blood Pressure Mean 84 Pulse Ox 100 95 Oxygen Delivery Method Room Air Room Air [facility] <UNA Orlando - Last Filed: 09/29/22 17:32> [employer] Narrative Medical decision making narrative: Patient presenting with shortness of breath on exertion she had for the past few days and chest tightness when taking a deep breath or coughing. She does have a history of asthma and thinks that she is having an asthma exacerbation. This does sound consistent with an asthma exacerbation. However, labs to be obtained to rule out leukocytosis, anemia, electrolyte abnormality, ACS. EKG is normal sinus rhythm, troponin WNL. Chest x-ray obtained to rule out pneumonia and is negative for any acute findings. She has a WBC of 11.4, anion gap of 2, otherwise labs are unremarkable. I am not hearing any wheezing in her lungs, they are clear to auscultation. She has been given a DuoNeb here and reports improvement in her symptoms. Overall, vitals are unremarkable, she is 97% on room air. She is not actively short of breath here. She was using budenoside in her nebulizer and reports that it helps her symptoms but recently ran out of it, I will give her a refill for this. She will be discharged home in stable condition and is to follow-up with her PCP. She is comfortable with plan. Lab Data Attestation: I reviewed the patient's lab results. Labs: Laboratory Results - last 24 hr 09/29/22 09/29/22 14:40 14:40 WBC 11.4 H RBC 4.69 Hgb 14.1 Hct 43.7 MCV 93.2 MCH 30.1 MCHC 32.3 RDW Std Deviation 44.7 H RDW Coeff of Corinne 13.1 Plt Count 248 MPV 10.3 Immature Gran % (Auto) 0.600 Neut % (Auto) 85.5 H Lymph % (Auto) 11.8 L Traverse % (Auto) 1.8 Eos % (Auto) 0.0 Baso % (Auto) 0.3 Absolute Neuts (auto) 9.8 H Absolute Lymphs (auto) 1.34 Nucleated RBC % 0 Sodium 139 Potassium 4.5 Chloride 109 H Carbon Dioxide 28.0 Anion Gap 2 L BUN 15 Creatinine 0.97 Estim Creat Clear Calc 39.63 Est GFR (MDRD) Af Amer 72 Est GFR (MDRD) Non-Af 60 BUN/Creatinine Ratio 15.5 Glucose 119 H Calcium 9.3 Troponin I High Sens 5 Radiography Chest X-Ray - ED: Read by ED Physician and Read by Radiologist Diagnostic Testing: Clinical Impression(s) from Imaging Studies Chest X-Ray 09/29/22 15:25 IMPRESSION: Degenerative changes, as described above. No demonstrated acute cardiopulmonary process. Electronically Signed: Abdirizak Cooper MD at 16:04 EDT , EKG Initial EKG: Comments: 66 bpm, normal sinus rhythm, no ST elevation or signs of cardiac ischemia. Reviewed and interpreted by attending ED physician. <Dr. Josh Dwyer, DO - Last Filed: 09/29/22 22:31> [facility] Lab Data Labs: Laboratory Results - last 24 hr 09/29/22 09/29/22 14:40 14:40 WBC 11.4 H RBC 4.69 Hgb 14.1 Hct 43.7 MCV 93.2 MCH 30.1 MCHC 32.3 RDW Std Deviation 44.7 H RDW Coeff of Corinne 13.1 Plt Count 248 MPV 10.3 Immature Gran % (Auto) 0.600 Neut % (Auto) 85.5 H Lymph % (Auto) 11.8 L Traverse % (Auto) 1.8 Eos % (Auto) 0.0 Baso % (Auto) 0.3 Absolute Neuts (auto) 9.8 H Absolute Lymphs (auto) 1.34 Nucleated RBC % 0 Sodium 139 Potassium 4.5 Chloride 109 H Carbon Dioxide 28.0 Anion Gap 2 L BUN 15 Creatinine 0.97 Estim Creat Clear Calc 39.63 Est GFR (MDRD) Af Amer 72 Est GFR (MDRD) Non-Af 60 BUN/Creatinine Ratio 15.5 Glucose 119 H Calcium 9.3 Troponin I High Sens 5 Radiography Diagnostic Testing: Clinical Impression(s) from Imaging Studies Chest X-Ray 09/29/22 15:25 IMPRESSION: Degenerative changes, as described above. No demonstrated acute cardiopulmonary process. Electronically Signed: Abdirizak Cooper MD at 16:04 EDT , Treatment and Re-Evaluation :: I have personally performed a face to face assessment of the patient and have reviewed the DONIS Note. I performed a substantive portion of the visit including all aspects of the following. My ledezma findings include: History: Patient presents with exacerbation of her asthma that became worse today. Patient states she has a history of asthma. Patient states this feels similar to prior asthma exacerbations. Patient denies any cough or fevers. Patient denies any chest pain. Patient denies any nausea or vomiting. Exam: Vital signs are stable. Patient is afebrile. Patient is in no acute distress. Oral mucosa is pink and moist. Neck is supple. Trachea is midline. There is no JVD. Heart was regular rate and rhythm. Lungs showed a few scattered wheezes. There is good respiratory effort noted. Abdomen is soft. Bowel sounds are normal. There is no tenderness. Cranial nerves II through XII are intact. There are no focal motor or sensory deficits noted. Medical Decision Making: Differential diagnosis includes asthma exacerbation, viral upper respiratory infection, bronchitis, pneumonia, cardiac dysrhythmia, cardiac ischemia. Patient was given a DuoNeb aerosol here. CBC will be obtained to assess for leukocytosis and anemia. Basic metabolic profile will be obtained to assess for electrolyte abnormality and renal function. High- sensitivity troponin will be obtained to assess for cardiac ischemia. Chest x- ray will be obtained to assess for pneumonia. EKG will be obtained to assess for cardiac dysrhythmia and cardiac ischemia. CBC was reviewed and shows a slight leukocytosis of 11.4. Basic metabolic profile was reviewed and was essentially within normal limits. High-sensitivity troponin was reviewed and was normal at 5. PA and lateral chest x-ray was obtained. There are 2 views. On my independent interpretation, lung anderson are clear. There is normal cardiac silhouette. Bony thorax is normal. There is no acute process noted. Radiologist also interpreted the x-ray and agrees. EKG was obtained. On my independent interpretation, it showed a normal sinus rhythm. [place] interval, QRS interval, and QTc intervals were all normal. [place] was normal. There are no acute ST or T wave changes. Patient was advised of her findings today as originally was feeling better after DuoNeb aerosol. Patient was requesting prescription for budesonide inhaler. Patient was advised not a rescue inhaler. Patient was given a prescription for budesonide inhaler. Patient was instructed to continue her albuterol as needed as a rescue inhaler. Patient was instructed to follow-up with her primary care physician in 5 to 7 days. Patient understood and was agreeable with the plan. All questions were answered. Discharge Plan Triage Chief Complaint: Shortness of Breath ED Midlevel Provider: Janee Cota ED Provider: Josh Dwyer Dx/Rx/DC Orders Prescriptions: No Action benzonatate 200 mg capsule 200 mg PO TID PRN Label Comments: TAKE 1 CAPSULE BY MOUTH THREE TIMES DAILY NEEDED omeprazole 20 mg capsule,delayed release(DR/EC) 20 mg PO DAILY guaifenesin [Mucinex] 600 mg tablet extended release 12hr 600 mg PO Q12H PRN Zyrtec 10 mg capsule 10 mg PO DAILY PRN azithromycin 250 mg tablet See Rx Instructions PO .COMPLEX Qty: 6 0RF Rx Instructions: take 500 mg today (day 1), then 250 mg for 4 days (days 2-5) PO benzonatate 100 mg capsule 200 mg PO TID PRN (Reason: cough) Qty: 30 0RF buspirone 5 MG tablet 5 mg PO DAILY PRN PRN (Reason: Anxiety) Label Comments: depression albuterol sulfate [ProAir HFA] 1 PUFF inhaler 1 - 2 puff inhalation Q4H PRN PRN (Reason: Wheezing) Label Comments: breathing escitalopram oxalate [Lexapro] 5 MG tablet 5 mg PO DAILY Label Comments: mental health fluticasone furoate-vilanterol [Breo Ellipta] 1 EACH blister with device 1 ea IH DAILY Primary Care Provider: Elma White Referrals: Elma White, [employer] [Primary Care Provider] -
[2022-09-29] MEDS: Ipratropium/Albuterol Sulfate 3 ML AMPUL.NEB INHALATION (14:47)
[2022-09-29 14:50] VITALS: PULSE 70; RESP 18
[2022-09-29 14:55] LABS: Absolute Lymphocyte Count 1.34 X10^3/uL (0.83-4.51); Absolute Neutrophil Count 9.8 X10^3/uL (2.0-7.7); Basophil# 0.03 X10^3/uL; Basophil% 0.3 % (0-1); Hematocrit 43.7 % (37-47); Hemoglobin 14.1 g/dL (12.0-15.0); Lymphocyte # 1.34 X10^3/ul (0.83-4.51); Lymphocyte % 11.8 % (19-41); Mean Corp Hgb Conc 32.3 g/dL (32-36); Mean Corpuscular Hgb 30.1 pg (27.0-32.0); Mean Corpuscular Volume 93.2 fL (81-99); Mean Platelet Vol. 10.3 fl (6.2-12.0); Monocyte# 0.21 X10^3/uL; Monocyte% 1.8 % (0-10); NRBC Flagged by Analyzer 0 % (0-5); Neutrophil # 9.75 X10^3/uL (2.7-7.7); Neutrophil % 85.5 % (47-70); Platelet Count 248 K/mm3 (150-450); RBC Distribution Width CV 13.1 % (11.6-14.6); RBC Distribution Width SD 44.7 fl (35.1-43.9); Red Blood Count 4.69 M/mm3 (4.2-5.4); White Blood Count 11.4 K/mm3 (4.4-11.0)
[2022-09-29 15:14] LABS: Anion Gap 2 (5-15); BUN 15 mg/dL (7-18); BUN/Creat Ratio 15.5 RATIO (10-20); Calcium,Total 9.3 mg/dL (8.5-10.1); Chloride 109 mmol/L (98-107); Creatinine, Serum 0.97 mg/dL (0.55-1.02); EST Glomerular Filtration Rate 60 mL/min (>60); Est Glom Filt Rate - Afr Amer 72 mL/min (>60); Estimated Creatinine Clearance 39.63 ml/min; Glucose 119 mg/dL (74-106); Potassium 4.5 mmol/L (3.5-5.1); Sodium Level 139 mmol/L (136-145); Troponin-I HS 5 pg/mL (3.0-54.0)
--- NOTE | 2022-09-29 15:25 | RAD_ITS ---
STUDY: X-RAY CHEST REASON FOR EXAM: Female, 76 years old. shortness of breath TECHNIQUE: PA and lateral views of the chest. COMPARISON: March 20, 2022 FINDINGS: No visualized consolidation or pneumonic infiltrates. There are interstitial fibrotic changes of the lungs. There is no demonstrated pleural abnormality. Normal size heart. There are calcified mediastinal lymph nodes. Normal visualized pulmonary arteries. There is atherosclerotic calcification of the aortic arch with tortuosity. There are diffuse degenerative changes of the visualized thoracic spine. Normal visualized ribs, clavicles, and shoulders. There is no demonstrated abnormality of the visualized soft tissue structures of the upper abdomen. RAD/Chest PA and Lateral IMPRESSION: Degenerative changes, as described above. No demonstrated acute cardiopulmonary process. Electronically Signed: Abdirizak Cooper MD at 16:04 EDT ,
[2022-09-29 16:03] VITALS: O2SAT 95
== END 2022-09-29 16:20 | disposition home or self-care (01) ==
PROVIDERS: Physician Assistant; Emergency Provider Emergency Medicine; PCP Nurse Practitioner Family; Visit Provider Emergency Medicine
DX: R06.02 Shortness of breath (principal); Z87.891 Personal history of nicotine dependence; J45.909 Unspecified asthma, uncomplicated; Z79.899 Other long term (current) drug therapy; Z79.51 Long term (current) use of inhaled steroids; K21.9 Gastro-esophageal reflux disease without esophagitis; Z90.49 Acquired absence of other specified parts of digestive tract
CPT/HCPCS: 71046; 80048; 84484; 85025; 93005; 94640; 99283; A4216

== ENCOUNTER → 2023-05-14 | Outpatient (CLI) | payer MEDICARE, OTHER, SELFPAY ==
[2023-05-14 08:39] LABS: Absolute Lymphocyte Count 2.83 X10^3/uL (0.83-4.51); Absolute Neutrophil Count 6.6 X10^3/uL (2.0-7.7); Basophil# 0.04 X10^3/uL; Basophil% 0.4 % (0-1); Eosinophil# 0.16 X10^3/uL; Eosinophils% 1.5 % (0-5); Hemoglobin 13.6 g/dL (12.0-15.0); Lymphocyte # 2.83 X10^3/ul (0.83-4.51); Lymphocyte % 26.4 % (19-41); Mean Corp Hgb Conc 32.4 g/dL (32-36); Mean Corpuscular Hgb 30.2 pg (27.0-32.0); Mean Corpuscular Volume 93.1 fL (81-99); Mean Platelet Vol. 10.2 fl (6.2-12.0); Monocyte# 1.05 X10^3/uL; Monocyte% 9.8 % (0-10); NRBC Flagged by Analyzer 0 % (0-5); Neutrophil # 6.57 X10^3/uL (2.7-7.7); Neutrophil % 61.3 % (47-70); Platelet Count 241 K/mm3 (150-450); RBC Distribution Width CV 12.8 % (11.6-14.6); RBC Distribution Width SD 43.6 fl (35.1-43.9); Red Blood Count 4.51 M/mm3 (4.2-5.4); White Blood Count 10.7 K/mm3 (4.4-11.0)
[2023-05-14 08:42] LABS: Color, Urine Yellow (Yellow); Glucose, Dipstick Normal (Normal); Ketone-Dipstick Negative (Negative); Leukocyte Esterase-Dipstick 500 /ul (Negative); Nitrite-Dipstick Negative (Negative); Occult Blood-Urine 10 /ul (Negative); Protein-Dipstick 30 mg/dl (Negative); Urine Bilirubin Dipstick Negative (Negative); Urine Clarity Clear (Clear); Urine Urobilinogen 1 mg/dl (Normal)
[2023-05-14 09:04] LABS: Vitamin D,25 Hydroxy 59.1 ng/mL
[2023-05-14 09:17] LABS: ALB/GLOB Ratio 0.9 RATIO (0.9-2.4); AST(SGOT) 19 U/L (15-37); Alanine Aminotransfer ALT/SGPT 25 U/L (13-56); Albumin, Serum 3.4 g/dL (3.2-5.0); Alkaline Phosphatase 70 U/L (45-117); Anion Gap 4 (5-15); BUN 14 mg/dL (7-18); BUN/Creat Ratio 14.4 RATIO (10-20); Calcium,Total 9.2 mg/dL (8.5-10.1); Chloride 107 mmol/L (98-107); Cholesterol 216 mg/dL (200); Creatinine, Serum 0.97 mg/dL (0.55-1.02); EST Glomerular Filtration Rate 59 mL/min (>60); Est Glom Filt Rate - Afr Amer 72 mL/min (>60); Globulin 3.7 g/dL (2.2-4.2); Glucose 84 mg/dL (74-106); High Density Lipoprotein 68 mg/dL; Potassium 4.3 mmol/L (3.5-5.1); Protein, Total 7.1 g/dL (6.4-8.2); Sodium Level 139 mmol/L (136-145); Triglycerides 102 mg/dL; Very Low Density Lipoprotein 20 mg/dL (5-40)
== END | disposition home or self-care (01) ==
LOC: LAB 07:58
PROVIDERS: PCP Nurse Practitioner Family; Referring Provider Nurse Practitioner Family; Visit Provider Nurse Practitioner Family
DX: E78.00 Pure hypercholesterolemia, unspecified (principal); N18.31 Chronic kidney disease, stage 3a; J45.909 Unspecified asthma, uncomplicated
CPT/HCPCS: 36415; 80053; 80061; 81002; 82306; 85025

== ENCOUNTER → 2023-06-04 | Outpatient (CLI) | payer MEDICARE, OTHER, SELFPAY | END | disposition home or self-care (01) | LOC: LABSPEC 16:19 | PROVIDERS: PCP Nurse Practitioner Family; Referring Provider Urology; Visit Provider Urology | DX: R30.0 Dysuria (principal) | CPT/HCPCS: 87086; 87088 ==

== ENCOUNTER 2023-06-15 08:24 | Outpatient (CLI) | payer MEDICARE, OTHER, SELFPAY ==
[2023-06-15 08:31] VITALS: BP 112/52; PULSE 63; RESP 16; TEMP 36; O2SAT 99; BMI 24.7
[2023-06-15] MEDS: Zoledronic Acid 5 MG 100 ML 300 MG IV (08:39)
[2023-06-15] MEDS: 0.9% NaCl Peripheral Flush Adult/Peds IV (08:39)
[2023-06-15 09:03] VITALS: BP 116/44; PULSE 60; RESP 16
== END 2023-06-15 08:25 | disposition home or self-care (01) ==
LOC: MEDOUTP 08:24
PROVIDERS: PCP Nurse Practitioner Family; Referring Provider Nurse Practitioner Family; Visit Provider Nurse Practitioner Family
DX: M81.0 Age-related osteoporosis without current pathological fracture (principal)
CPT/HCPCS: 96365; A4216; J3489

== ENCOUNTER → 2023-08-23 | Outpatient (CLI) | payer MEDICARE, OTHER, SELFPAY ==
--- NOTE | 2023-08-23 10:11 | BI_ITS ---
MAMMOGRAPHY - BILATERAL SCREENING REASON FOR EXAM: Female, 77 years old. Routine annual screening examination. PERTINENT HISTORY: Non-contributory. TECHNIQUE: Digital bilateral breast stephen (3D mammographic acquisition) in the CC and MLO projections. 2-D mediolateral oblique (MLO) and craniocaudad (CC) views of both breasts were obtained. CAD: Full Field Digital Mammography with Computer Added Detection was performed. COMPARISON: Comparison is made with prior study July 31, 2022 and May 16, 2021. FINDINGS: Breast Composition: There are scattered areas of fibroglandular density. There are no dominant masses or suspicious calcifications. No other significant abnormalities are identified. There has been no significant change since the prior study. BI/SCRN MAMM (CAD)W/STEPHEN BILAT IMPRESSION: Stable bilateral screening mammogram. Yearly follow-up mammogram recommended. (A) ASSESSMENT CATEGORY: BIRADS Category 1: Negative. A letter regarding these results will be sent to the patient by the facility within 30 days. Approximately 10% of breast cancers are not detected by mammography. A normal mammogram should not delay biopsy of a clinically suspicious abnormality. [id number] Electronically Signed: Ghassan Hercules MD at 13:10 EDT ,
== END | disposition home or self-care (01) ==
LOC: OPBI 10:11
PROVIDERS: PCP Nurse Practitioner Family; Referring Provider Nurse Practitioner Family; Visit Provider Nurse Practitioner Family
DX: Z12.31 Encounter for screening mammogram for malignant neoplasm of breast (principal)
CPT/HCPCS: 77063; 77067

== ENCOUNTER 2023-09-28 13:00 | Outpatient (RCR) | payer MEDICARE, OTHER, SELFPAY ==
--- NOTE | 2023-07-19 10:32 | HP.PTEVAL_ITS ---
Patient's Visit Information Visit Information Visit Information: MANOLO URIBE is a 77 year old F referred to Physical Therapy by Dr. Felecia Beck MD with a diagnosis of CYSTOCELE. Date of Evaluation: 07/19/23 Physical Therapist: Kylah Jones PT, Cert MDT Visit Plan Frequency: 1x/Week Duration: 2-4 Months Plan: PF THERAPY FOR STRENGTHENING AND ENDURANCE TRAINING. URINARY URGE AND FREQUENCY EDUCATION. HEALTHY BLADDER HABIT EDUCATION. TRAINING IN COORDINATION OF PELVIC FLOOR MUSCULATURE WITH HIP AND CORE (TRANSVERSE ABDOMINUS) MUSCULATURE. CORE STRENGTHENING. POSTURE TRAINING. JODIE LE ROM, STRETCHING AND STRENGTHENING. TRAINING IN ABDOMINAL CAVITY PRESSURE MGMT WITH ADL'S. Subjective Subjective: Work/Leisure: RETIRED Present symptoms: BULGING IN VAGINAL AREA AND MILD PRESSURE IN LOWER ABDOMEN. Present since: A FEW MONTHS AGO Pain Scale: DENIES PAIN Is it getting better, worse or staying the same: GETTING BETTER SINCE UTI TREATED WITH ANTIBIOTIC Commenced as a result of: NO APPARENT REASON Symptoms at onset: SORE AND BULGING IN VAGINAL AREA Worse: STAYS THE SAME Better: STAYS THE SAME Disturbed sleep: GETTING UP 2 TO 3 TIMES AT NIGHT TO URINATE. Previous history/Previous treatment: NO SIGNIFICANT PRIOR HISTORY OF UTI. Treatment this episode: DX'D WITH CYSTOCELE, UTI AND HERPES - ANTIBIOTIC AND ANIVIRAL MEDICATIONS. REFERRED TO DR. BECK. REFERRED TO PT BY DR. BECK. Coughing/sneezing: UI ONCE IN AWHILE Gait: NORMAL Bowel Incontinence: PATIENT DENIES Urinary Incontinence: PATIENT REPORTS SHE IS NOT HAVING UI AND NOT WEARING PADS. How long can you delay the need to urinate: ABOUT 30 MIN Prolapse (Falling out feeling): YES Frequency of Urination: EVERY 1.5 TO 2 HOURS Ability to stop urine flow: YES Ability to initiate urine stream: YES Dyspareunia: N/A Accidents: NO Unexplained weight loss: NO Imaging: RECENT US SHOWING GOOD EMPTYING OF BLADDER PER PATIENT REPORT. PMH/Recent major surgery: OSTEOPOROSIS. ASTHMA, L ROTATOR CUFF REPAIR. H/O THORACIC COMPRESSION FX'S - KYPHOPLASTIES. Objective Objective: Sitting/Standing Posture: POOR. FH. RSHL'S. INCREASED KYPHOSIS AND REDUCED LORDOSIS. NO RELEVANT LATERAL SHIFT Active Correction of posture: ABLE TO PARTIALLY CORRECT. UNABLE TO MAINTAIN. C/O BACK PAIN IN SITTING WITHOUT BACK SUPPORT. Other Observations: INDEP GAIT AND TRANSFERS. Sensory deficit: JODIE LE LIGHT TOUCH SENSATION GROSSLY INTACT AND SYMMETRICAL ROM deficit: JODIE LE HS, HIP ADDUCTOR, HIP ROTATOR AND CALF TIGHTNESS Motor deficit: JODIE HIPS 4/5, KNEES 5/5, ANKLES 5/5, PATIENT COMMUNICATES A GOOD UNDERSTANDING OF HOW TO CONTRACT PELVIC FLOOR MUSCLES AND HOLD FOR 10 SEC X 2. PATIENT DENIES PAIN WITH TESTING. Reflexes: 2/3 Dural Signs: NEGATIVE JODIE LE'S. Lumbar mvmt loss: flex - MIN ext - JAISON R SG - JAISON L SG - JAISON Core strength: POOR Palpation: INCREASED MUSCLE TONE JODIE SPINAL PARASPINALS AND THORACIC TENDERNESS. FUNCTIONAL SCREEN: Incontinence Impact Questionnaire Score: 5 Urogenital Distress Inventory Score: 13 Goals Goal 1:: PATIENT WILL DEMONSTRATE/COMMUNICATE 10 CONSISTENT AND CONSECUTIVE 10 SECOND PELVIC FLOOR MUSCLE CONTRACTIONS TO DEMONSTRATE IMPROVED PELVIC FLOOR ENDURANCE. Goal Time Frame: 8-12 Weeks Goal 2:: PATIENT WILL HAVE IMPROVED CORE AND POSTURAL STRENGTH AND HABITS. Goal Time Frame: 8-12 Weeks Goal 3:: PATIENT WILL HAVE INCREASED FLEXIBILITY IN TRUNK AND LE'S Goal Time Frame: 6-8 Weeks Goal 4:: DEVELOP HEALTHY FLUID INTAKE HABITS WITH FLUID INTAKE OF ? BODY WEIGHT IN OUNCES PER DAY AND 2/3 BEING WATER. Goal Time Frame: 2-4 Weeks Goal 5:: NORMALIZE VOIDING FREQUENCEY TO EVERY 3-4 HOURS. Goal Time Frame: 4-6 Weeks Goal 6:: PATIENT WILL BE INDEP WITH A HEP/HOME INSTRUCTIONS FOR CONTINUED IMPROVEMENT ONCE FORMAL PHYSICAL THERAPY CONCLUDES. Goal Time Frame: 8-12 Weeks Rehabilitation Potential Physical Therapy Diagnosis: FREQUENT URINATION. HIP, CORE AND PELVIC FLOOR WEAKNESS. TRUNK AND HIP STIFFNESS. Rehabilitation Potential: Good Anticipated Interventions Patient/Client Instruction: Educate patient on: Condition, Plan of Care and Risk Factors For the Purpose of:: To improve self management Therapeutic Exercise to Include: Strength training, Endurance training, Coordination, Body mechanics, Postural training and Flexibilty training For the Purpose of:: To improve muscle performance and motor function, To increase flexibility/ROM, To improve endurance, To improve health and function and To improve self management Text: Thank you for the opportunity to evaluate your patient. For Medicare and Medicare HMO plans, please review the plan of care and approve it. It will need to be FAXED BACK to us at [phone] for Medicare purposes. For Medicare only, by signing this I certify the plan of care. Please let me know if there are questions or concerns regarding this plan of care. Physician Signature: Date:
--- NOTE | 2023-09-28 13:55 | HP.PTDCSUM_ITS ---
Discharge Summary D/C summary: It has been my pleasure to treat MANOLO URIBE referred by Dr. Felecia Walker MD, with the diagnosis of CYSTOCELE for a total of 10 visit(s). Discharge Date: 09/28/23 Please see the following information for a summary of their discharge status. Subjective Subjective: I HAVEN'T NOTICED THE PRESSURE OR BULGING AT ALL. WHEN I LOOKED THE AREA SEEMS TIGHTER DOWN THERE AND THE BULGING ISN'T OBVIOUS IT WAS BEFORE. PATIENT REPORTS SHE IS VOIDING ABOUT EVERY 3 HOURS OR SO NOW BECAUSE SHE DOESN'T FEEL THE PRESSURE LIKE SHE DID BEFORE. PATIENT REPORTS SHE IS REALLY PLEASED WITH HOW MUCH SHE CAN DO WITH HER BACK NOW WITH OUT PAIN. PATIENT REPORTS SHE HAS OVERCOME HER FEAR OF LYING ON HER BACK TOO AND IT FEELS GOOD. DOING HEP. Overall Improvement % Improvement: 75 Objective Objective/Function: THIS PATIENT HAS DONE GREAT WITH PT. ALL GOALS MET. APPROPRIATE FOR DISCHAGE. DISCHAGE INSTRUCTIONS GIVEN. SHE IS INDEP WITH A HEP AND AGREEABLE TO DISCHARGE. Lumbar mvmt loss: flex - NIL ext - MOD R SG - MOD L SG - MOD Core strength: FAIR FUNCTIONAL SCREEN: Incontinence Impact Questionnaire Score: 0 (5 at eval) Urogenital Distress Inventory Score: 4 (13 at eval) Goals Goal 1:: PATIENT WILL DEMONSTRATE/COMMUNICATE 10 CONSISTENT AND CONSECUTIVE 10 SECOND PELVIC FLOOR MUSCLE CONTRACTIONS TO DEMONSTRATE IMPROVED PELVIC FLOOR ENDURANCE. Goal Progress: Goal Met Goal 2:: PATIENT WILL HAVE IMPROVED CORE AND POSTURAL STRENGTH AND HABITS. Goal Progress: Goal Met Goal 3:: PATIENT WILL HAVE INCREASED FLEXIBILITY IN TRUNK AND LE'S Goal Progress: Goal Met Goal 4:: DEVELOP HEALTHY FLUID INTAKE HABITS WITH FLUID INTAKE OF ? BODY WEIGHT IN OUNCES PER DAY AND 2/3 BEING WATER. Goal Progress: Goal Met Goal 5:: NORMALIZE VOIDING FREQUENCEY TO EVERY 3-4 HOURS. Goal Progress: Goal Met Goal 6:: PATIENT WILL BE INDEP WITH A HEP/HOME INSTRUCTIONS FOR CONTINUED IMPROVEMENT ONCE FORMAL PHYSICAL THERAPY CONCLUDES. Goal Progress: Goal Met Plan Plan: D/C. PATIENT AGREEABLE. D/C Information d/c sentence: If there are questions or concerns regarding this patient's physical therapy, pl ease feel free to call me at [phone]. Thank you for the referral of this patient. Sincerely, Kylah Jones, PT, Cert MDT Balance/Gait/Functional tests Improvement % Improvement: 75
== END 2023-09-28 19:00 | disposition home or self-care (01) ==
LOC: PT 13:00
PROVIDERS: PCP Nurse Practitioner Family; Referring Provider Urology; Visit Provider Urology
DX: N32.89 Other specified disorders of bladder (principal)
CPT/HCPCS: 97162; 97530

== ENCOUNTER → 2023-11-05 | Outpatient (CLI) | payer MEDICARE, OTHER, SELFPAY ==
[2023-11-05 07:23] LABS: Bacteria 0 SEEN /hpf (None Seen); Mucous, Urine 0 SEEN /hpf (<or=2+); Red Blood Cells-Urine 0 SEEN /hpf (0-5)
[2023-11-05 08:13] LABS: Color, Urine Yellow (Yellow); Glucose, Dipstick Normal (Normal); Ketone-Dipstick Negative (Negative); Leukocyte Esterase-Dipstick 100 /ul (Negative); Nitrite-Dipstick Negative (Negative); Occult Blood-Urine Negative /ul (Negative); Protein-Dipstick 15 mg/dl (Negative); Urine Bilirubin Dipstick Negative (Negative); Urine Clarity Sl. Cloudy (Clear); Urine Urobilinogen 1 mg/dl (Normal)
[2023-11-05 08:25] LABS: ALB/GLOB Ratio 0.9 RATIO (0.9-2.4); AST(SGOT) 20 U/L (15-37); Alanine Aminotransfer ALT/SGPT 22 U/L (13-56); Albumin, Serum 3.3 g/dL (3.2-5.0); Alkaline Phosphatase 58 U/L (45-117); Anion Gap 3 (5-15); BUN 18 mg/dL (7-18); BUN/Creat Ratio 18.6 RATIO (10-20); Calcium,Total 8.7 mg/dL (8.5-10.1); Chloride 107 mmol/L (98-107); Cholesterol 202 mg/dL (200); Creatinine, Serum 0.97 mg/dL (0.55-1.02); EST Glomerular Filtration Rate 59 mL/min (>60); Est Glom Filt Rate - Afr Amer 72 mL/min (>60); Globulin 3.7 g/dL (2.2-4.2); Glucose 87 mg/dL (74-106); High Density Lipoprotein 67 mg/dL; Potassium 4.1 mmol/L (3.5-5.1); Sodium Level 138 mmol/L (136-145); Thyroid Stim Hormone (TSH) 2.11 uIU/mL (0.358-3.74); Triglycerides 93 mg/dL; Very Low Density Lipoprotein 19 mg/dL (5-40)
[2023-11-05 08:27] LABS: Squamous Epithelial Cells - UA 0-5 SEEN /hpf (5-10); White Blood Cells 10-25 SEEN /hpf (0-5)
== END | disposition home or self-care (01) ==
LOC: LAB 07:20
PROVIDERS: PCP Nurse Practitioner Family; Referring Provider Nurse Practitioner Family; Visit Provider Nurse Practitioner Family
DX: E78.00 Pure hypercholesterolemia, unspecified (principal); N18.31 Chronic kidney disease, stage 3a; N30.01 Acute cystitis with hematuria
CPT/HCPCS: 36415; 80053; 80061; 81001; 84443

== ENCOUNTER → 2024-01-18 | Outpatient (CLI) | payer MEDICARE, OTHER, SELFPAY ==
[2024-01-18 10:17] LABS: Hepatitis C Antibody Non-Reactive (Nonreactive)
== END | disposition home or self-care (01) ==
LOC: LAB 08:24
PROVIDERS: PCP Nurse Practitioner Family; Referring Provider Nurse Practitioner Family; Visit Provider Nurse Practitioner Family
DX: Z11.59 Encounter for screening for other viral diseases (principal)
CPT/HCPCS: 36415; 86803

== ENCOUNTER 2024-02-16 04:33 | Emergency (ER) | payer MEDICARE, OTHER, SELFPAY ==
[2024-02-16 04:34] VITALS: BP 135/57; PULSE 67; RESP 20; TEMP 36.7; O2SAT 99; BMI 24.5
--- NOTE | 2024-02-16 05:02 | EX.ED.DYSGE1 ---
HPI History of Present Illness Chief Complaint: Syncope Informant: patient, spouse/S.O. and EMS Narrative Narrative: Patient is a 78-year-old female with a past medical history of GERD asthma anxiety and constipation. She states that she ate food she was not supposed to this evening and then her stomach became upset . She states she was sitting on the toilet trying to have a bowel movement when she became lightheaded and had a brief syncopal event. She states that this happens quite often. Her states he gave her Zofran but despite this she has been having persistent nausea and dry heaves. As her symptoms cannot be controlled at home she was brought in for evaluation [facility] Medical History Age related osteoporosis Former smoker Constipation Asthma Nodule of middle lobe of right lung PVD (peripheral vascular disease) GERD (gastroesophageal reflux disease) Home Medications ?Medication ?Instructions ?Recorded ?Last Taken ?Type buspirone 5 mg tablet 5 mg PO DAILY PRN PRN Anxiety 09/09/13 11/04/14 17:00 History 5 MG escitalopram oxalate 5 mg tablet 5 mg PO DAILY 04/22/15 Unknown History (Lexapro) fluticasone furoate 100 1 ea IH DAILY 08/03/17 Unknown History mcg-vilanterol 25 mcg/dose inhalation powder (Breo Ellipta) cetirizine 10 mg capsule (Zyrtec) 10 mg PO DAILY PRN allergy symptoms 08/18/22 Unknown History budesonide 0.5 mg/2 mL suspension 0.5 mg (2 mL) inhalation BID #60 mL 09/29/22 Unknown Rx for nebulization pantoprazole 40 mg tablet,delayed 40 mg PO DAILY 06/15/23 Unknown History release (Protonix) albuterol 90 mcg/actuation aerosol 90 mcg inhalation Q4H PRN 02/16/24 Unknown History inhaler prochlorperazine maleate 5 mg 5 mg PO TID PRN nausea and 02/16/24 Unknown Rx tablet (Compazine) vomiting #21 tabs Allergy/AdvReac Type Severity Reaction Status Date / Time lansoprazole (From Prevacid) Allergy Swelling Verified 02/16/24 04:34 meloxicam AdvReac Other Verified 02/16/24 04:34 Surgical History History of cholecystectomy Social History Smoking Status: Former smoker substance use type: does not use ROS ROS ED Constitutional Constitutional ED: Denies chills or fever(s) Eyes Eyes: Denies change in vision ENT ENT ED: Denies sore throat Cardiovascular Cardiovascular: Reports other Details: Positive syncope ; Denies chest pain Respiratory/Chest Respiratory/Chest: Denies cough or dyspnea Gastrointestinal Gastrointestinal: Reports abdominal pain, constipation, nausea and vomiting; Denies diarrhea Genitourinary Genitourinary ED: Denies dysuria Musculoskeletal Musculoskeletal: Denies back pain or neck pain Integumentary Denies rash Neurologic Neurologic: Denies headache(s) Psychiatric Psychiatric: Reports anxiety Hematologic/Lymphatic Hematologic/Lymphatic: Denies easy bleeding or easy bruising EXAM Physical Exam Const Vital Signs: 02/16/24 04:34 02/16/24 04:39 02/16/24 06:33 Temperature 98.1 F Temperature Source Oral Pulse Rate 67 68 Respiratory Rate 20 H 18 Respiratory Effort Normal Non-Labored Respiratory Pattern Tachypnea Blood Pressure 135/57 H 140/64 H Blood Pressure Mean 83 89 Pulse Ox 99 96 Oxygen Delivery Method Room Air Room Air Positive well nourished and well developed General Appearance ED: well developed; Negative for pallor HEENT HEENT Narrative: Normocephalic atraumatic Eyes PERRL and EOMs intact bilaterally General Eye ED: Negative for scleral icterus Neck supple Neck Narrative: No bony deformity or step-off of the cervical spine no midline tenderness to palpation Chest Wall palpation of chest normal Chest Narrative: No bony deformity or crepitance noted Resp normal respiratory effort and clear to auscultation bilaterally Cardio regular rate and regular rhythm Rate: other Other Details: Radial and carotid pulses are equal and symmetric GI non-distended GI Narrative: Abdomen is soft and nondistended with hyperactive bowel sounds. There is mild generalized pain on palpation without voluntary guarding or rigidity. No pulsatile mass or fluid wave Auscultation: hyperactive bowel sounds Palpation: soft Back/Spine Back/Spine Narrative: No bony deformity or step-off of the thoracic or lumbar spine no midline tenderness to palpation Extremity normal to inspection Extremity Narrative: No signs of long bone/bony injury noted Neuro oriented x3, CN's II-XII intact bilaterally and no sensory deficits noted Sensorium / Orientation: alert Motor Exam: strength 5/5 throughout Psych Psych Narrative: Patient has a nervous/anxious affect Skin no rashes or lesions noted and no wounds General Skin Exam: Negative for jaundice or pallor MDM MDM MDM Narrative Medical decision making narrative: Patient arrived to the ER with stable vitals. She reported a longstanding history of anxiety as well as GERD and states when she does not eat the right food that this causes her upset stomach. She also reports that she has had multiple episodes where she passes out and tonight episode was no different than the previous. We discussed obtaining an EKG and basic labs but patient and state this is very normal for her and are simply requesting medication to help get the nausea and vomiting under control. As the patient already took Zofran at home she was given IV Benadryl and Compazine. She was also hydrated with 1 L of fluid. After receiving the medication her nausea and vomiting resolved. She was given a GI cocktail and was able to hold this down. Therefore at this time with resolution of symptoms and a soft nonsurgical abdomen I do not feel there is need for admission and patient is otherwise safe for discharge. I do feel this was a side effect of her anxiety and GERD and do not believe this is related to acute pancreatitis or small bowel obstruction or gastric perforation based on her history and physical exam. History & Record Review Discussion w/independent historian: Patient and Family Discharge Plan Triage Chief Complaint: Syncope ED Provider: Edward Rainey Dx/Rx/DC Orders Clinical Impression: Nausea & vomiting, GERD (gastroesophageal reflux disease), Anxiety, Asthma Instructions: GERD Lifestyle Changes, ED GERD (Adult), ED Vomiting (Adult) Prescriptions: New prochlorperazine maleate [Compazine] 5 mg tablet 5 mg PO TID PRN (Reason: nausea and vomiting) Qty: 21 0RF No Action Zyrtec 10 mg capsule 10 mg PO DAILY PRN (Reason: allergy symptoms) buspirone 5 MG tablet 5 mg PO DAILY PRN PRN (Reason: Anxiety) Patient Comments: depression escitalopram oxalate [Lexapro] 5 MG tablet 5 mg PO DAILY Patient Comments: mental health fluticasone furoate-vilanterol [Breo Ellipta] 1 EACH blister with device 1 ea IH DAILY budesonide 0.5 mg/2 mL suspension for nebulization 0.5 mg inhalation BID Qty: 60 0RF pantoprazole [Protonix] 40 mg tablet,delayed release (DR/EC) 40 mg PO DAILY albuterol 90 mcg/actuation aerosol 90 mcg inhalation Q4H PRN Primary Care Provider: Elma White Referrals: Elma White, [employer] [Primary Care Provider] - Activity Restrictions/Additional Instructions: You may continue to use your Zofran for nausea and vomiting but if you take this and symptoms persist then you may try the Compazine that was prescribed today. Return to the ER should you have any further concerns Print Language: Kinyarwanda Disposition Disposition: Home, Self Care
[2024-02-16] MEDS: proCHLORPERazine 10 MG/2 ML Vial 5 MG IV (05:04)
[2024-02-16] MEDS: 0.9% Normal Saline (1000mL) 1,000 ML 999 ML IV (05:04)
[2024-02-16] MEDS: DiphenhydrAMINE 50 MG/ML Syringe 25 MG IV (05:04)
[2024-02-16] MEDS: Lidocaine 2% Viscous15 ML UDC 15 ML PO (06:09)
[2024-02-16] MEDS: Mag Hydrox/Al Hydrox/Simeth 30 ML UDC PO (06:09)
[2024-02-16 06:33] VITALS: BP 140/64; PULSE 68; RESP 18; O2SAT 96
[2024-02-16 06:52] VITALS: BP 140/64; PULSE 69; RESP 16; TEMP 36.6; O2SAT 96
== END 2024-02-16 06:59 | disposition home or self-care (01) ==
PROVIDERS: Emergency Provider Emergency Medicine; PCP Nurse Practitioner Family; Visit Provider Emergency Medicine
DX: R11.2 Nausea with vomiting, unspecified (principal); R55 Syncope and collapse; K21.9 Gastro-esophageal reflux disease without esophagitis; J45.909 Unspecified asthma, uncomplicated; F41.9 Anxiety disorder, unspecified; Z79.899 Other long term (current) drug therapy; Z87.891 Personal history of nicotine dependence
CPT/HCPCS: 96361; 96374; 96375; 99285; J7030

== ENCOUNTER → 2024-04-18 | Outpatient (CLI) | payer MEDICARE, OTHER, SELFPAY ==
[2024-04-18 08:22] LABS: Absolute Lymphocyte Count 3.01 X10^3/uL (0.83-4.51); Absolute Neutrophil Count 5.9 X10^3/uL (2.0-7.7); Basophil# 0.06 X10^3/uL; Basophil% 0.6 % (0-1); Eosinophil# 0.25 X10^3/uL; Eosinophils% 2.5 % (0-5); Hematocrit 40.6 % (37-47); Hemoglobin 13.2 g/dL (12.0-15.0); Lymphocyte # 3.01 X10^3/ul (0.83-4.51); Lymphocyte % 29.5 % (19-41); Mean Corp Hgb Conc 32.5 g/dL (32-36); Mean Corpuscular Hgb 30.3 pg (27.0-32.0); Mean Corpuscular Volume 93.1 fL (81-99); Mean Platelet Vol. 10.3 fl (6.2-12.0); Monocyte# 0.92 X10^3/uL; NRBC Flagged by Analyzer 0 % (0-5); Neutrophil % 57.9 % (47-70); Platelet Count 259 K/mm3 (150-450); RBC Distribution Width CV 13.2 % (11.6-14.6); RBC Distribution Width SD 45.3 fl (35.1-43.9); Red Blood Count 4.36 M/mm3 (4.2-5.4); White Blood Count 10.2 K/mm3 (4.4-11.0)
[2024-04-18 09:13] LABS: Vitamin B12 424 pg/mL (211-911); Vitamin D,25 Hydroxy 47.8 ng/mL
[2024-04-18 09:54] LABS: AST(SGOT) 19 U/L (15-37); Alanine Aminotransfer ALT/SGPT 21 U/L (13-56); Albumin, Serum 3.5 g/dL (3.2-5.0); Alkaline Phosphatase 66 U/L (45-117); Anion Gap 4 (5-15); BUN 16 mg/dL (7-18); BUN/Creat Ratio 16.4 RATIO (10-20); Calcium,Total 8.6 mg/dL (8.5-10.1); Chloride 107 mmol/L (98-107); Cholesterol 202 mg/dL (200); Creatinine, Serum 0.98 mg/dL (0.55-1.02); EST Glomerular Filtration Rate 59 mL/min (>60); Est Glom Filt Rate - Afr Amer 71 mL/min (>60); Globulin 3.6 g/dL (2.2-4.2); Glucose 85 mg/dL (74-106); High Density Lipoprotein 73 mg/dL; Protein, Total 7.1 g/dL (6.4-8.2); Sodium Level 140 mmol/L (136-145); Triglycerides 66 mg/dL; Very Low Density Lipoprotein 13 mg/dL (5-40)
[2024-04-18 11:39] LABS: Microalbumin:Creatinine Ratio 9.9 mg/g CRE (<30 mg/g CRE)
== END | disposition home or self-care (01) ==
LOC: LAB 07:53
PROVIDERS: PCP Nurse Practitioner Family; Referring Provider Nurse Practitioner Family; Visit Provider Nurse Practitioner Family
DX: N18.31 Chronic kidney disease, stage 3a (principal); E78.00 Pure hypercholesterolemia, unspecified; E55.9 Vitamin D deficiency, unspecified; F32.5 Major depressive disorder, single episode, in full remission
CPT/HCPCS: 36415; 80053; 80061; 82043; 82306; 82570; 82607; 85025

== ENCOUNTER → 2024-05-28 | Outpatient (CLI) | payer MEDICARE, OTHER, SELFPAY ==
--- NOTE | 2024-05-28 10:31 | CDU_ITS ---
Reason For Study: Stenosis Rt. Velocities/BP Lt. Velocities/BP Prox CCA 93.8/12.4 cm/sec. Prox CCA 67.4/9.1 cm/sec. Mid CCA 82.8/16.8 cm/sec. Mid CCA 79.0/17.6 cm/sec. Dist CCA 64.1/14.6 cm/sec. Dist CCA 70.4/16.3 cm/sec. Prox ICA 44.3/11.6 cm/sec. Prox ICA 61.9/17.9 cm/sec. Mid ICA 67.4/16.3 cm/sec. Mid ICA 59.7/11.3 cm/sec. Dist ICA 65.1/9.1 cm/sec. Dist ICA 47.8/15.8 cm/sec. Rt. ICA/CCA = 0.8. Lt. ICA/CCA = 0.8. Prox ECA 87.2/5.8 cm/sec. Prox ECA 60.5/7.7 cm/sec. Rt. Vert. 53.2/11.4 cm/sec. Lt. Vert. 36.5/7.3 cm/sec. Right Extracranial There is intimal thickening but no significant atherosclerotic plaque noted in the right common carotid artery. There is intimal thickening but no significant atherosclerotic plaque noted in the right internal carotid artery. There is intimal thickening but no significant atherosclerotic plaque noted in the right external carotid artery. Antegrade flow is noted in the right vertebral artery. Left Extracranial There is intimal thickening but no significant atherosclerotic plaque noted in the left common carotid artery. There is heterogeneous, irregular atherosclerotic plaque noted in the left internal carotid artery. There is heterogeneous, smooth atherosclerotic plaque noted in the left external carotid artery. Antegrade flow is noted in the left vertebral artery. Procedure Carotid Duplex 31466. This is a Carotid Duplex examination using B-mode, color flow and specral Doppler. Exam performed in department. VL/Carotid Duplex Ultrasound Interpretation Summary Normal right extracranial internal carotid. Mild (<50%) stenosis left extracranial internal carotid. Patent and antegrade vertebrals bilaterally. Ordering Physician: Elma White Referring Physician: Elma White Performed By: Betsy Tolliver RVT and Student
[2024-05-28 12:13] LABS: Magnesium 2.4 mg/dL (1.6-2.6); Phosphorus 4.2 mg/dL (2.5-4.9)
--- NOTE | 2024-05-28 13:34 | BD_ITS ---
PROCEDURE: DEXA BONE DENSITY STUDY REASON FOR EXAM: 78-year-old female. Osteoporosis screening. TECHNIQUE: DEXA scan of the lumbar spine and both hips. COMPARISON: 05/16/2022 FINDINGS: T-SCORES Lumbar spine: T-score of -4.2. Bone mineral density 0.586 g per cm2. (Prior T- score -4.4. 4.5% increased bone mineral density from the previous study.) Left hip: Total T-score -2.7.. Bone mineral density 0.513 g per cm2. (Prior T- score -3.0. 6.1% increased bone mineral density from the previous study.) Right hip: T-score -3.4. Bone mineral density 0.472 g per cm2. (Prior T-score - 2.9.) 2.3% decreased bone mineral density from the previous study. FRAX* Results: 10 Year Probability of Fracture: Hip Fracture(1): 25% Major Osteoporotic Fracture(2): 50% *FRAX is a trademark of the [employer]'s Cook for Metabolic Bone Disease, World Health Organization (WHO) Collaborating Cook. 1-The 10-year probability of fracture may be lower than reported if the patient has received treatment. 2-Major Osteoporotic Fracture: Clinical Spine, Forearm, Hip or Shoulder. The T-scores are also available for review on the [facility] PACS or by accessing the [facility] electronic medical record. BD/Dexa Bone Density Study IMPRESSION: Osteoporosis. Reading Location: [facility]
== END | disposition home or self-care (01) ==
PROVIDERS: PCP Nurse Practitioner Family; Referring Provider Nurse Practitioner Family; Visit Provider Nurse Practitioner Family
DX: M81.0 Age-related osteoporosis without current pathological fracture (principal); I65.23 Occlusion and stenosis of bilateral carotid arteries; Z78.0 Asymptomatic menopausal state
CPT/HCPCS: 36415; 77080; 82306; 83735; 84100; 93880

== ENCOUNTER 2024-06-16 09:06 | Outpatient (CLI) | payer MEDICARE, OTHER, SELFPAY ==
[2024-06-16 09:20] VITALS: BP 119/53; PULSE 71; RESP 16; TEMP 36.5; O2SAT 99; BMI 24.1
[2024-06-16] MEDS: 0.9% Normal Saline (100mL Bag) 100 ML 15 ML IV (09:43)
[2024-06-16] MEDS: Zoledronic Acid 5 MG 100 ML 300 MG IV (09:46)
[2024-06-16] MEDS: 0.9% NaCl Peripheral Flush Adult/Peds IV (09:47)
[2024-06-16 10:21] VITALS: BP 115/58; PULSE 59; RESP 16; TEMP 36.6; O2SAT 100
== END 2024-06-16 23:59 | disposition home or self-care (01) ==
LOC: MEDOUTP 09:07
PROVIDERS: PCP Nurse Practitioner Family; Referring Provider Nurse Practitioner Family; Visit Provider Nurse Practitioner Family
DX: J34.89 Other specified disorders of nose and nasal sinuses (principal)
CPT/HCPCS: 96365; A4216; J3489

== ENCOUNTER 2024-09-02 18:49 | Emergency (ER) | payer MEDICARE, OTHER, SELFPAY ==
[2024-09-02 18:51] VITALS: BP 120/89; PULSE 62; RESP 22; TEMP 36.4; O2SAT 97; BMI 24.5
--- NOTE | 2024-09-02 19:27 | EDS_ITS ---
HPI HPI - Fall History of Present Illness Chief Complaint: Fall Informant: patient Occured/Mechanism Occurred: Today Mechanism/Context: Yes same level fall and Yes trip Usually ambulates: Without assistance Pain/Injury Pain Location: chest and upper extremity Quality of Pain: Sharp Current Severity: Moderate Maximum Severity: Moderate Associated Symptoms Associated Symptoms: Negative for Parasthesias, Weakness, Loss of function, I nability to ambulate, Loss of consciousness or Amnesia Narrative Narrative: Since [id number] female history of peripheral vascular disease and osteoporosis. Was watching her son's animals when she tripped over something fell primarily injuring her right hand and thinks she may have injured her ribs. No LOC. No significant head injury. She is on no blood thinners. Denies any neck or back pain. Denies any abdominal pain. [place] fine prior to the fall. This occurred around 6:30 PM. She is right-hand dominant. No prior history of right hand injury or surgery. Denies any hip pain. Prior similar symptoms: No Recent Illness/Hospitalization: No PFSH PFSH Medical History Age related osteoporosis Former smoker Constipation Asthma Nodule of middle lobe of right lung PVD (peripheral vascular disease) GERD (gastroesophageal reflux disease) Home Medications ?Medication ?Instructions ?Recorded ?Last Taken ?Type buspirone 5 mg tablet 5 mg PO DAILY PRN PRN Anxiet y 09/09/13 11/04/14 17:00 History 5 MG escitalopram oxalate 5 mg tablet 5 mg PO DAILY 5 Unknown History (Lexapro) fluticasone furoate 100 1 ea IH DAILY 08/03/17 Unkno wn History mcg-vilanterol 25 mcg/dose inhalation powder (Breo Ellipta) cetirizine 10 mg capsule (Zyrtec) 10 mg PO DAILY PRN a llergy symptoms 08/18/22 Unknown History budesonide 0.5 mg/2 mL suspension 0.5 mg (2 mL) inhala tion BID #60 mL 09/29/22 Unknown Rx for nebulization pantoprazole 40 mg tablet,delayed 40 mg PO DAILY 06/15 Unknown History release (Protonix) albuterol 90 mcg/actuation aerosol 90 mcg inhalation Q 4H PRN 02/16/24 Unknown History inhaler prochlorperazine maleate 5 mg 5 mg PO TID PRN nausea a nd 02/16/24 Unknown Rx tablet (Compazine) vomiting #21 tabs sucralfate 1 gram tablet (Carafate) 1 g PO BID 5 Unknown History Allergy/AdvReac Type Severity Reaction Status Date / Time amoxicillin Allergy Mild Rash Verified 09/02/24 18:53 lansoprazole (From Prevacid) Allergy Swelling Verified 09/02/24 18:53 meloxicam AdvReac Other Verified 09/02/24 18:53 Surgical History History of cholecystectomy Social History Smoking Status: Former smoker substance use type: does not use ROS ROS ED ROS Narrative Denies recent illness. Constitutional Constitutional ED: Denies chills or fever(s) Eyes Eyes: Denies blurry vision ENT ENT ED: Denies ear pain Cardiovascular Cardiovascular: Reports other Details: Rib cage pain post fall both sides. ; Denies chest pain Respiratory/Chest Respiratory/Chest: Denies cough Gastrointestinal Gastrointestinal: Denies abdominal pain Genitourinary Genitourinary ED: Denies dysuria or hematuria Musculoskeletal Musculoskeletal: Denies arthralgias or back pain Integumentary Denies abscess Neurologic Neurologic: Denies headache(s) Psychiatric Psychiatric: Denies anxiety Endocrine Endocrinology: Denies polydipsia Hematologic/Lymphatic Hematologic/Lymphatic: Denies easy bleeding, easy bruising or lymphadenopathy Allergic/Immunologic Allergic/Immunologic ED: Denies mouth swelling, tongue swelling or urticaria EXAM Physical Exam Narrative Exam Narrative: 78-year-old female sitting upright in bed. No acute distress. Vital signs stable afebrile. Accompanied by family. H EENT exam pupils round reactive light. No significant trauma to her face or scalp. No hematoma. No laceration. Neck and C-spine nontender. Trachea midline. Back and spine nontender. No bruising. Lungs clear to auscultation bilaterally. Heart regular rhythm no murmur rate about 65. Chest wall and ribs minimal tenderness bilaterally. No subcu air or crepitus. No bony deformity. Abdomen soft nontender. Pelvic girdle intact. Moving all 4 extremities. Right hand along the MCP of the right index long and ring fingers mildly swollen tender. Normal flexion extension. Wrist nontender no deformity. Forearm and elbow and shoulder nontender. Right hand is neurovascularly intact. Skins intact. Left upper both lower extremities otherwise are unremarkable. There are some old bruises on her lower extremities. No acute. Nontender no deformity. Normal range of motion. Neurologically she is awake alert. Answering questions following commands. GCS 15. No focal motor deficits. Const Vital Signs: 09/02/24 18:51 09/02/24 19:06 Temperature 97.5 F L Temperature Source Oral Pulse Rate 62 Respiratory Rate 22 H Respiratory Effort Normal Respiratory Depth Normal Respiratory Pattern Normal Blood Pressure 120/89 H Blood Pressure Mean 99 Pulse Ox 97 Oxygen Delivery Method Room Air Room Air Positive well nourished and well developed; Negative for obese, cachectic, contractures or unkempt General Appearance ED: well developed and NAD; Negative for unkempt, cachectic or contractures Nutritional Appearance: Negative for cachectic or obese HEENT Reports normocephalic atraumatic; Negative for trauma, contusion, hematoma or tenderness Eyes PERRL and EOMs intact bilaterally General Eye ED: Negative for pale conjunctiva or scleral icterus Neck full ROM, no lymphadenopathy and supple General: Negative for tenderness Chest Wall inspection of chest normal; Negative for palpation of chest normal Chest Narrative: Mild chest wall tenderness bilaterally. No crepitance or subcu air. No bruising. Resp normal respiratory effort, no retractions and clear to auscultation bilaterally Auscultation: Negative for rales, rhonchi, wheezes or diminished lung sounds Cardio regular rate, regular rhythm, S1 normal heart sound, S2 normal heart sound and no murmurs Rate: Negative for bradycardia or tachycardic Rhythm: Negative for abnormal rhythm Bruits: Negative for other GI non-tender, non-distended and no masses Inspection: Negative for abdominal distention Auscultation: normoactive bowel sounds Palpation: soft; Negative for guarding or rebound tenderness present Back/Spine no CVA tenderness General Back: Negative for CVA tenderness Cervical Spine: Negative for cervical spine tenderness Lumbar Spine / Lower Back: Negative for lumbar spinal tenderness Neuro oriented x3, CN's II-XII intact bilaterally, moves all extremities and no focal motor deficits Sensorium / Orientation: alert, oriented to person, oriented to place and oriented to time; Negative for orientation impaired, confused, lethargic or stuporous Motor Exam: strength 5/5 throughout Psych mental status grossly normal and thought process normal Appearance: Negative for unkempt Attitude: No agitated Mood & Affect: Negative for depressed, anxious or tearful Skin Lesions: no lesions Rashes: no rashes Trauma: Negative for abrasion or laceration MDM MDM MDM Narrative Medical decision making narrative: 78-year-old female tripped and fell injuring her right hand rule out fracture or dislocation x-ray to be obtained. She only wanted Tylenol for pain which will be given. Chest x-ray to rule out any obvious rib fractures. She does not need a CAT scan of her head or any other imaging. Otherwise exam benign. Repeat exam patient is doing well at 8 PM. Due to the metacarpal head fractures of the right long and ring finger I put her in a short arm AP splint well- padded. She will follow-up with orthopedics. On-call for orthopedics is Dr. Ordaz. She will be referred to him. Ice and elevate. Tylenol for pain. History & Record Review Discussion w/independent historian: Patient and Family Additional record(s) reviewed:: Prior inpatient record, Prior outpatient record, Prior ED visit and Prior labs Radiography Chest X-Ray - ED: 2 View, Read by ED Physician, Heart, Lungs, Mediastinum, Bony Structures, No Acute Disease, Chronic Changes and - (No obvious rib fracture. Prior vertebroplasty thoracic spine. Prior compression fractures of both thoracic and lumbar spine.) Diagnostic Testing: Right hand x-ray, 3 views, interpreted by myself shows shows nondisplaced fracture of the right long finger metacarpal head and also a nondisplaced fracture of the right ring finger metacarpal head. I did go over the x-rays with the patient. Chest x-ray, 2 views, interpreted by myself shows no acute injury. I did discuss with the patient possibility of a missed rib fracture on her plain film. She has chronic osteoporosis. Normal cardiac silhouette. Normal lung anderson. She has had prior vertebroplasty of one of her thoracic spine. She has old compression fractures. Procedures Upper Extremity Splints Upper Extremity Splint: Orthoglass Splint Fabrication: Fabricated Location: Right (Right hand short arm AP splint. Well-padded. Ortho-Glass. Patient tolerated procedure well. She was instructed on splint care.) Discharge Plan Triage Chief Complaint: Fall ED Provider: Hamlet Nieves Dx/Rx/DC Orders Clinical Impression: Fall, Closed fracture of metacarpal of right hand, Contusion of rib, History of osteoporosis Instructions: ED Closed Hand Fracture (Adult), ED Rib Contusion or Minor Fracture Prescriptions: No Action Zyrtec 10 mg capsule 10 mg PO DAILY PRN (Reason: allergy symptoms) buspirone 5 MG tablet 5 mg PO DAILY PRN PRN (Reason: Anxiety) Patient Comments: depression escitalopram oxalate [Lexapro] 5 MG tablet 5 mg PO DAILY Patient Comments: mental health fluticasone furoate-vilanterol [Breo Ellipta] 1 EACH blister with device 1 ea IH DAILY budesonide 0.5 mg/2 mL suspension for nebulization 0.5 mg inhalation BID Qty: 60 0RF pantoprazole [Protonix] 40 mg tablet,delayed release (DR/EC) 40 mg PO DAILY albuterol 90 mcg/actuation aerosol 90 mcg inhalation Q4H PRN prochlorperazine maleate [Compazine] 5 mg tablet 5 mg PO TID PRN (Reason: nausea and vomiting) Qty: 21 0RF sucralfate [Carafate] 1 gram tablet 1 g PO BID Primary Care Provider: Elma White Referrals: Vinay Ordaz MD [Med Staff - Active Staff] - As soon as possible Elma White, [employer] SUPER[employer]ENDENT-C [Primary Care Provider] - Activity Restrictions/Additional Instructions: Ice and elevate your right hand to decrease pain and swelling. You have 2 broken bones in your hand. Tylenol for pain. Keep the splint on. Keep it dry and clean. Most likely you have just contusions to your ribs and chest wall. There is no obvious fracture seen on the x-ray. You can have small rib fractures that we do not see on the x-ray. Ice your ribs. Use a pillow for support to your ribs. Call and follow-up with the orthopedic Dr. Ordaz for further evaluation of your hand and he can decide if he needs a cast. Print Language: Upper Sorbian Disposition Disposition: Home, Self Care
[2024-09-02] MEDS: Acetaminophen 500 MG Tablet 1000 MG PO (19:35)
--- NOTE | 2024-09-02 19:35 | RAD_ITS ---
PROCEDURE: HAND MIN 3 VIEWS 09/02/2024 REASON FOR EXAM: FALL AND PAIN TECHNIQUE: 3 view(s) of the right hand COMPARISON: None FINDINGS: Nondisplaced comminuted fracture head of the 3rd metacarpal. Lucency through the head of the 4th metacarpal, also concerning for a fracture. Mild soft tissue swelling. Mild multifocal osteoarthritis. No radiopaque foreign body. RAD/Hand Min 3 Views IMPRESSION: Nondisplaced fractures of the 3rd and 4th metacarpal heads. Mild soft tissue s welling. Reading Location: [facility]
--- NOTE | 2024-09-02 19:35 | RAD_ITS ---
PROCEDURE: CHEST PA AND LATERAL 09/02/2024 REASON FOR EXAM: FALL AND PAIN TECHNIQUE: Frontal and lateral views of the chest. COMPARISON: 09/29/2022 FINDINGS: Hardware: None Heart: Heart size is mildly enlarged. Mediastinum: The mediastinal contour is unremarkable. Lungs: Mild bibasilar atelectasis. No focal consolidation. No pneumothorax. Bones: Status post kyphoplasty. Multiple remote appearing compression deformities of the thoracic spine. RAD/Chest PA and Lateral IMPRESSION: NO ACUTE FINDINGS. Reading [facility]
== END 2024-09-02 20:26 | disposition home or self-care (01) ==
PROVIDERS: Emergency Provider Emergency Medicine; PCP Nurse Practitioner Family; Visit Provider Emergency Medicine
DX: S62.392A Other fracture of third metacarpal bone, right hand, initial encounter for closed fracture (principal); S20.213A Contusion of bilateral front wall of thorax, initial encounter; S62.394A Other fracture of fourth metacarpal bone, right hand, initial encounter for closed fracture; W18.30XA Fall on same level, unspecified, initial encounter; M81.0 Age-related osteoporosis without current pathological fracture; W18.09XA Striking against other object with subsequent fall, initial encounter; J45.909 Unspecified asthma, uncomplicated; K21.9 Gastro-esophageal reflux disease without esophagitis; Z87.891 Personal history of nicotine dependence
CPT/HCPCS: 29125; 71046; 73130; 99283

== ENCOUNTER → 2024-11-24 | Outpatient (CLI) | payer MEDICARE, OTHER, SELFPAY ==
[2024-11-24 12:04] LABS: Color, Urine Yellow (Yellow); Glucose, Dipstick Normal (Normal); Ketone-Dipstick Negative (Negative); Leukocyte Esterase-Dipstick 100 /ul (Negative); Nitrite-Dipstick Negative (Negative); Occult Blood-Urine Negative /ul (Negative); Protein-Dipstick 15 mg/dl (Negative); Specific Gravity, Urine 1.020 (1.002-1.030); Urine Bilirubin Dipstick Negative (Negative)
[2024-11-24 13:19] LABS: AST(SGOT) 23 U/L (<=31); Alanine Aminotransfer ALT/SGPT 15 U/L (<=34); Albumin, Serum 3.8 g/dL (3.4-4.8); Alkaline Phosphatase 74 U/L (35-104); Anion Gap 11 (5-15); BUN 16 mg/dL (4-19); BUN/Creat Ratio 16.7 RATIO (10-20); Calcium,Total 9.3 mg/dL (7.6-11.0); Carbon Dioxide 25.4 mmol/L (21.0-32.0); Chloride 104 mmol/L (98-108); Globulin 3.3 g/dL (2.2-4.2); Glucose 77 mg/dL (70-99); Magnesium 2.1 mg/dL (1.5-2.2); Potassium 4.2 mmol/L (3.3-5.1)
== END | disposition home or self-care (01) ==
LOC: LAB 11:23
PROVIDERS: PCP Nurse Practitioner Family; Referring Provider Nurse Practitioner Family; Visit Provider Nurse Practitioner Family
DX: I25.10 Atherosclerotic heart disease of native coronary artery without angina pectoris (principal); K21.9 Gastro-esophageal reflux disease without esophagitis
CPT/HCPCS: 36415; 80053; 81002; 83735; 84443

== ENCOUNTER → 2024-12-12 | Outpatient (CLI) | payer MEDICARE, OTHER, SELFPAY ==
--- NOTE | 2024-12-12 07:55 | CT_ITS ---
PROCEDURE: CHEST WITHOUT CONTRAST 12/12/2024 REASON FOR EXAM: PARAESOPHAGEAL HERNIA TECHNIQUE: Chest CT without contrast. Coronal and Sagittal reconstruction series were provided. One or more dose reduction techniques were used (e.g., Automated exposure control, adjustment of the mA and/or kV according to patient size, use of iterative reconstruction technique RADIATION DOSE SUMMARY: CTDlvol: 7.02 mGy DLP: 237.37 mGycm COMPARISON: None FINDINGS: Hardware: None Lymph nodes: Small benign-appearing bilateral axillary lymph nodes. Small benign-appearing mediastinal lymph nodes. Heart and Vasculature: The heart is not enlarged. Coronary artery calcification. Coronary Artery Calcifications: Present Lungs and Airways: There is a 1.7 cm x 1.3 cm spiculated pleural-based nodule in the lateral inferior aspect of the right upper lobe as seen on axial image number 57 and coronal image number 138. A neoplastic process should be ruled out. There is also evidence of increased markings in the posterior aspect of the lingular segment of the left upper lobe suggestive of scarring as well as increased linear markings in both lower lobes suggestive of either atelectasis and/or scarring. Pleura: No pleural effusion. Upper Abdomen: Moderate-sized hiatal hernia. Left renal cyst. The gallbladder is not visualized. Bones: Diffuse osteopenia of the thoracic vertebrae with prior kyphoplasty of the mid dorsal vertebrae. Loss of height of mid and lower dorsal vertebrae. CT/Chest without Contrast IMPRESSION: Coronary artery calcification (CAC) is is present Moderate-sized hiatal hernia. 1.7 cm x 1.3 cm spiculated pleural-based nodule in the lateral inferior aspect of the right upper lobe as described. A neoplastic process should be ruled out. Correlation with a PET scan recommende d. Multilevel loss of height of thoracic vertebrae and prior vertebroplasty. Reading Location: [facility]
--- NOTE | 2024-12-12 07:57 | NM_ITS ---
PROCEDURE: GASTRIC EMPTYING STUDY 12/12/2024 REASON FOR EXAM: EARLY SATIETY COMPARISON: None TECHNIQUE: The patient ingested a standard meal of oatmeal, radiopharmaceutical and water. Total time taken to ingest the meal was minutes. There was no vomiting postprandially. Anterior and posterior planar images of the upper abdomen were obtained for 1 minute immediately following the meal at 1h, 2h and 4h if more than 10% of the activity persisted within the stomach. Regions of interest were drawn, and a geometric mean was used to calculate a [id number]. RADIOPHARMACEUTICAL: Sulfur colloid DOSE 1.1mCi FINDINGS: Percent activity remaining in stomach: 1 hour 26 % (normal 37-90%) NM/Gastric Emptying Study IMPRESSION: Normal gastric emptying examination. Reading Location: [id number]
== END | disposition home or self-care (01) ==
PROVIDERS: PCP Nurse Practitioner Family
DX: K44.9 Diaphragmatic hernia without obstruction or gangrene (principal)
CPT/HCPCS: 71250; 78264; A9541

== ENCOUNTER → 2025-01-09 | Outpatient (CLI) | payer MEDICARE, OTHER, SELFPAY ==
--- NOTE | 2025-01-09 10:37 | RAD_ITS ---
PROCEDURE: CHEST PA AND LATERAL 01/09/2025 REASON FOR EXAM: PULMONARY NODULE TECHNIQUE: Procedure Code: RADCXR Modality: DX Procedure: CHEST PA AND LATERAL COMPARISON: 09/02/2024 FINDINGS: LUNGS AND PLEURA: Strandy opacities again noted in the mid and lower lungs bilaterally, with interval worsening. No pleural effusion or pneumothorax. HEART AND MEDIASTINUM: The heart size and mediastinal contours are normal. BONES: No acute osseous abnormality. Chronic compression deformities at multiple vertebral levels, status post vertebroplasty at T7. OTHER: Small hiatal hernia again noted. RAD/Chest PA and Lateral IMPRESSION: Strandy lung opacities bilaterally, likely atelectasis/scarring, with infection not excluded. Reading Location: [id number]
== END | disposition home or self-care (01) ==
PROVIDERS: PCP Nurse Practitioner Family; Referring Provider Internal Medicine Pulmonary Disease; Visit Provider Internal Medicine Pulmonary Disease
DX: R91.1 Solitary pulmonary nodule (principal)
CPT/HCPCS: 71046

== ENCOUNTER → 2025-01-13 | Outpatient (CLI) | payer MEDICARE, OTHER, SELFPAY ==
--- NOTE | 2025-01-13 08:45 | BI_ITS ---
EXAM: SCRN MAMM (CAD)W/STEPHEN BILAT DATE: 01/13/2025 CLINICAL HISTORY: F, Age 79 y/o , SCREENING No family history. TECHNIQUE: Procedure Code: [id number] Modality: MG Procedure: SCRN MAMM (CAD)W/STEPHEN BILAT COMPARISON: Prior exam(s) dated prior study dated August 23, 2023.. FINDINGS: TISSUE DENSITY: The breasts are heterogeneously dense, which may obscure small masses. Bilateral Breast Mammographic Findings: No significant masses, calcifications or other abnormalities are identified. Stable bilateral small benign-appearing axillary lymph nodes. No suspicious masses, areas of developing architectural distortion, or suspicious calcifications. There has been no significant interval change. BI/SCRN MAMM (CAD)W/STEPHEN BILAT IMPRESSION: Stable bilateral screening mammogram. OVERALL FINAL ASSESSMENT BI-RADS 2: BENIGN RECOMMENDATION: Routine annual follow-up in 1 Year Additional Recommendation none A letter with findings and recommendations will be mailed to the patient. Reading Location: [place] [id number]
== END | disposition home or self-care (01) ==
LOC: OPBI 08:27
PROVIDERS: PCP Nurse Practitioner Family; Referring Provider Nurse Practitioner Family; Visit Provider Nurse Practitioner Family
DX: Z12.31 Encounter for screening mammogram for malignant neoplasm of breast (principal)
CPT/HCPCS: 77063; 77067

== ENCOUNTER → 2025-01-22 | Outpatient (CLI) | payer MEDICARE, OTHER, SELFPAY ==
--- NOTE | 2025-01-22 09:10 | RAD_ITS ---
PROCEDURE: CHEST PA AND LATERAL 01/22/2025 REASON FOR EXAM: PULM NODULE TECHNIQUE: Procedure Code: RADCXR Modality: DX Procedure: CHEST PA AND LATERAL COMPARISON: Two-view chest, 01/09/2025. FINDINGS: There are linear scars in both midlung zones in both lung bases. There is no lobar consolidation or pleural effusion. The heart size is normal. There is calcific vascular disease of the thoracic aorta. There are multiple compression fractures of the thoracic spine. There is vertebroplasty at a midthoracic level. No new compression fractures are evident. RAD/Chest PA and Lateral IMPRESSION: Multifocal linear scars in both lungs as described. Other findings as noted. There are no new pulmonary nodules. Reading Location: [place] [id number]
--- NOTE | 2025-01-22 09:10 | RAD_ITS ---
PROCEDURE: CHEST PA AND LATERAL 01/22/2025 REASON FOR EXAM: PULM NODULE TECHNIQUE: Procedure Code: RADCXR Modality: DX Procedure: CHEST PA AND LATERAL COMPARISON: Two-view chest, 01/09/2025. FINDINGS: There are linear scars in both midlung zones in both lung bases. There is no lobar consolidation or pleural effusion. The heart size is normal. There is calcific vascular disease of the thoracic aorta. There are multiple compression fractures of the thoracic spine. There is vertebroplasty at a midthoracic level. No new compression fractures are evident. RAD/Chest PA and Lateral IMPRESSION: Multifocal linear scars in both lungs as described. Other findings as noted. There are no new pulmonary nodules. Reading Location: [place] [id number]
== END | disposition home or self-care (01) ==
PROVIDERS: PCP Nurse Practitioner Family; Referring Provider Internal Medicine Pulmonary Disease; Visit Provider Internal Medicine Pulmonary Disease
DX: R91.1 Solitary pulmonary nodule (principal)
CPT/HCPCS: 71046

== ENCOUNTER 2025-02-08 07:16 | Emergency (ER) | payer MEDICARE, OTHER, SELFPAY ==
[2025-02-08] VITALS (8 sets, daily range): BP systolic 102–123; BP diastolic 42–60; PULSE 65–77; RESP 12–22; TEMP 36.8–36.9; O2SAT 91–96; BMI 23.3
[2025-02-08 07:49] LABS: Hematocrit 36.5 % (37-47); Hemoglobin 11.9 g/dL (12.0-15.0); Immature Granulocytes Count 0.090 X10^3/uL (0.0-0.0); Mean Corp Hgb Conc 32.6 g/dL (32-36); Mean Corpuscular Volume 92.6 fL (81-99); Mean Platelet Vol. 10.1 fl (6.2-12.0); NRBC Flagged by Analyzer 0 % (0-5); POSITIVE DIFFERENTIAL YES; Platelet Count 270 K/mm3 (150-450); RBC Distribution Width CV 13.2 % (11.6-14.6); RBC Distribution Width SD 45.1 fl (35.1-43.9); Red Blood Count 3.94 M/mm3 (4.2-5.4); White Blood Count 16.2 K/mm3 (4.4-11.0)
[2025-02-08 07:50] LABS: Differential Indicated SCAN CRITERIA MET
[2025-02-08 08:15] LABS: Pro- Brain NATRIURETIC PEPTIDE 360 pg/mL (<=1800); Troponin T High Sensitivity 30 ng/L (<=14)
[2025-02-08 08:17] LABS: Anion Gap 11 (5-15); BUN 9 mg/dL (4-19); BUN/Creat Ratio 9.9 RATIO (10-20); Calcium,Total 8.5 mg/dL (7.6-11.0); Carbon Dioxide 22.8 mmol/L (21.0-32.0); Chloride 103 mmol/L (98-108); Estimated Creatinine Clearance 39.01 ml/min (50-250); Glucose 89 mg/dL (70-99); Potassium 3.7 mmol/L (3.3-5.1)
[2025-02-08 09:44] LABS: D-Dimer Quantitative (DVT/PE) 0.87 FEU/ug/m (0.27-0.49)
[2025-02-08 10:30] LABS: Troponin T High Sens 2 HR 27 ng/L (<=14)
== END 2025-02-08 12:14 | disposition home or self-care (01) ==
PROVIDERS: Emergency Provider Emergency Medicine; PCP Nurse Practitioner Family; Visit Provider Emergency Medicine
DX: J18.9 Pneumonia, unspecified organism (principal); J98.11 Atelectasis; R91.1 Solitary pulmonary nodule; J45.909 Unspecified asthma, uncomplicated; K21.9 Gastro-esophageal reflux disease without esophagitis; R06.02 Shortness of breath; Z87.891 Personal history of nicotine dependence
CPT/HCPCS: 71045; 71275; 80048; 83880; 84484; 85025; 85379; 87631; 93005; 94640; 96374; 99284; Q9967; A4216

== ENCOUNTER → 2025-02-12 | Outpatient (CLI) | payer MEDICARE, OTHER, SELFPAY ==
[2025-02-12 12:37] LABS: Hematocrit 37.7 % (37-47); Hemoglobin 12.6 g/dL (12.0-15.0); Immature Granulocytes Count 0.490 X10^3/uL (0.0-0.0); Mean Corp Hgb Conc 33.4 g/dL (32-36); Mean Corpuscular Volume 92.2 fL (81-99); Mean Platelet Vol. 10.6 fl (6.2-12.0); NRBC Flagged by Analyzer 0 % (0-5); POSITIVE DIFFERENTIAL YES; Platelet Count 330 K/mm3 (150-450); RBC Distribution Width CV 13.2 % (11.6-14.6); RBC Distribution Width SD 44.8 fl (35.1-43.9); Red Blood Count 4.09 M/mm3 (4.2-5.4); White Blood Count 13.6 K/mm3 (4.4-11.0)
[2025-02-12 12:39] LABS: Differential Indicated SCAN CRITERIA MET
[2025-02-12 13:01] LABS: Differential Comment SCANNED
[2025-02-12 13:38] LABS: CRP 87.40 mg/L (0.0-3.0)
[2025-02-13 16:09] LABS: Angiotensin Convert Enzyme 48 U/L (14-82)
== END | disposition home or self-care (01) ==
LOC: LAB 02-17 11:06
PROVIDERS: PCP Nurse Practitioner Family; Referring Provider Internal Medicine Pulmonary Disease; Visit Provider Internal Medicine Pulmonary Disease
DX: R91.1 Solitary pulmonary nodule (principal)
CPT/HCPCS: 36415; 82164; 85025; 85652; 86140

== ENCOUNTER → 2025-03-02 | Outpatient (CLI) | payer MEDICARE, OTHER, SELFPAY ==
--- NOTE | 2025-03-02 08:50 | RAD_ITS ---
PROCEDURE: CHEST PA AND LATERAL 03/02/2025 REASON FOR EXAM: COUGH VARIANT ASTHMA TECHNIQUE: Procedure Code: RADCXR Modality: DX Procedure: CHEST PA AND LATERAL COMPARISON: Chest x-ray dated 02/08/2025 FINDINGS: Hardware: None Heart: Heart size and configuration are within normal limits. Arteriosclerotic vascular disease of the aorta is noted. Mediastinum: Mediastinal silhouette is unremarkable. Calcified mediastinal lymph nodes are noted. Trachea is midline. Lungs: Linear densities are seen in the lung bases bilaterally and are similar when compared to the prior exam. This may represent atelectasis and/or parenchymal scarring. There are no pleural effusions. There are no pneumothoraces. Upper lung anderson are clear. Bones: Demineralization of the bony thorax is noted. RAD/Chest PA and Lateral IMPRESSION: The overall cardiopulmonary findings are similar when compared to the prior exa m. Bilateral atelectasis and/or parenchymal scarring. Reading Location: [id number]
== END | disposition home or self-care (01) ==
LOC: RAD.FUTURE 08:43 → RAD 08:44
PROVIDERS: PCP Nurse Practitioner Family; Referring Provider Internal Medicine Pulmonary Disease; Visit Provider Internal Medicine Pulmonary Disease
DX: J45.991 Cough variant asthma (principal)
CPT/HCPCS: 71046

== ENCOUNTER → 2025-03-10 | Outpatient (CLI) | payer MEDICARE, OTHER, SELFPAY ==
[2025-03-10 12:17] LABS: CRP < 3.00 mg/L (0.0-3.0)
== END | disposition home or self-care (01) ==
LOC: LAB 10:43
PROVIDERS: PCP Nurse Practitioner Family; Referring Provider Internal Medicine Pulmonary Disease; Visit Provider Internal Medicine Pulmonary Disease
DX: R91.1 Solitary pulmonary nodule (principal)
CPT/HCPCS: 36415; 86140